=== PATIENT | male | born 1970 | race Caucasian/White ===

== ENCOUNTER → 2017-12-28 06:42 | Outpatient (CLI) | payer BC, OTHER, SELFPAY ==
--- NOTE | 2017-12-28 06:48 | CT_ITS ---
STUDY: CT CHEST WITHOUT CONTRAST REASON FOR EXAM: Male, 47 years old. Dyspnea, sarcoidosis and asthma. RADIATION DOSAGE (If Supplied By Facility): CTDIvol = ( 16.61 ) mGy, DLP = ( 611.79 ) mGycm TECHNIQUE: Transaxial imaging was performed without the administration of intravenous contrast material. Individualized dose optimization techniques were used for this CT. COMPARISON: 14 October 2013 FINDINGS: The lungs are normal. There is no demonstrated pleural abnormality. Normal heart and pericardium. Scattered subcentimeter lymph nodes within the mediastinum are present. Normal hilar regions. Normal unenhanced pulmonary arteries. Normal aorta arch and descending thoracic aorta. Normal osseous structures. There is no demonstrated abnormality of the visualized upper abdomen. CT/Chest without Contrast IMPRESSION: No evidence of focal consolidation or evidence of acute airspace disease. Scattered mediastinal subcentimeter lymph nodes are present. Electronically Signed: Ranjit Diaz DO at 7:37 EST , Service support ,
== END ==
PROVIDERS: Family Provider Family Medicine; PCP Family Medicine; Visit Provider Internal Medicine Pulmonary Disease
DX: R06.00 Dyspnea, unspecified (principal)
CPT/HCPCS: 71250

== ENCOUNTER → 2018-05-27 11:47 | Outpatient (CLI) | payer BC, OTHER, SELFPAY ==
--- NOTE | 2018-05-27 12:09 | RAD_ITS ---
STUDY: X-RAY - PELVIS AND RIGHT HIP REASON FOR EXAM: Male, 47 years old. Right groin pain. Right hip pain. TECHNIQUE: Radiological exam, hip, unilateral, with pelvis when performed; 2 or 3 views. COMPARISON: None. FINDINGS: There is a non-specific bowel gas pattern. Normal visualized soft tissue structures. Normal bilateral iliac wings, sacroiliac joints and visualized sacrum. Normal bilateral superior and inferior pubic rami. Normal pubic symphysis. Normal bilateral ischial tuberosities. Normal visualized right femoral head. There is very minimal spurring of the right acetabulum Normal right hip joint. RAD/Hip 2-3 Views with Pelvis IMPRESSION: Minimal spurring of the right acetabulum without other abnormality. Electronically Signed: Ramos Chairez DO at 8:29 EDT Tel [phone], Service support ,
[2018-05-27 15:50] LABS: ALB/GLOB Ratio 1.1 RATIO (0.9-2.4); AST(SGOT) 23 U/L (15-37); Alanine Aminotransfer ALT/SGPT 46 U/L (16-61); Albumin, Serum 4.2 g/dL (3.2-5.0); Alkaline Phosphatase 56 U/L (45-117); Anion Gap 7 (5-15); BUN 13 mg/dL (7-18); BUN/Creat Ratio 14.7 RATIO (10-20); CPK Total, Creatine Kinase 390 U/L (39-308); Chloride 102 mmol/L (98-107); Creatinine, Serum 0.88 mg/dL (0.70-1.30); EST Glomerular Filtration Rate 98 mL/min (>60); Est Glom Filt Rate - Afr Amer 118 mL/min (>60); Globulin 3.7 g/dL (2.2-4.2); Glucose 112 mg/dL (74-106); Magnesium 2.1 mg/dL (1.6-2.6); Potassium 4.4 mmol/L (3.5-5.1); Protein, Total 7.9 g/dL (6.4-8.2); Sodium Level 140 mmol/L (136-145); Thyroid Stim Hormone (TSH) 1.44 uIU/mL (0.358-3.74)
[2018-05-27 16:07] LABS: Hemoglobin A1c 6.7 % (4.2-6.3)
[2018-05-27 16:35] LABS: Erythrocyte Sedimentation Rate 5 mm/hr (0-15)
== END ==
PROVIDERS: Visit Provider Family Medicine
DX: R25.2 Cramp and spasm (principal); E11.9 Type 2 diabetes mellitus without complications; K76.0 Fatty (change of) liver, not elsewhere classified; I10 Essential (primary) hypertension; D86.9 Sarcoidosis, unspecified
CPT/HCPCS: 36415; 73502; 80053; 82550; 83036; 83735; 84443; 85652; 86140

== ENCOUNTER → 2018-07-17 15:48 | Outpatient (CLI) | payer BC, OTHER, SELFPAY | PROVIDERS: Family Provider Family Medicine; PCP Family Medicine; Visit Provider Nurse Practitioner Family | DX: M54.5 Low back pain (principal); M54.17 Radiculopathy, lumbosacral region | CPT/HCPCS: 72110 ==

== ENCOUNTER → 2018-11-18 07:40 | Outpatient (CLI) | payer BC, OTHER, SELFPAY ==
--- NOTE | 2018-11-18 08:01 | RAD_ITS ---
STUDY: X-RAY CHEST REASON FOR EXAM: Male, 48 years old. Asthma sarcoid TECHNIQUE: PA and lateral views of the chest. COMPARISON: December 28, 2017 CT chest FINDINGS: On lateral view there is a focal infrahilar density projected over the lung bases. There is borderline cardiomegaly. Normal mediastinum and agustin. Normal visualized pulmonary arteries. Normal visualized aortic arch and descending thoracic aorta. There are diffuse degenerative changes of the visualized thoracic spine. Normal visualized ribs, clavicles, and shoulders. There is no demonstrated abnormality of the visualized soft tissue structures of the upper abdomen. RAD/Chest PA and Lateral IMPRESSION: Question infrahilar density projected over the lateral view only which may represent new mass lymph node or summation of shadows. Recommend follow-up CT scan of the chest to exclude mass. Electronically Signed: Payton Baptiste MD at 2:53 EST Tel , Service support ,
[2018-11-18 09:29] LABS: Erythrocyte Sedimentation Rate 12 mm/hr (0-15)
[2018-11-18 10:08] LABS: AST(SGOT) 24 U/L (15-37); Alanine Aminotransfer ALT/SGPT 54 U/L (16-61); Albumin, Serum 3.9 g/dL (3.2-5.0); Alkaline Phosphatase 71 U/L (45-117); Bilirubin, Direct 0.12 mg/dL (0.00-0.30); Globulin 3.7 g/dL (2.2-4.2); Protein, Total 7.6 g/dL (6.4-8.2)
[2018-11-19 14:24] LABS: Angiotensin Convert Enzyme 85 U/L (14-82)
--- OUTSIDE RECORDS SUMMARY | 2019-02-19 12:39 | XMS RPT_ITS ---
:1970 Author Organization OHIP Care Team Providers Name Role Phone Miki Gleason Attending Unavailable Miki Gleason Referring Unavailable Daniel Jimenez Primary Care Unavailable Miki Gleason Attending Unavailable Miki Gleason Referring Unavailable Daniel Jimenez Primary Care Unavailable Miki Gleason Attending Unavailable Daniel Jimenez Primary Care Unavailable Daniel Jimenez Attending Unavailable PrebiEstephanie bass INTRUSION ANALYST-C Attending Unavailable PrebishEstephanie INTRUSION ANALYST-C Referring Unavailable Daniel Jimenez Primary Care Unavailable PROBLEMS PROBLEMS DATE TYPE CONDITION / CODE ATTENDING STATUS SOURCE 07/17/2018 Unknown M54.5 - Low back PrebishEstephanie pain / INTRUSION ANALYST-C Community M54.5(ICD-10) Hospital Repository 07/17/2018 Unknown M54.17 - Prebish, Estephanie Active Epi Radiculopathy, INTRUSION ANALYST-C [facility] / M54.17(ICD-10) Repository 05/27/2018 Unknown R25.2 - Cramp and Daniel Jimenez spasm / Community R25.2(ICD-10) Hospital Repository 05/27/2018 Unknown E11.9 - Type 2 Daniel Jimenez diabetes mellitus Community without Hospital complications / Repository E11.9(ICD-10) 05/27/2018 Unknown K76.0 - Fatty Daniel Jimenez (change of) liver, Community not elsewhere Hospital classified / Repository K76.0(ICD-10) 05/27/2018 Unknown I10 - Essential Daniel Jimenez (primary) Community hypertension / Hospital I10(ICD-10) Repository 05/27/2018 Unknown D86.9 - Daniel Jimenez Sarcoidosis, Community unspecified / Hospital D86.9(ICD-10) Repository 05/27/2018 Unknown M25.551 - Pain in Daniel Jimenez right hip / Community M25.551(ICD-10) Hospital Repository PROCEDURES PROCEDURES No Procedure Records FoundRESULTS RESULTS CALCIUM,TOTAL Collected: 12/18/2018 Status: F Source: [place] 8:30 AM [facility] REPOSITORY TYPE CODE TESTS RESULT OUT OF RANGE REFERENCE UNITS LAB L501.2200 8.5-10.1 mg/dL Normal CA 9.3 Performed By: #### L501.2200, L501.5200, L501.5294 #### [facility] [address] [place], [place], [address] MAGNESIUM Collected: 12/18/2018 Status: F Source: [place] 8:30 AM [facility] REPOSITORY TYPE CODE TESTS RESULT OUT OF RANGE REFERENCE UNITS LAB L501.5200 1.6-2.6 mg/dL Normal MG 1.9 Performed By: #### L501.2200, L501.5200, L501.5294 #### [facility] [address] [place], [address] ELECTROLYTE PANEL Collected: 12/18/2018 Status: F Source: [place] 8:30 AM [facility] REPOSITORY TYPE CODE TESTS RESULT OUT OF RANGE REFERENCE UNITS LAB L501.5300 136-145 mmol/L Normal NA 138 LAB L501.5600 3.5-5.1 mmol/L Normal K 4.7 LAB L501.5900 98-107 mmol/L Normal CL 102 LAB L501.6100 21.0-32.0 mmol/L Normal CO2 30.0 LAB L501.6200 5-15 Normal GAP 6 Performed By: #### L501.2200, L501.5200, L501.5294 #### [facility] [address] [place], [address] CHEST PA AND LATERAL Observed: 11/18/2018 Status: F Source: [place] 8:01 AM [facility] REPOSITORY [facility] Imaging Services [address] [place] [address] [place] [address] Chest PA and Lateral MR#: [id number] Acct: [id number] Name: JAKE CANTRELL Rep #: [id number] : 1970 M 48 From: Payton Baptiste MD PCP: Daniel Jimenez DO Status: REG CLI Study: Chest PA and Lateral Date of Exam: 11/18/18 Exam# [id number] Ordering Dr: Miki Gleason MD STUDY: X-RAY CHEST REASON FOR EXAM: Male, 48 years old. Asthma sarcoid TECHNIQUE: PA and lateral views of the chest. COMPARISON: December 28, 2017 CT chest FINDINGS: On lateral view there is a focal infrahilar density projected over the lung bases. There is borderline cardiomegaly. Normal mediastinum and agustin. Normal visualized pulmonary arteries. Normal visualized aortic arch and descending thoracic aorta. There are diffuse degenerative changes of the visualized thoracic spine. Normal visualized ribs, clavicles, and shoulders. There is no demonstrated abnormality of the visualized soft tissue structures of the upper abdomen. RAD/Chest PA and Lateral IMPRESSION: Question infrahilar density projected over the lateral view only which may represent new mass lymph node or summation of shadows. Recommend follow-up CT scan of the chest to exclude mass. Electronically Signed: Payton Baptiste MD at 2:53 EST Tel , Service support , CC: Daniel Jimenez DO; Miki Gleason MD Suction Worker: Signed ERYTHROCYTE SED RATE Collected: 11/18/2018 Status: F Source: [place] 7:49 AM [facility] REPOSITORY TYPE CODE TESTS RESULT OUT OF RANGE REFERENCE UNITS LAB L102.0000 0-15 mm/hr Normal SED RATE 12 Performed By: #### L101.9900 #### [facility] [address] [place], [place], [id number] LIVER PROFILE Collected: 11/18/2018 Status: F Source: [place] 7:49 AM [facility] REPOSITORY TYPE CODE TESTS RESULT OUT OF RANGE REFERENCE UNITS LAB L501.1500 6.4-8.2 g/dL Normal T PROT 7.6 LAB L501.1800 3.2-5.0 g/dL Normal ALB 3.9 LAB L501.1950 2.2-4.2 g/dL Normal GLOB 3.7 LAB L501.4100 15-37 U/L Normal AST 24 LAB L501.4305 45-117 U/L Normal ALK P 71 LAB L501.4405 16-61 U/L Normal ALT 54 LAB L501.4600 0.20-1.00 mg/dL Normal T BILI 0.40 LAB L501.4700 0.00-0.30 mg/dL Normal D BILI 0.12 Performed By: #### L500.3400, L501.6750 #### [facility] [address] [place], [place], [address] CRP, HIGH SENSITIVITY Collected: 11/18/2018 Status: F Source: [place] CARDIAC 7:49 AM [facility] REPOSITORY TYPE CODE TESTS RESULT OUT OF RANGE REFERENCE UNITS LAB L501.6750 mg/L High CRP HIGH 12.40 SENS Result Comment: Low Relative Risk of CVD <1.0 mg/L Average Relative Risk of CVD 1.0 - 3.0 mg/L High Relative Risk of CVD >3.0 mg/L Performed By: #### L500.3400, L501.6750 #### [facility] [address] [place], [address] ANGIOTENSIN CONVERT Collected: 11/18/2018 Status: F Source: [place] ENZYME 7:49 AM [facility] REPOSITORY TYPE CODE TESTS RESULT OUT OF RANGE REFERENCE UNITS LAB L3100.6900 14-82 U/L High JAMES 21079 85 Result Comment: Performed at: [facility] [id number] Clinical Services Director: Jonny Damon PhD, Phone: [phone] Performed By: #### L3100.6900 #### [facility] (refer to report for specific site) refer to report for address and phone number L/S SPINE MIN 4 Observed: 07/17/2018 Status: F Source: [place] VIEWS 3:52 PM [facility] REPOSITORY [facility] Imaging Services [address] [place] [address] L/S Spine Min 4 Views MR#: [id number] Acct: [id number] Name: JAKE CANTRELL Rep #: [id number] : 1970 M 47 From: Alberto Hairston PCP: Daniel Jimenez DO Status: REG CLI Study: L/S Spine Min 4 Views Date of Exam: 07/17/18 Exam# [id number] Ordering Dr: Estephanie Venegas INTRUSION ANALYSTLyndsey STUDY: X-RAY - LUMBAR SPINE REASON FOR EXAM: Male, 47 years old. Back pain TECHNIQUE: 5 view(s) of the lumbar spine were obtained. COMPARISON: None FINDINGS: Normal lumbar lordosis. There is no substantial scoliosis. There is a normal alignment of the vertebrae. Normal vertebral bodies and endplates. Normal disc space heights. The soft tissue structures are unremarkable. RAD/L/S Spine Min 4 Views IMPRESSION: Normal x-ray examination of the lumbar spine. Electronically Signed: Alberto Hairston MD at 6:42 EDT , Service support , CC: Estephanie Venegas; Daniel Jimenez DO Suction Worker: Signed HIP 2-3 VIEWS WITH Observed: 05/27/2018 Status: F Source: [place] PELVIS 12:09 PM [facility] REPOSITORY [facility] Imaging Services [address] [address] Hip 2-3 Views with Pelvis MR#: [id number] Acct: [id number] Name: JAKE CANTRELL Rep #: [id number] : 1970 M 47 From: Ramos Chairez DO PCP: Status: REG CLI Study: Hip 2-3 Views with Pelvis Date of Exam: 05/27/18 Exam# [id number] Ordering Dr: Daniel Jimenez DO STUDY: X-RAY - PELVIS AND RIGHT HIP REASON FOR EXAM: Male, 47 years old. Right groin pain. Right hip pain. TECHNIQUE: Radiological exam, hip, unilateral, with pelvis when performed; 2 or 3 views. COMPARISON: None. FINDINGS: There is a non-specific bowel gas pattern. Normal visualized soft tissue structures. Normal bilateral iliac wings, sacroiliac joints and visualized sacrum. Normal bilateral superior and inferior pubic rami. Normal pubic symphysis. Normal bilateral ischial tuberosities. Normal visualized right femoral head. There is very minimal spurring of the right acetabulum Normal right hip joint. RAD/Hip 2-3 Views with Pelvis IMPRESSION: Minimal spurring of the right acetabulum without other abnormality. Electronically Signed: Ramos AtlantaDO at 8:29 EDT Tel [phone], Service support , CC: Daniel VeraBarbaraquan CARMEN Suction Worker: Signed COMPREHENSIVE METABOLIC Collected: 05/27/2018 Status: F Source: [place] PROFIL 11:49 AM [facility] REPOSITORY TYPE CODE TESTS RESULT OUT OF RANGE REFERENCE UNITS LAB L501.0100 74-106 mg/dL High GLU 112 Result Comment: Fasting Glucose result from 100 to 125 mg/dL suggests IMPAIRED HOMEOSTASIS per A.D.A. criteria. Please note revised GLUCOSE reference range effective 2018. LAB L501.1000 7-18 mg/dL Normal BUN 13 LAB L501.1100 0.70-1.30 mg/dL Normal CREAT,SERUM 0.88 Result Comment: The validity of the calculated GFR AND GFRAA in patients over 70 years has not been determined. Clinical correlation is essential. LAB L501.1110 >60 mL/min Normal EST GFR 98 Result Comment: Non- GFR Calc LAB L501.1115 >60 mL/min Normal EST GFR - AA 118 Result Comment: GFR Calc LAB L501.1300 10-20 RATIO Normal BUN/CRE 14.7 LAB L501.1500 6.4-8.2 g/dL T Normal PROT 7.9 LAB L501.1800 3.2-5.0 g/dL Normal ALB 4.2 LAB L501.1950 2.2-4.2 g/dL Normal GLOB 3.7 LAB L501.2000 0.9-2.4 RATIO Normal A/G 1.1 LAB L501.2200 8.5-10.1 mg/dL CA Normal 9.0 LAB L501.4100 15-37 U/L Normal AST 23 LAB L501.4305 45-117 U/L Normal ALK P 56 LAB L501.4405 16-61 U/L Normal ALT 46 LAB L501.4600 0.20-1.00 mg/dL T Normal BILI 0.50 LAB L501.5300 136-145 mmol/L NA Normal 140 LAB L501.5600 3.5-5.1 mmol/L K Normal 4.4 LAB L501.5900 98-107 mmol/L CL Normal 102 LAB L501.6100 21.0-32.0 mmol/L Normal CO2 31.0 LAB L501.6200 5-15 Normal GAP 7 Performed By: #### L500.4050, L501.3620, L501.5200, L501.6710, L501.9520 #### [facility] [address] [place], [address] CPK TOTAL, CREATINE Collected: 05/27/2018 Status: F Source: [place] KINASE 11:49 AM [facility] REPOSITORY TYPE CODE TESTS RESULT OUT OF RANGE REFERENCE UNITS LAB L501.3620 39-308 U/L High CPK TOTAL 390 Performed By: #### L500.4050, L501.3620, L501.5200, L501.6710, L501.9520 #### [facility] [address] [place], [address] MAGNESIUM Collected: 05/27/2018 Status: F Source: [place] 11:49 AM [facility] REPOSITORY TYPE CODE TESTS RESULT OUT OF RANGE REFERENCE UNITS LAB L501.5200 1.6-2.6 mg/dL Normal MG 2.1 Performed By: #### L500.4050, L501.3620, L501.5200, L501.6710, L501.9520 #### [facility] [address] [place], [address] CRP Collected: 05/27/2018 Status: F Source: [place] 11:49 AM [facility] REPOSITORY TYPE CODE TESTS RESULT OUT OF RANGE REFERENCE UNITS LAB L501.6710 0.0-3.0 mg/L High 7.40 C-REACTIVE PROT Result Comment: C-Reactive Protein (CRP) provides useful information for the diagnosis, therapy and monitoring of inflammatory processes and associated diseases. For the evaluation of Relative Risk for Cardiovascular Disease, a High Sensitivity CRP (HSCRP) should be ordered. Performed By: #### L500.4050, L501.3620, L501.5200, L501.6710, L501.9520 #### [facility] [address] [place], [address] THYROID STIM HORMONE Collected: 05/27/2018 Status: F Source: [place] (TSH) 11:49 AM [facility] REPOSITORY TYPE CODE TESTS RESULT OUT OF RANGE REFERENCE UNITS LAB L501.9520 0.358-3.74 uIU/mL Normal TSH 1.44 Performed By: #### L500.4050, L501.3620, L501.5200, L501.6710, L501.9520 #### [facility] [address] [place], [address] HEMOGLOBIN A1C Collected: 05/27/2018 Status: F Source: [place] 11:49 AM [facility] REPOSITORY TYPE CODE TESTS RESULT OUT OF RANGE REFERENCE UNITS LAB L501.9985 4.2-6.3 % High HGB A1C 6.7 Performed By: #### L501.9985 #### [facility] [address] [place], [address] ERYTHROCYTE SED RATE Collected: 05/27/2018 Status: F Source: [place] 11:49 AM [facility] REPOSITORY TYPE CODE TESTS RESULT OUT OF RANGE REFERENCE UNITS LAB L102.0000 0-15 mm/hr Normal SED RATE 5 Performed By: #### L101.9900 #### [facility] [address] [place], [address] CHEST WITHOUT Observed: 12/28/2017 Status: F Source: [place] CONTRAST 6:48 AM [facility] REPOSITORY [facility] Imaging Services [address] [place] [address] Chest without Contrast MR#: [id number] Acct: [id number] Name: JAKE CANTRELL Rep #: [id number] : 1970 M 47 From: Ranjit Diaz DO PCP: Daniel Jimenez DO Status: REG CLI Study: Chest without Contrast Date of Exam: 12/28/17 Exam# [id number] Ordering Dr: Miki Gleason MD STUDY: CT CHEST WITHOUT CONTRAST REASON FOR EXAM: Male, 47 years old. Dyspnea, sarcoidosis and asthma. RADIATION DOSAGE (If Supplied By Facility): CTDIvol = ( 16.61 ) mGy, DLP = ( 611.79 ) mGycm TECHNIQUE: Transaxial imaging was performed without the administration of intravenous contrast material. Individualized dose optimization techniques were used for this CT. COMPARISON: 14 October 2013 FINDINGS: The lungs are normal. There is no demonstrated pleural abnormality. Normal heart and pericardium. Scattered subcentimeter lymph nodes within the mediastinum are present. Normal hilar regions. Normal unenhanced pulmonary arteries. Normal aorta arch and descending thoracic aorta. Normal osseous structures. There is no demonstrated abnormality of the visualized upper abdomen. CT/Chest without Contrast IMPRESSION: No evidence of focal consolidation or evidence of acute airspace disease. Scattered mediastinal subcentimeter lymph nodes are present. Electronically Signed: Ranjit Diaz DO at 7:37 EST , Service support , CC: Daniel Jimenez DO; Miki Gleason MD Suction Worker: Signed ALLERGIES ALLERGIES DATE TYPE / CODE NAME / CODE REACTION SEVERITY SOURCE 10/04/2017 Drug No Known Unknown [facility] Allergy/4160 Allergies/F00 Hospital 92585(SNOMED [id number](RXNOR Repository CT) M) ENCOUNTERS ENCOUNTERS ADMIT/DISCHARGE ACCOUNT ADMITTING ENCOUNTER LOCATION SOURCE NUMBER CLASS 12/18/2018 [id number] Ambulatory Epi [place] 8 [facility] ing:LABSPEC Repository 11/18/2018 [id number] Ambulatory Epi [place] 6 [facility] ing:LAB Repository 07/17/2018 [id number] Ambulatory Epi [place] 7 [facility] ing:MTRAD Repository 05/27/2018 [id number] [place] [facility] ing:BFHLAB Repository 12/28/2017 [id number] [place] 0 [facility] ing:CT Repository PAYERS PAYERS ENCOUNTER GUARANTOR PAYER SUBSCRIBER SOURCE 12/18/2018 JAKE D Primary JAKE D [place] [id number] Insurance:ANTHEMPolic BISESIDOB: [facility] y Number: [id number] [id number] Repository 313[address]Yot: ([phone]) Date:2259-91-73HE [phone] () [id number] [place] [address] 410[address]ZJ: 12/18/2018 Secondary BJ M [place] Insurance:MEDICAL BISESIDOB: [facility] [id number] Hospital Number: Repository [id number] Date:0601-31-61YJ [address] [place] [phone]: 12/18/2018 Tertiary NOT GIVENUNK Epi Insurance:SELF PAY [facility] Number: Effective Repository Date:2018-12-18 11/18/2018 JAKE D Primary JAKE D Epi [id number] Insurance:ANTHEMPolic BISESIDOB: [facility] y Number: [id number], [place] [id number] Repository [address]Hqy: ([phone]) Date:4141-78-05EV [phone] () [id number] [place] [address]92[address]WH: 11/18/2018 Secondary BJ M [place] Insurance:MEDICAL BISESIDOB: [facility] [id number] Hospital Number: Repository [id number] Date:1140-00-76SD [address] [place] [phone]: 11/18/2018 Tertiary NOT GIVENUNK Epi Insurance:SELF PAY [facility] Number: Effective Repository Date:2018-11-18 07/17/2018 JAKE D Primary JAKE D [place] [id number] Insurance:ANTHEMPolic BISESIDOB: [facility] y Number: [id number], [place] [id number] Repository [address]Oyp: [phone]) Date:5892-47-30NL [phone] () [place], [place] [address]EU: 07/17/2018 Secondary BJ M [place] Insurance:MEDICAL BISESIDOB: [facility] [id number] Hospital Number: Repository [id number] Date:3508-20-56UR [address] [place] [phone]: 07/17/2018 Tertiary NOT GIVENUNK [place] Insurance:SELF PAY [facility] Hospital Number: Effective Repository Date:2018-07-17 05/27/2018 Jake Primary Jake Epi [id number] Insurance:ANTHEMPolic BisesiDOB: [facility] y Number: [id number] [id number] Repository [address]Pob: [phone]) Date:5649-96-67AR [phone] () [id number] [place] [address]AA: 05/27/2018 Secondary BJ M [place] Insurance:MEDICAL BISESIDOB: [facility] [id number] Hospital Number: Repository [id number] Date:4209-00-47YB [address] [place] [phone]: 05/27/2018 Tertiary NOT GIVENUNK Epi Insurance:SELF PAY [facility] Number: Effective Repository Date:2018-05-27 12/28/2017 Jake Primary Jake Epi [id number] Insurance:ANTHEMPolic BisesiDOB: [facility] y Number: [id number] [id number] Repository [address]Smx: Date:7055-63-72FT [phone] [id number] SIMMS -4 () [id number]: 12/28/2017 Secondary BJ M Epi Insurance:MEDICAL BISESIDOB: [facility] [id number] Hospital Number: Repository [id number] Date:2482-70-59KV [address] [place] [phone]: 12/28/2017 Tertiary NOT GIVENUNK Epi Insurance:SELF PAY [facility] Number: Effective Repository Date:2017-12-24
== END ==
PROVIDERS: Family Provider Family Medicine; PCP Family Medicine; Referring Provider Internal Medicine Pulmonary Disease; Visit Provider Internal Medicine Pulmonary Disease
DX: J45.909 Unspecified asthma, uncomplicated (principal)
CPT/HCPCS: 36415; 71046; 80076; 82164; 85652; 86141

== ENCOUNTER → 2018-12-18 12:55 | Outpatient (CLI) | payer BC, OTHER, SELFPAY ==
[2018-12-18 13:22] LABS: Anion Gap 6 (5-15); Calcium,Total 9.3 mg/dL (8.5-10.1); Chloride 102 mmol/L (98-107); Magnesium 1.9 mg/dL (1.6-2.6); Potassium 4.7 mmol/L (3.5-5.1); Sodium Level 138 mmol/L (136-145)
--- OUTSIDE RECORDS SUMMARY | 2019-02-22 05:30 | XMS RPT_ITS ---
:1970 Author Organization OHIP Care Team Providers Name Role Phone Miki Gleason Attending Unavailable Miki Gleason Referring Unavailable Daniel Jimenez Primary Care Unavailable Miki Gleason Attending Unavailable Miki Gleason Referring Unavailable Daniel Jimenez Primary Care Unavailable Daniel Jimenez Attending Unavailable Prebish, Estephanie CLINICAL LAW PROFESSOR-C Attending Unavailable Prebish, Estephanie CLINICAL LAW PROFESSOR-C Referring Unavailable Daniel Jimenez Primary Care Unavailable PROBLEMS PROBLEMS DATE TYPE CONDITION / CODE ATTENDING STATUS SOURCE 07/17/2018 Unknown M54.5 - Low back Prebish, Estephanie Active Epi pain / CLINICAL LAW PROFESSOR-C [facility] M54.5(ICD-10) Hospital Repository 07/17/2018 Unknown M54.17 - Prebish, Estephanie Active Epi Radiculopathy, CLINICAL LAW PROFESSOR-C [facility] lumbosacral [facility] / M54.17(ICD-10) Repository 05/27/2018 Unknown R25.2 - Cramp and Daniel Jimenez spasm / Community R25.2(ICD-10) Hospital Repository 05/27/2018 Unknown E11.9 - Type 2 Daniel Jimenez Active Epi diabetes mellitus Community without Hospital complications / [...] RESULTS CALCIUM,TOTAL Collected: 12/18/2018 Status: F Source: EPI 8:30 AM [facility] REPOSITORY TYPE CODE TESTS RESULT OUT OF RANGE REFERENCE UNITS LAB L501.2200 8.5-10.1 mg/dL Normal CA 9.3 Performed By: #### L501.2200, L501.5200, L501.5294 #### [facility] [address] [place], [place], [id number] MAGNESIUM Collected: 12/18/2018 Status: F Source: EPI 8:30 AM [facility] REPOSITORY TYPE CODE TESTS RESULT OUT OF RANGE REFERENCE UNITS LAB L501.5200 1.6-2.6 mg/dL Normal MG 1.9 Performed By: #### L501.2200, L501.5200, L501.5294 #### [facility] [address] [place], [address] ELECTROLYTE PANEL Collected: 12/18/2018 Status: F Source: [place] 8:30 AM [facility] REPOSITORY TYPE CODE TESTS RESULT OUT OF RANGE REFERENCE UNITS LAB L501.5300 136-145 mmol/L Normal NA 138 LAB L501.5600 3.5-5.1 mmol/L Normal K 4.7 LAB L501.5900 98-107 mmol/L Normal CL 102 LAB L501.6100 21.0-32.0 mmol/L Normal CO2 30.0 LAB L501.6200 5-15 Normal GAP 6 Performed By: #### L501.2200, L501.5200, L501.5294 #### [facility] [address] [place], [address] CHEST PA AND LATERAL Observed: 11/18/2018 Status: F Source: [place] 8:01 AM [facility] REPOSITORY [facility] Imaging Services [address] [address] Chest PA and Lateral MR#: [id number] Acct: [id number] Name: JAKE CANTRELL Rep #: [id number] : 1970 M 48 From: Payton Baptiste MD PCP: Daniel Jimenez DO Status: REG CLI Study: Chest PA and Lateral Date of Exam: 11/18/18 Exam# [id number] Ordering Dr: Miki Gleason MD STUDY: X-RAY [...] CC: Daniel Jimenez DO; Miki Gleason MD Coremaker Pipe: Signed ERYTHROCYTE SED RATE Collected: 11/18/2018 Status: F Source: EPI 7:49 AM [facility] REPOSITORY TYPE CODE TESTS RESULT OUT OF RANGE REFERENCE UNITS LAB L102.0000 0-15 mm/hr Normal SED RATE 12 Performed By: #### L101.9900 #### [facility] [address] [place], [place], [id number] LIVER PROFILE Collected: 11/18/2018 Status: F Source: EPI 7:49 AM [facility] REPOSITORY TYPE CODE TESTS RESULT OUT OF [...] 0.12 Performed By: #### L500.3400, L501.6750 #### [facility] [address] [place], [place], [id number] CRP, HIGH SENSITIVITY Collected: 11/18/2018 Status: F Source: EPI CARDIAC 7:49 AM [facility] REPOSITORY TYPE CODE TESTS RESULT OUT OF RANGE REFERENCE UNITS LAB L501.6750 mg/L High CRP HIGH 12.40 SENS Result Comment: Low Relative Risk of CVD <1.0 mg/L Average Relative Risk of CVD 1.0 - 3.0 mg/L High Relative Risk of CVD >3.0 mg/L Performed By: #### L500.3400, L501.6750 #### [facility] [address] [place], [address] ANGIOTENSIN CONVERT Collected: 11/18/2018 Status: F Source: EPI ENZYME 7:49 AM [facility] REPOSITORY TYPE CODE TESTS RESULT OUT OF RANGE REFERENCE UNITS LAB L3100.6900 14-82 U/L High JAMES [address] 85 Result Comment: Performed at: - [facility] [id number] Roof Tile Layer: Jonny Damon PhD, Phone: [phone] Performed By: #### L3100.6900 #### [facility] (refer to report for specific site) refer to report for address and phone number L/S SPINE MIN 4 Observed: 07/17/2018 Status: F Source: EPI VIEWS 3:52 PM [facility] REPOSITORY [facility] Imaging Services [address] [address] L/S Spine Min 4 Views MR#: [id number] Acct: [id number] Name: JAKE CANTRELL Rep #: [id number] : 1970 M 47 From: Alberto Hairston PCP: Daniel Jimenez DO Status: REG CLI Study: L/S Spine Min 4 Views Date of Exam: 07/17/18 Exam# [id number] Ordering Dr: Estephanie Venegas STUDY: X-RAY - LUMBAR SPINE REASON FOR [...] , CC: Estephanie Venegas; Daniel Jimenez DO Coremaker Pipe: Signed HIP 2-3 VIEWS WITH Observed: 05/27/2018 Status: F Source: [place] PELVIS 12:09 PM [facility] REPOSITORY [facility] Imaging Services [address] [address] Hip 2-3 Views with Pelvis MR#: [id number] Acct: [id number] Name: JAKE CANTRELL Rep #: [id number] : 1970 M 47 From: Ramos Chairez DO PCP: Status: REG CLI Study: Hip 2-3 Views with Pelvis Date of Exam: 05/27/18 Exam# [id number] Ordering Dr: Daniel Jimenez DO STUDY: X-RAY [...] acetabulum without other abnormality. Electronically Signed: Ramos Chairez DO at 8:29 EDT Tel [phone], Service support , CC: Daniel Jimenez DO Coremaker Pipe: Signed COMPREHENSIVE METABOLIC Collected: 05/27/2018 Status: F Source: EPI REBOLLEDO 11:49 AM [facility] REPOSITORY TYPE CODE TESTS RESULT OUT OF [...] #### L500.4050, L501.3620, L501.5200, L501.6710, L501.9520 #### [facility] [address] [place], [address] CPK TOTAL, CREATINE Collected: 05/27/2018 Status: F Source: EPI KINASE 11:49 AM [facility] REPOSITORY TYPE CODE TESTS RESULT OUT OF RANGE REFERENCE UNITS LAB L501.3620 39-308 U/L High CPK TOTAL 390 Performed By: #### L500.4050, L501.3620, L501.5200, L501.6710, L501.9520 #### [facility] [address] [place], [address] MAGNESIUM Collected: 05/27/2018 Status: F Source: EPI 11:49 AM [facility] REPOSITORY TYPE CODE TESTS RESULT OUT OF RANGE REFERENCE UNITS LAB L501.5200 1.6-2.6 mg/dL Normal MG 2.1 Performed By: #### L500.4050, L501.3620, L501.5200, L501.6710, L501.9520 #### [facility] [address] [place], [address] CRP Collected: 05/27/2018 Status: F Source: EPI 11:49 AM [facility] REPOSITORY TYPE CODE TESTS RESULT OUT OF [...] #### L500.4050, L501.3620, L501.5200, L501.6710, L501.9520 #### [facility] [address] [place], [address] THYROID STIM HORMONE Collected: 05/27/2018 Status: F Source: EPI (TSH) 11:49 AM [facility] REPOSITORY TYPE CODE TESTS RESULT OUT OF RANGE REFERENCE UNITS LAB L501.9520 0.358-3.74 uIU/mL Normal TSH 1.44 Performed By: #### L500.4050, L501.3620, L501.5200, L501.6710, L501.9520 #### [facility] [address] [place], [address] HEMOGLOBIN A1C Collected: 05/27/2018 Status: F Source: EPI 11:49 AM [facility] REPOSITORY TYPE CODE TESTS RESULT OUT OF RANGE REFERENCE UNITS LAB L501.9985 4.2-6.3 % High HGB A1C 6.7 Performed By: #### L501.9985 #### [facility] [address] [place], [address] ERYTHROCYTE SED RATE Collected: 05/27/2018 Status: F Source: EPI 11:49 AM [facility] REPOSITORY TYPE CODE TESTS RESULT OUT OF RANGE REFERENCE UNITS LAB L102.0000 0-15 mm/hr Normal SED RATE 5 Performed By: #### L101.9900 #### [facility] [address] [place], [address] ALLERGIES ALLERGIES DATE TYPE / CODE NAME / CODE REACTION SEVERITY SOURCE 10/04/2017 Drug No Known Unknown [facility] Allergy/4160 Allergies/F00 [facility] [address]39(SNOMED 2420158(RXNOR Repository CT) M) ENCOUNTERS ENCOUNTERS ADMIT/DISCHARGE ACCOUNT ADMITTING ENCOUNTER LOCATION SOURCE NUMBER CLASS 12/18/2018 [id number] Ambulatory [facility] 8 [facility] ing:LABSPEC Repository 11/18/2018 [id number] Ambulatory [facility] 6 [facility] ing:LAB Repository 07/17/2018 [id number] Ambulatory [facility] 7 [facility] ing:MTRAD Repository 05/27/2018 [id number] Ambulatory [facility] 7 [facility] ing:BFHLAB Repository PAYERS PAYERS ENCOUNTER GUARANTOR PAYER SUBSCRIBER SOURCE 12/18/2018 JAKE Loya Primary JAKE Sarkaroster [id number] Insurance:ANTHEMPolic BISESIDOB: [facility] y [place]: [id number] [id number] Repository [address]Ebs: (330) Date:4569-67-94BO [phone] () [address] [place] [address]DA: 12/18/2018 Secondary BJ M [place] Insurance:MEDICAL BISESIDOB: [facility] [id number] Hospital Number: Repository [id number] Date:8334-84-61UH [address] [place] [address]UM: 12/18/2018 Tertiary NOT GIVENUNK [place] Insurance:SELF PAY [facility] Hospital Number: Effective Repository Date:2018-12-18 11/18/2018 JAKE D Primary JAKE D Epi [id number] Insurance:ANTHEMPolic BISESIDOB: [facility] y Number: [id number] [id number] Repository [address]Nod: (330) Date:9701-98-09EI [phone] () [id number] [place] [address]CZ: 11/18/2018 Secondary BJ M [place] Insurance:MEDICAL BISESIDOB: [facility] [id number] Hospital Number: Repository [id number] Date:1180-27-16UH [address] [address]BG: 11/18/2018 Tertiary NOT GIVENUNK Epi Insurance:SELF PAY [facility] Hospital Number: Effective Repository Date:2018-11-18 07/17/2018 JAKE D Primary JAKE D [place] [id number] Insurance:ANTHEMPolic BISESIDOB: [facility] [place] y Number: [id number] [id number] Repository [address]Btk: ([phone]) Date:7348-04-44FV [phone] () [id number] [place] [address]LA: 07/17/2018 Secondary BJ M [place] Insurance:MEDICAL BISESIDOB: [facility] [id number] Hospital Number: Repository [id number] Date:2044-42-45[address], [place] [address]PN: 07/17/2018 Tertiary NOT GIVENUNK Epi Insurance:SELF PAY [facility] Number: Effective Repository Date:2018-07-17 05/27/2018 Jake Primary Jake [place] [id number] Insurance:ANTHEMPolic BisesiDOB: [facility] Number: [id number] [id number] Repository [address]Hkb: 330) Date:7837-17-22UO [phone] () [address], [place] [address]AN: 05/27/2018 Secondary BJ M [place] Insurance:MEDICAL BISESIDOB: [facility] [id number] Hospital Number: Repository [id number] Date:3752-29-71PA [address], [place] [address]BE: 05/27/2018 Tertiary NOT GIVENUNK Epi Insurance:SELF PAY [facility] Hospital Number: Effective Repository Date:2018-05-27
== END ==
PROVIDERS: Family Provider Family Medicine; PCP Family Medicine; Referring Provider Internal Medicine Pulmonary Disease; Visit Provider Internal Medicine Pulmonary Disease
DX: J45.909 Unspecified asthma, uncomplicated (principal); D86.9 Sarcoidosis, unspecified
CPT/HCPCS: 80051; 82310; 83735

== ENCOUNTER → 2019-01-23 16:18 | Outpatient (CLI) | payer BC, OTHER, SELFPAY ==
[2019-01-23 17:01] LABS: Erythrocyte Sedimentation Rate 13 mm/hr (0-15)
[2019-01-26 15:38] LABS: Angiotensin Convert Enzyme 105 U/L (14-82)
== END ==
PROVIDERS: Family Provider Family Medicine; PCP Family Medicine; Referring Provider Internal Medicine Pulmonary Disease; Visit Provider Internal Medicine Pulmonary Disease
DX: J45.909 Unspecified asthma, uncomplicated (principal); D86.9 Sarcoidosis, unspecified; M25.50 Pain in unspecified joint
CPT/HCPCS: 36415; 82164; 85652; 87804

== ENCOUNTER → 2019-02-10 13:11 | Outpatient (CLI) | payer BC, OTHER, SELFPAY ==
[2019-02-10 13:22] LABS: Absolute Lymphocyte Count 1.07 X10^3/ul (0.83-4.51); Absolute Neutrophil Count 3.2 X10^3/uL (2.0-7.7); Basophil# 0.03 X10^3/uL; Basophil% 0.6 % (0-1); Eosinophil# 0.24 X10^3/uL; Eosinophils% 4.7 % (0-5); Hematocrit 44.7 % (40-54); Hemoglobin 13.9 g/dl (13.0-16.5); Lymphocyte # 1.07 X10^3/ul (4.0); Lymphocyte % 20.9 % (19-41); Mean Corp Hgb Conc 31.1 g/gl (32-36); Mean Corpuscular Hgb 26.1 pg (27.0-32.0); Mean Platelet Vol. 10.7 fl (6.2-12.0); Monocyte# 0.55 X10^3/uL; Monocyte% 10.7 % (0-10); Neutrophil # 3.21 X10^3/uL (2.7-7.7); Neutrophil % 62.7 % (47-70); Platelet Count 228 K/mm3 (150-450); RBC Distribution Width CV 13.4 % (11.6-14.6); RBC Distribution Width SD 41.5 fl (35.1-43.9); Red Blood Count 5.32 M/mm3 (4.6-6.2); White Blood Count 5.1 K/mm3 (4.4-11.0)
[2019-02-10 13:24] LABS: POSITIVE COUNT NO; POSITIVE DIFFERENTIAL NO; POSITIVE MORPHOLOGY NO
[2019-02-10 13:44] LABS: AST(SGOT) 32 U/L (15-37); Alanine Aminotransfer ALT/SGPT 71 U/L (16-61); Albumin, Serum 4.1 g/dL (3.2-5.0); Alkaline Phosphatase 70 U/L (45-117); Anion Gap 9 (5-15); BUN 13 mg/dL (7-18); BUN/Creat Ratio 13.9 RATIO (10-20); Calcium,Total 9.3 mg/dL (8.5-10.1); Chloride 99 mmol/L (98-107); Cholesterol 212 mg/dL (200); Creatinine, Serum 0.94 mg/dL (0.70-1.30); EST Glomerular Filtration Rate 91 mL/min (>60); Est Glom Filt Rate - Afr Amer 110 mL/min (>60); Glucose 189 mg/dL (74-106); High Density Lipoprotein 39 mg/dL; Potassium 4.5 mmol/L (3.5-5.1); Protein, Total 8.1 g/dL (6.4-8.2); Sodium Level 138 mmol/L (136-145); Thyroid Stim Hormone (TSH) 1.67 uIU/mL (0.358-3.74); Triglycerides 170 mg/dL; Very Low Density Lipoprotein 34 mg/dL (5-40)
[2019-02-10 13:49] LABS: Microalbumin,Random Urine < 5.0 mg/L (NO RANGE EST.)
== END ==
PROVIDERS: Family Provider Family Medicine; PCP Family Medicine; Referring Provider Family Medicine; Visit Provider Family Medicine
DX: I10 Essential (primary) hypertension (principal); E11.9 Type 2 diabetes mellitus without complications; R00.0 Tachycardia, unspecified
CPT/HCPCS: 80053; 80061; 82043; 82570; 83036; 84443; 85025

== ENCOUNTER → 2019-03-12 12:30 | Outpatient (CLI) | payer BC, OTHER, SELFPAY ==
[2019-03-12 13:11] LABS: AST(SGOT) 31 U/L (15-37); Alanine Aminotransfer ALT/SGPT 58 U/L (16-61); Albumin, Serum 4.4 g/dL (3.2-5.0); Alkaline Phosphatase 77 U/L (45-117); Bilirubin, Direct 0.13 mg/dL (0.00-0.30); Calcium,Total 9.2 mg/dL (8.5-10.1); Protein, Total 8.4 g/dL (6.4-8.2)
[2019-03-14 15:31] LABS: Angiotensin Convert Enzyme 91 U/L (14-82)
== END ==
PROVIDERS: Family Provider Family Medicine; PCP Family Medicine; Referring Provider Internal Medicine Pulmonary Disease; Visit Provider Internal Medicine Pulmonary Disease
DX: D86.9 Sarcoidosis, unspecified (principal)
CPT/HCPCS: 80076; 82164; 82310; 86140

== ENCOUNTER → 2019-03-16 11:12 | Outpatient (CLI) | payer BC, OTHER, SELFPAY ==
--- NOTE | 2019-03-16 11:16 | RAD_ITS ---
STUDY: X-RAY CHEST REASON FOR EXAM: Male, 48 years old. Sarcoidosis TECHNIQUE: Frontal and lateral views of the chest COMPARISON: 11/18/2018 FINDINGS: The lungs are clear. There are no pleural effusions. There is no pneumothorax. The heart is normal in size. The visualized osseous structures are within normal limits. RAD/Chest PA and Lateral IMPRESSION: Clear lungs. Electronically Signed: Channing Morton, at 19:18 EDT Tel , Service support ,
== END ==
PROVIDERS: Family Provider Family Medicine; PCP Family Medicine; Referring Provider Internal Medicine Pulmonary Disease; Visit Provider Internal Medicine Pulmonary Disease
DX: D86.9 Sarcoidosis, unspecified (principal)
CPT/HCPCS: 71046

== ENCOUNTER → 2019-05-07 | Outpatient (CLI) | payer BC, OTHER, SELFPAY ==
[2019-05-07 14:34] LABS: ALB/GLOB Ratio 1.1 RATIO (0.9-2.4); AST(SGOT) 20 U/L (15-37); Alanine Aminotransfer ALT/SGPT 29 U/L (16-61); Albumin, Serum 4.1 g/dL (3.2-5.0); Alkaline Phosphatase 70 U/L (45-117); Anion Gap 7 (5-15); BUN 15 mg/dL (7-18); BUN/Creat Ratio 16.5 RATIO (10-20); Calcium,Total 9.3 mg/dL (8.5-10.1); Chloride 103 mmol/L (98-107); Cholesterol 181 mg/dL (200); Creatinine, Serum 0.91 mg/dL (0.70-1.30); EST Glomerular Filtration Rate 94 mL/min (>60); Est Glom Filt Rate - Afr Amer 114 mL/min (>60); Globulin 3.7 g/dL (2.2-4.2); Glucose 114 mg/dL (74-106); High Density Lipoprotein 42 mg/dL; Potassium 3.9 mmol/L (3.5-5.1); Protein, Total 7.8 g/dL (6.4-8.2); Sodium Level 140 mmol/L (136-145); Triglycerides 72 mg/dL; Very Low Density Lipoprotein 14 mg/dL (5-40)
[2019-05-07 14:39] LABS: Hemoglobin A1c 6.2 % (4.2-6.3)
== END | disposition home or self-care (01) ==
LOC: LABSPEC 13:59
PROVIDERS: Family Provider Family Medicine; PCP Family Medicine; Visit Provider Family Medicine
DX: E11.9 Type 2 diabetes mellitus without complications (principal); I10 Essential (primary) hypertension; E78.5 Hyperlipidemia, unspecified
CPT/HCPCS: 80053; 80061; 83036

== ENCOUNTER → 2019-11-11 10:16 | Outpatient (CLI) | payer BC, OTHER, SELFPAY ==
[2019-11-11 11:15] LABS: Erythrocyte Sedimentation Rate 2 mm/hr (0-20)
[2019-11-11 11:18] LABS: Absolute Lymphocyte Count 1.55 X10^3/uL (0.83-4.51); Absolute Neutrophil Count 3.3 X10^3/uL (2.0-7.7); Basophil# 0.04 X10^3/uL; Basophil% 0.7 % (0-1); Eosinophil# 0.35 X10^3/uL; Hematocrit 43.3 % (40-54); Lymphocyte # 1.55 X10^3/ul (4.0); Lymphocyte % 26.8 % (19-41); Mean Corp Hgb Conc 32.3 g/dL (32-36); Mean Corpuscular Hgb 27.8 pg (27.0-32.0); Mean Corpuscular Volume 86.1 fL (80-94); Mean Platelet Vol. 9.7 fl (6.2-12.0); Monocyte# 0.57 X10^3/uL; Monocyte% 9.8 % (0-10); NRBC Flagged by Analyzer 0 % (0-5); Neutrophil # 3.26 X10^3/uL (2.7-7.7); Neutrophil % 56.4 % (47-70); Platelet Count 210 K/mm3 (150-450); RBC Distribution Width CV 12.5 % (11.6-14.6); RBC Distribution Width SD 39.3 fl (35.1-43.9); Red Blood Count 5.03 M/mm3 (4.6-6.2); White Blood Count 5.8 K/mm3 (4.4-11.0)
[2019-11-11 11:40] LABS: Hemoglobin A1c 6.6 % (4.2-6.3)
[2019-11-11 11:42] LABS: ALB/GLOB Ratio 1.3 RATIO (0.9-2.4); AST(SGOT) 14 U/L (15-37); Alanine Aminotransfer ALT/SGPT 29 U/L (16-61); Albumin, Serum 4.3 g/dL (3.2-5.0); Alkaline Phosphatase 46 U/L (45-117); Anion Gap 5 (5-15); BUN 18 mg/dL (7-18); BUN/Creat Ratio 19.6 RATIO (10-20); Bilirubin, Direct 0.12 mg/dL (0.00-0.30); CRP < 2.90 mg/L (0.0-3.0); Calcium,Total 9.1 mg/dL (8.5-10.1); Chloride 104 mmol/L (98-107); Cholesterol 198 mg/dL (200); Creatinine, Serum 0.92 mg/dL (0.70-1.30); EST Glomerular Filtration Rate 93 mL/min (>60); Est Glom Filt Rate - Afr Amer 112 mL/min (>60); GGTP 27 U/L (15-85); Globulin 3.2 g/dL (2.2-4.2); Glucose 132 mg/dL (74-106); High Density Lipoprotein 60 mg/dL; Potassium 4.4 mmol/L (3.5-5.1); Protein, Total 7.5 g/dL (6.4-8.2); Sodium Level 139 mmol/L (136-145); Thyroid Stim Hormone (TSH) 1.83 uIU/mL (0.358-3.74); Triglycerides 75 mg/dL; Very Low Density Lipoprotein 15 mg/dL (5-40)
[2019-11-12 15:39] LABS: Angiotensin Convert Enzyme 40 U/L (14-82)
== END ==
PROVIDERS: Family Provider Family Medicine; PCP Family Medicine; Referring Provider Internal Medicine Pulmonary Disease; Visit Provider Internal Medicine Pulmonary Disease
DX: E11.9 Type 2 diabetes mellitus without complications (principal); I10 Essential (primary) hypertension; K76.0 Fatty (change of) liver, not elsewhere classified; R68.89 Other general symptoms and signs
CPT/HCPCS: 36415; 80053; 80061; 82164; 82248; 82977; 83036; 84443; 85025; 85652; 86140

== ENCOUNTER → 2019-11-18 08:39 | Outpatient (CLI) | payer BC, OTHER, SELFPAY ==
--- NOTE | 2019-11-18 08:44 | US_ITS ---
STUDY: ABDOMINAL ULTRASOUND - RIGHT UPPER QUADRANT REASON FOR VISIT: Male, 49 years old sarcoidosis TECHNIQUE: Ultrasound evaluation of the right upper quadrant was performed with real-time and static motley-scale imaging. TECHNICAL QUALITY: Limited. Examination limited by bowel gas. COMPARISON: None. FINDINGS: Liver: The liver measures 16.6 cm. There is normal echogenicity of the liver. The bile ducts are within normal limits. There is hepatic color flow. The direction of portal flow is hepatopetal. There is no demonstrated mass lesion. Gallbladder: Normal distended gallbladder. The gallbladder wall measures 3 mm. There is a negative sonographic Morse''s sign. There is no pericholecystic fluid. There are no gallstones. Common Bile Duct (C.B.D.): The common bile duct measures 4 mm. Pancreas: The pancreas was obscured by bowel gas. Right Kidney: Normal size of the right kidney. The right kidney measures 10.5 x 5.8 x 6.3 cm. Normal renal cortex. The right cortex measures 1.6 cm. There is no demonstrated renal mass or cyst. There is no right hydronephrosis. US/Abdomen Limited IMPRESSION: Nonvisualization of pancreas due to obscuration by bowel gas. The remainder of the study is unremarkable. Electronically Signed: Michael Whiteside MD at 21:53 EST , Service support ,
== END ==
PROVIDERS: Family Provider Family Medicine; PCP Family Medicine; Referring Provider Internal Medicine Pulmonary Disease; Visit Provider Internal Medicine Pulmonary Disease
DX: D86.9 Sarcoidosis, unspecified (principal)
CPT/HCPCS: 76705

== ENCOUNTER → 2019-12-31 12:40 | Outpatient (CLI) | payer BC, OTHER, SELFPAY ==
[2019-12-31 13:18] LABS: AST(SGOT) 17 U/L (15-37); Alanine Aminotransfer ALT/SGPT 39 U/L (16-61); Albumin, Serum 4.4 g/dL (3.2-5.0); Alkaline Phosphatase 42 U/L (45-117); Bilirubin, Direct 0.11 mg/dL (0.00-0.30); Globulin 3.2 g/dL (2.2-4.2); Protein, Total 7.6 g/dL (6.4-8.2)
[2019-12-31 13:30] LABS: Erythrocyte Sedimentation Rate 8 mm/hr (0-20)
[2020-01-01 19:24] LABS: Angiotensin Convert Enzyme 55 U/L (14-82)
== END ==
PROVIDERS: PCP Family Medicine; Referring Provider Internal Medicine Pulmonary Disease; Visit Provider Internal Medicine Pulmonary Disease
DX: D86.9 Sarcoidosis, unspecified (principal); J45.909 Unspecified asthma, uncomplicated
CPT/HCPCS: 80076; 82164; 85652

== ENCOUNTER → 2020-06-17 15:08 | Outpatient (CLI) | payer BC, OTHER, SELFPAY ==
--- NOTE | 2020-06-17 15:13 | MRI_ITS ---
STUDY: MRI LUMBAR SPINE WITHOUT CONTRAST REASON FOR EXAM: Male, 49 years old. Low back pain, radiation to left leg, no injury TECHNIQUE: Standardized fat and water weighted pulse sequences were obtained in the sagittal and axial planes. COMPARISON: September 25, 2017 FINDINGS: lumbar spine is intact and aligned. Marrow, paraspinous soft tissues and SI joints are unremarkable. There are degenerative changes at L5-S1 disc, endplates and subchondral marrow. Conus medullaris terminates at the appropriate level with unremarkable cauda equina. Spinal canal is patent. L4-L5 has central disc herniation with patent canal. There is mild bilateral lateral recess stenosis with mild bilateral foraminal stenosis. L5-S1 has a left subarticular disc protrusion with proximity of herniated disc material to the left traversing S1 nerve root in the lateral recess without direct compression. Right recess is patent. There is mild bilateral foraminal stenosis. MRI/Spine Lumbar (Routine) IMPRESSION: 1. Patent canal. 2. L4-L5 and left L5-S1 disc herniations with possible noncompressive effects on the adjoining nerve roots. 3. No high-grade foraminal stenosis. Electronically Signed: Felix Evans, at 16:56 EDT Tel , Service support ,
== END ==
PROVIDERS: PCP Family Medicine; Referring Provider Family Medicine; Visit Provider Family Medicine
DX: M54.16 Radiculopathy, lumbar region (principal)
CPT/HCPCS: 72148

== ENCOUNTER 2020-07-01 08:30 | Outpatient (RCR) | payer BC, OTHER, SELFPAY ==
--- NOTE | 2020-06-09 11:57 | HP.PTEVAL_ITS ---
Patient's Visit Information CELIA CANTRELL is a 49 year old M referred to Physical Therapy by Dr. Daniel Jimenez DO with a diagnosis of LEFT LUMBAR RADICULOPATHY. Date of Evaluation: 06/09/20 Physical Therapist: Rosa Isela Blackwell, PT, Cert MDT - Visit Plan Frequency: 2-3x /Week Duration: 4-6 Weeks Plan: LUMBAR US, IF-ESTIM WITH MH OR CP, POSTURE CORRECTION/STRENGTHENING, INSTRUCTION IN APPROPRIATE BODY MECHANICS AND ACTIVITY MODIFICATIONS. DLS STARTING WITH A NEUTRAL SPINE PROGRESSING ROM TOLERATED. KATINA LE ROM, STRETCHING AND STRENGTHENING. HEP INSTRUCTION. *MINIMAL LIFTING > 10 LBS, BENDING, PUSHING, PULLING, TWISTING AND OVER HEAD EXTENSION FOR 4-6 WEEKS. 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 Disability: NO. Present symptoms: CURRENTLY NO LOW BACK PAIN. HAVING INTERMITTENT EXTREME LEFT BUTTOCK PAIN. NO RIGHT LE SX'S. NO NUMBNESS OR TINGLING. Present since: ABOUT 4 WEEKS AGO LOW BACK ACHE STARTED AND WENT TO THE [facility]. LOW BACK ACHE WENT AWAY THEN ABOUT 2 WEEKS AGO LEFT BUTTOCK PAIN STARTED. Pain Scale: WORST 9-10/10 BUT BRIEF (CAN GET OUT OF IT). LEAST 0/10. Currently: 0/10. Commenced as a result of: NO APPARENT REASON. Symptoms at onset: LOW BACK ACHE. Worse: RISING FROM SITTING, SITTING, TRANSITION STAND TO SIT, TRYING TO PUT LEFT SHOE AND SOCK ON. GETTING IN/OUT OF THE CAR IS HORRIBLE. Better: STANDING. LYING ON THE FLOOR ON BACK. HASN'T TRIED LYING PRONE. SLEEPS ON SIDE. Disturbed sleep: NO. Previous history/Previous treatment: THROW BACK OUT AT AGE 15. EPISODIC LBP SINCE BUT RARE. ABOUT THE LAST 6 YEARS MORE BACK ISSUES. HAS EVEN THROWN BACK OUT PICKING UP A PIECE OF PAPER. NO PT. NO BACK SURGERY. NO MADHAVI'S. HAS MAINLY ONLY SEEN CHIROPRACTOR OFF AND ON NEEDED FOR BACK FOR ABOUT 6 YEARS. HAS ALWAYS HELPED IN THE PAST. TENS USE TO HELP BUT NOT THIS BUTTOCK PAIN. DOES NOT HAVE HOME TENS JUST GETS IT AT THE [facility]. Treatment this episode: CHIROPRACTOR, MALOXACAM, STEROID. JUST STARTED MEDS YESTERDAY. GOING TO HOLD GOING TO [facility] FOR A FEW WEEKS WHILE TRYING PT NOW AND CHIROPRACTOR IN AGREEMENT. Coughing/sneezing/straining: POSITIVE. Gait: DIFFICULTY INITIATING GAIT AFTER SITTING BUT THEN NORMAL. Difficulty initiating urinatin: NOTHING NEW. Accidents: NO. Unexplained weight loss: NO. Imaging: NONE. PMH: HTN, HERNIA, SARCOIDOSIS, ASTHMA. Recent major surgery: KATINA SHOULDER AND KATINA ELBOW SX'S. - Objective Sitting/Standing Posture: PATIENT PREFERRED NOT TO SIT DURING MOST OF SESSION. STANDING POSTURE IS FAIR. INCREASED KYPHOSIS. Lordosis: REDUCED. Lateral shift: NO. Relevant shift: N/A. Active Correction of posture: NE. Other Observations: INDEP GAIT AND GOOD STANDING TOLERANCE. Motor deficit: RIGHT LE: 5/5 EXCEPT HIP 4/5. LLE: HIP 4-/5, KNEE 4-/5, ANKLE 5/5. MMT'ING APPEARS PAIN LIMITED. Sensory deficit: KATINA LE LIGHT TOUCH SENSATION INTACT AND SYMMETRICAL. ROM deficit: TIGHT KATINA HS'S. PATIENT UNABLE TO TOLERATE OTHER TESTING. Reflexes: UNABLE TO ELICIT KATINA LE'S. Dural Signs: POSITIVE KATINA LE'S. Lumbar mvmt loss: flex - MOD. ext - MOD. R SG - MIN. L SG - MIN. FLEX AND EXT TESTING PRODUCES BRIEF LEFT BUTTOCK PAIN. KATINA SG TESTING HAS NO EFFECT. Core strength: FAIR. Palpation: NO. OTHER: PATIENT ABLE TO HEEL WALK AND TOE WALK. TREATMENT: NEUROMUSCULAR REEDUCATION - RETRAINING OF MVMT AND POSTURE FOR SITTING, LYING AND STANDING ACTIVITIES. - Goals Goal 1:: DECREASE C/O LLE SX'S Goal Time Frame: 4-6 Weeks Goal 2:: IMPROVE SITTING, RISING FROM SITTING, TRANSFER, ADL, WORK AND RECREATIONAL FUNCTION Goal Time Frame: 4-6 Weeks Goal 3:: INSTRUCT IN PROPHYLAXIS Goal Time Frame: 4-6 Weeks - Anticipated Interventions Patient/Client Instruction: Educate patient on: Condition, Plan of Care, Risk Factors, Benefits of Fitness Program For the Purpose of:: To improve self management Therapeutic Exercise to Include: Strength training, Body mechanics, Postural training, Flexibilty training, Neuromotor development, Dynamic Lumbar Stabilization For the Purpose of:: To decrease pain, To increase ROM, To improve muscle performance and motor function, To increase tolerance to activity/condition/position, To improve ability of physical actions for home/community/work/leisure TENS: Yes IF ES: Yes Cryotherapy (ice pack, ice massage): Yes Thermo therapy (hot pack): Yes Ultrasound (thermal/non thermal): Yes For the Purpose of:: To decrease pain, To decrease swelling/inflammation, To improve nutrient delivery to tissue Thank you for the opportunity to evaluate your patient. For Medicare and Medicare HMO plans, please review the plan of care and approve it. It will need to be FAXED BACK to us at [phone] for Medicare purposes. For Medicare only, by signing this I certify the plan of care. Please let me know if there are questions or concerns regarding this plan of care. Physician Signature: Date:
--- NOTE | 2020-07-01 10:14 | HP.PTREVAL ---
Dr. Daniel Jimenez, DO, It has been my pleasure to treat CELIA CANTRELL over the last 10 visits for LEFT LUMBAR RADICULOPATHY. Please see the progress note below for an update on the physical therapy plan of care! Subjective: PATIENT REPORTS IT WAS VERY PAINFUL WHEN DR BOWEN EXAMINED HIM YESTERDAY AND PUSHED ON HIS BACK. MADHAVI PENDING. FEELING A LITTLE WORSE TODAY. PATIENT REPROTS THE ELECTRICAL STIM REALLY RELAXES HIM AND HE IS THANKFUL FOR THAT. HAS BEEN TRYING TO DO THE HOME EX'S BUT SOMETIMES THEY INCREASE HIS PAIN. Objective/Function: PATIENT IS NOT RESPONDING TO PT. INSTRUCTED PATIENT TO CONTINUE WITH HEP ONLY TOLERATED AND CONTINUE EX/ACTIVITIES IN COMFORTABLE ROM ONLY. Plan Plan: HOLD PT PENDING INJECTION. PATIENT IS AGREEABLE. Goals Goal 1:: DECREASE C/O LLE SX'S Goal Time Frame: 4-6 Weeks Goal Progress: Not Progressing Goal 2:: IMPROVE SITTING, RISING FROM SITTING, TRANSFER, ADL, WORK AND RECREATIONAL FUNCTION Goal Time Frame: 4-6 Weeks Goal Progress: Not Progressing Goal 3:: INSTRUCT IN PROPHYLAXIS Goal Time Frame: 4-6 Weeks Goal Progress: Not Progressing Anticipated Interventions Patient/Client Instruction: Educate patient on: Condition, Plan of Care, Risk Factors, Benefits of Fitness Program For the Purpose of:: To improve self management Therapeutic Exercise to Include: Strength training, Body mechanics, Postural training, Flexibilty training, Neuromotor development, Dynamic Lumbar Stabilization For the Purpose of:: To decrease pain, To increase ROM, To improve muscle performance and motor function, To increase tolerance to activity/condition/position, To improve ability of physical actions for home/community/work/leisure TENS: Yes IF ES: Yes Cryotherapy (ice pack, ice massage): Yes Thermo therapy (hot pack): Yes Ultrasound (thermal/non thermal): Yes For the Purpose of:: To decrease pain, To decrease swelling/inflammation, To improve nutrient delivery to tissue Please do not hesitate to contact me at [phone] by phone or if you have questions or concerns regarding this new plan of care! Sincerely, Rosa Isela Blackwell, PT, Cert MDT
--- NOTE | 2020-10-03 09:54 | HP.PT.NRP ---
CELIA CANTRELL was seen in my office for initial evaluation on 06/09/20. The following Plan of Care was established for this patient: Initial Frequency: 2-3x /Week Initial Duration: 4-6 Weeks Patient/Client Instruction: Educate patient on: Condition, Plan of Care, Risk Factors, Benefits of Fitness Program For the Purpose of:: To improve self management Therapeutic Exercise to Include: Strength training, Body mechanics, Postural training, Flexibilty training, Neuromotor development, Dynamic Lumbar Stabilization For the Purpose of:: To decrease pain, To increase ROM, To improve muscle performance and motor function, To increase tolerance to activity/condition/position, To improve ability of physical actions for home/community/work/leisure TENS: Yes IF ES: Yes Cryotherapy (ice pack, ice massage): Yes Thermo therapy (hot pack): Yes Ultrasound (thermal/non thermal): Yes For the Purpose of:: To decrease pain, To decrease swelling/inflammation, To improve nutrient delivery to tissue This patient was last seen in our office 07/01/20. Pertinent comments regarding their Physical therapy will appear below: This patient has not returned to Physical Therapy and is appropriate to return to MD for further follow-up as needed. At this point I will be discontinuing this patient from physical therapy. I would be happy to see this patient again in the future if found appropriate by the physician. Thank you! Rosa Isela Blackwell PT, Cert MDT
== END 2020-07-01 19:00 | disposition home or self-care (01) ==
LOC: PT 08:30
PROVIDERS: PCP Family Medicine; Referring Provider Family Medicine; Visit Provider Family Medicine
DX: M54.16 Radiculopathy, lumbar region (principal)
CPT/HCPCS: 97014; 97035; 97110; 97112; 97162; 97530; G0283

== ENCOUNTER 2020-07-22 23:49 | Observation (INO) | payer BC, OTHER, SELFPAY ==
[2020-07-22 23:50] VITALS: BP 162/110; PULSE 103; RESP 14; TEMP 36.7; O2SAT 97; BMI 33.7
--- NOTE | 2020-07-23 00:28 | CT_ITS ---
STUDY: CT LUMBAR SPINE WITHOUT CONTRAST REASON FOR EXAM: Male, 49 years old. LOW BACK PAIN 2 DAYS S/P CAUDAL BLOCK. R/O HEMATOMA RADIATION DOSAGE (If Supplied By Facility): CTDIvol = ( 16.44 ) mGy, DLP = ( 559.95 ) mGycm TECHNIQUE: The patient was scanned in a multi detector CT scanner. High resolution transaxial imaging was performed. Images were obtained from T11-12 to proximal coccyx. Sagittal and coronal images were reconstructed. Individualized dose optimization techniques were used for this CT. COMPARISON: MRI 05/18/2020. FINDINGS: Normal lumbar lordosis. There is no substantial scoliosis. Normal vertebrae of the lumbar spine. L1-2: Normal endplates. Normal disc height and morphology. Normal bilateral facet joints. Normal central canal and bilateral lateral recesses. Normal bilateral intervertebral neural foramina. L2-3: Normal endplates. Normal disc height and morphology. Normal bilateral facet joints. Normal central canal and bilateral lateral recesses. Normal bilateral intervertebral neural foramina. L3-4: Spondylosis. Broad posterior disc protrusion. Mild thickening of ligamenta flava.. Normal bilateral facet joints. Normal central canal. Mild narrowing bilaterally lateral recesses. Moderate narrowing bilateral intervertebral neural foramina. L4-5: Spondylosis. Broad posterior disc protrusion. Mild degenerative changes right facet joint with thickening of bilateral ligamenta flava. Normal central canal. Moderate narrowing bilateral lateral recesses. Mild narrowing bilateral intervertebral neural foramina. L5-S1: Spondylosis. Vacuum phenomenon in the disc space. Broad posterior disc protrusion with overlying focal left posterior paracentral disc protrusion. Degenerative changes bilateral facet joints with thickening of ligamenta flava. Normal central canal. Normal right and moderate narrowing left lateral recesses. Moderate narrowing right and mild narrowing left intervertebral neural foramina. Normal visualized paraspinous soft tissue structures. CT/Spine Lumbar without Contrast IMPRESSION: Multilevel degenerative changes, as described above. No demonstrated fracture or subluxation. No demonstrated epidural hematoma. Electronically Signed: Pj Rojas MD at 2:04 EDT , Service support ,
[2020-07-23] MEDS: Ondansetron 4 MG/2 ML Vial IV (00:48)
[2020-07-23] MEDS: HYDROmorphone 1 MG/ML Syringe IV (00:49)
[2020-07-23 00:53] LABS: Absolute Lymphocyte Count 2.29 X10^3/uL (0.83-4.51); Absolute Neutrophil Count 4.7 X10^3/uL (2.0-7.7); Basophil# 0.05 X10^3/uL; Basophil% 0.6 % (0-1); Eosinophil# 0.26 X10^3/uL; Eosinophils% 3.2 % (0-5); Hematocrit 43.3 % (40-54); Hemoglobin 13.9 g/dL (13.0-16.5); Lymphocyte # 2.29 X10^3/ul (4.0); Lymphocyte % 27.8 % (19-41); Mean Corp Hgb Conc 32.1 g/dL (32-36); Mean Corpuscular Hgb 27.4 pg (27.0-32.0); Mean Corpuscular Volume 85.2 fL (80-94); Mean Platelet Vol. 9.9 fl (6.2-12.0); Monocyte# 0.88 X10^3/uL; Monocyte% 10.7 % (0-10); NRBC Flagged by Analyzer 0 % (0-5); Neutrophil # 4.74 X10^3/uL (2.7-7.7); Neutrophil % 57.3 % (47-70); Platelet Count 274 K/mm3 (150-450); RBC Distribution Width CV 12.3 % (11.6-14.6); RBC Distribution Width SD 37.3 fl (35.1-43.9); Red Blood Count 5.08 M/mm3 (4.6-6.2); White Blood Count 8.3 K/mm3 (4.4-11.0)
[2020-07-23 01:07] LABS: Anion Gap 4 (5-15); BUN 23 mg/dL (7-18); BUN/Creat Ratio 22.3 RATIO (10-20); Calcium,Total 8.7 mg/dL (8.5-10.1); Chloride 104 mmol/L (98-107); Creatinine, Serum 1.03 mg/dL (0.70-1.30); EST Glomerular Filtration Rate 81 mL/min (>60); Est Glom Filt Rate - Afr Amer 98 mL/min (>60); Estimated Creatinine Clearance 74.64 ml/min; Glucose 242 mg/dL (74-106); Potassium 4.3 mmol/L (3.5-5.1); Sodium Level 137 mmol/L (136-145)
[2020-07-23 01:08] LABS: Partial Thromboplast Time 31.6 Seconds (24.1-36.2)
[2020-07-23 01:31] VITALS: BP 156/108; PULSE 93; RESP 15; O2SAT 96
--- NOTE | 2020-07-23 02:49 | PCM.HP.STD ---
Problem List (1) Intractable low back pain Status: Acute History of Present Illness Date of Admission: 07/22/20 Chief Complaint: back pain The patient is a 49 year old M with a significant history sarcoidosis; and hypertension who presents to the emergency department with 3 days of excruciating lower left back pain that radiates to his left leg. His pain is excruciating and it has progressively been getting worse.. He describes his pain as dull. His pain occasionally get sharp. Also he has numbness in his left leg. His pain increases with sitting up; standing and walking. With position he has pain improves. He reported that his left leg gave up on the day of presentation. He has noticed muscle twitches in his left thigh. Of note 4 days before presentation patient had a steroid shot with Dr. Pillai. With his pain coming back he called the doctor's office and he was instructed to come today emergency department for an MRI because he may be having with cuadal hematoma. Patient reported that his symptoms started about a month to a month and a half ago. He saw a chiropractor. Also he had an MRI in June which showed disc herniation at lower lumbar vertebrae. Past Medical History Medical History: Medical History (Last Updated 07/23/20 @ 03:[address] Tanner Garcia MD) Hypertension I10 Allergies No Known Allergies Allergy (Verified 07/22/20 23:53) Home Medications: Ambulatory Orders Medication Instructions Recorded Meloxicam 15 mg PO DAILY 07/23/20 Metoprolol Succinate 50 mg PO DAILY 07/23/20 Surgical History: herniorrhaphy, tonsillectomy, - - Surgery for epicondylitis; surgery for bilateral collarbone; surgery for nerve in the elbow Smoking Status: Never smoker - *Family History Maternal History Items: - - His mother from pneumonia Paternal History Items: Hypertension Review of Systems Constitutional: Denies: Chills, Fever, Weight Change HEENT: Denies: Head Aches, Sinus Congestion, Sinus Drainage Cardiovascular: Denies: Chest Pain, Palpitations Respiratory: Denies: Cough, Shortness of breath at rest, Sputum production Gastrointestinal: Denies: Abdominal Pain, Nausea, Vomiting Genitourinary: Denies: Dysuria Musculoskeletal: Reports: Leg Pain. Denies: Joint Pain, Joint Tenderness Skin: Denies: Rash, Wounds Neurological: Reports: Focal weakness - Left leg, Numbness. Denies: Tingling Psychiatric: Denies: Anxiety, Depression, Homicidal Ideations, Suicidal Ideations Hematologic/ Lymphatic: Denies: Easy Bruising, Easy Bleeding VTE Information - Inpt Only VTE Present on Admission: No VTE Mechan Device Prophylaxis: None VTE Pharm Prophylaxis ordered?: Yes Patient Problems: Active and Suspected Problems (Last Updated 07/23/20 @ 03:[address] Tanner Garcia MD) Intractable low back pain (Acute) - Physical Exam Vitals/I&O's: Vital Signs Temp Pulse Resp BP Pulse Ox 98.1 F 93 15 156/108 H 96 07/22/20 23:50 07/23/20 01:31 07/23/20 01:31 07/23/20 01:31 07/23/20 01:31 Oxygen Delivery Method Room Air Weight: 91.8 kg Body Mass Index (BMI) 33.7 General: Alert, Oriented x3, Cooperative HEENT: Atraumatic, PERRLA, EOMI, Normocephalic Neck: Supple, No JVD, Negative Carotid Bruits Lungs: Clear to auscultation, Normal air movement, No rhonchi, No wheeze, No rales Cardiovascular: Regular rate, Normal S1, Normal S2, No murmurs Abdomen: Bowel Sounds Present, Soft, Non Tender Extremities: No edema, Capillary Refill Less than 3 Seconds Skin: No rashes, No breakdown Musculoskeletal: No Tenderness to Palpation of Joints or Extremities, - - Twitching of left thigh. Straight leg test of the left leg was positive for mild pain (patient had received morphine at emergency department). Mildly tender left lower parasternal area. Neurological: Cranial nerves II-XII grossly intact Psych/Mental Status: Normal Affect, Appropriate Laboratory Results 07/23/20 00:44: WBC 8.3, RBC 5.08, Hgb 13.9, Hct 43.3, MCV 85.2, MCH 27.4, MCHC 32.1, RDW Std Deviation 37.3, RDW Coeff of Jas 12.3, Plt Count 274, MPV 9.9, Immature Gran % (Auto) 0.400, Neut % (Auto) 57.3, Lymph % (Auto) 27.8, [place] % (Auto) 10.7 H, Eos % (Auto) 3.2, Baso % (Auto) 0.6, Absolute Neuts (auto) 4.7, Absolute Lymphs (auto) 2.29, Nucleated RBC % 0 07/23/20 00:44: Sodium 137, Potassium 4.3, Chloride 104, Carbon Dioxide 29.0, Anion Gap 4 L, BUN 23 H, Creatinine 1.03, Estim Creat Clear Calc 74.64, Est GFR (MDRD) Af Amer 98, Est GFR (MDRD) Non-Af 81, BUN/Creatinine Ratio 22.3 H, Glucose 242 H, Calcium 8.7 07/23/20 00:44: PT 13.0, INR 1.0, APTT 31.6 Assessment/Plan All Active Problems (Last Updated 07/23/20 @ 03:[address] Tanner Garcia MD) Intractable low back pain (Acute) The patient is a 49 year old M with a significant history sarcoidosis; and hypertension who presents to the emergency department with 3 days of excruciating lower left back pain that radiates to his left leg. Intractable leg pain Received Dilaudid emergency department. On home meloxicam. PRN ibuprofen and oxycodone ordered. Placed on scheduled prednisone. IV Zofran and antiemetics in place. Lumbar spine CT did not show any epidural hematoma. We will get an MRI. Hyperglycemia Patient received a steroid shot on 07/19/2020. We will get A1c. Accu-Chek QA CHS correction scale insulin. Hypertension On presentation blood pressure was now within goal Metoprolol continued PRN labetalol ordered. DVT prophylaxis with subcutaneous Lovenox. OBSV E&M: 79365 Initial observation care L3
--- NOTE | 2020-07-23 03:00 | ED.DCSUM_ITS ---
- ER Visit Summary Date of Service: 07/23/20 Chief Complaint: Back pain History of Present Illness: The patient is a [address] Jimenez and Dr. Pillai. He had a caudal injection of steroids 3 days ago. He reports that his pain was much improved for 2 days. However, his pain returned today and is much worse than it was prior to the injection. He has a sharp pain on the left of his lower back that is 10 out of 10 in severity at worst and 6 out of 10 currently. Is worsened by movement. Is relieved by standing and Tylenol. Reports that he has numbness to his left leg that is diffuse. He also has radiation of the pain to his left thigh. He has had twitching of the muscles on the medial left thigh all day. He denies any numbness in his groin. No problems with his bowels or his bladder. Patient denies any fever, chills, nausea, vomiting, or other constitutional symptoms. Physical Examination: Vitals: Stable. Afebrile. General: A&O x 3. NAD. Cardiovascular exam: Regular rate and rhythm, no murmur, rub or gallop. Respiratory exam: Clear to auscultation bilaterally. No wheezes or stridor. Abdominal exam: Soft, nontender, nondistended, normal bowel sounds. No peritoneal signs. Back: Moderate tenderness palpation to the left of the lumbar vertebrae. There is no erythema or warmth to suggest an abscess.. No point tenderness. Negative straight leg bilaterally. 5/5 DF, PF, EHL bilaterally. Normal sensation to light touch in his left foot. Decrease in station light touch that is circumferential throughout his thigh and his leg. 2+ dorsalis pedis pulse bilaterally. Extremity: No clubbing, cyanosis, or edema. Test Results: CBC shows monocytes of 11. Chem-7 shows a BUN 23 and glucose 242. Coags are normal. Clinical Impression(s) from Imaging Studies Lumbar Spine CT 07/23/20 00:28 IMPRESSION: Multilevel degenerative changes, as described above. No demonstrated fracture or subluxation. No demonstrated epidural hematoma. Electronically Signed: Pj Rojas MD at 2:04 EDT , Service support , Emergency Department Course and Treatment: Patient was given Dilaudid and Zofran IV. He reports that his pain is improved as long as he is sitting up. If he lays down his pain is severe again. I discussed the findings on the CT of the lumbar spine with the radiologist. He reports that it would show any hematoma or epidural abscess that was pressing on nerve roots. However, he states that it would not show a small hematoma. Treatment Plan: I discussed this with the patient and offered to transfer him to a tertiary care center where they could do an MRI and there is neurosurgery. He does not want to do this. He would like to stay here and have the MRI. If this shows that he has a surgical problem he understands that he will need to be transferred. Patient was discussed with Dr. Garcia. He will be admitted to the hospital for further evaluation and treatment. Disposition: Admitted in improved condition. Impression: 1. Low back pain. 2. 3-day status post caudal injection. 3. Paresthesias left leg. This note was generated with [employer] dictation software. It may contain incorrect words, spelling, and punctuation that were not noted in review of the chart prior to signing ED Disposition - Plan for ED Patient: Referrals: Daniel Jimenez DO [Primary Care Provider] -
[2020-07-23 03:14] VITALS: BP 169/117; PULSE 91; RESP 15; TEMP 36.8; O2SAT 96
[2020-07-23 03:44] VITALS: BMI 33.5
--- NOTE | 2020-07-23 04:00 | MRI_ITS ---
STUDY: MRI LUMBAR SPINE WITHOUT CONTRAST REASON FOR EXAM: Male, 49 years old. back pain,, left leg numbness/pain, steroid injection 07/19/20 TECHNIQUE: Standardized fat and water weighted pulse sequences were obtained in the sagittal and axial planes. COMPARISON: 06/17/2020 FINDINGS: Normal lumbar lordosis. There is no substantial scoliosis. Normal conus medullaris that terminates at the L1 L1-2: There is minimal disc space narrowing and endplate spondylosis. There is no significant disc herniation, central canal or foraminal stenosis. Mild facet arthropathy L2-3: There is minimal disc space narrowing and endplate spondylosis. There is no significant disc herniation, central canal or foraminal stenosis. Moderate facet arthropathy L3-4: There is mild disc space narrowing and endplates spondylosis. There is mild disc osteophyte complex and mild encephalopathy without significant central canal stenosis. There is mild right and mild left foraminal stenosis. L4-5: There is mild disc space narrowing and endplates spondylosis. There is mild disc bulge with small left paracentral protrusion with mild left lateral recess narrowing. There is no significant central canal stenosis. There is mild right and mild left foraminal status. Findings are stable since the prior examination L5-S1: There is moderate disc space narrowing and endplates spondylosis. There is a moderate disc bulge with left paracentral protrusion with severe left lateral recess narrowing and posterior displacement of the traversing S1 nerve root . There is no significant central canal stenosis. There is mild left and mild right foraminal stenosis. There is moderate facet arthropathy. Findings are stable since prior examination. Normal visualized sacral ala. MRI/Spine Lumbar (Routine) IMPRESSION: L5/S1: Stable disc protrusion with severe left lateral recess narrowing and potential impingement on the left S1 nerve root. Electronically Signed: John Hodges MD at 10:49 EDT Tel , Service support ,
[2020-07-23] MEDS: Acetaminophen 325 MG Tablet 650 MG PO (04:16)
[2020-07-23] MEDS: predniSONE 20 MG Tablet PO (04:17)
[2020-07-23 04:20] VITALS: BP 153/101; PULSE 87; RESP 18; TEMP 36.6; O2SAT 97
[2020-07-23] MEDS: oxyCODONE 5 MG Tablet PO ×2 (05:55→10:59)
[2020-07-23] MEDS: Insulin Lispro 100 UNIT/ML INSULN.PEN SC ×2 (06:47→11:04)
[2020-07-23 06:51] LABS: Bedside Glucose 214 mg/dL (70-110)
[2020-07-23 08:13] VITALS: BP 151/104; PULSE 87; RESP 16; TEMP 36.5; O2SAT 97
[2020-07-23 09:08] VITALS: PULSE 87
[2020-07-23] MEDS: Metoprolol(XL)Succ 50 MG Tablet PO (09:08)
[2020-07-23 09:46] LABS: Hemoglobin A1c 8.1 % (3.8-5.6)
--- NOTE | 2020-07-23 09:57 | NURSING ---
pt to mri
[2020-07-23] MEDS: Ibuprofen 400 MG Tablet PO (11:00)
[2020-07-23 11:11] LABS: Bedside Glucose 214 mg/dL (70-110)
[2020-07-23 11:18] VITALS: BP 162/116; PULSE 104; RESP 16; TEMP 36.7; O2SAT 95
--- NOTE | 2020-07-23 13:06 | DCINST_ITS ---
- Discharge Diagnoses Current Active Problems: Current Active and Chronic Problems (Last Updated 07/23/20 @ 03:[address] Tanner Garcia MD) Intractable low back pain (Acute) You will use the following diet at home:: No restrictions Your food should be the consistency of: Regular Discharge Activity: - - do lift anything heavier than 20 pounds. Perform extention exercises at least once daily. When sitting, keep a small pillow or rolled up towel behing your low back. Allergies/Adverse Reactions: Allergies No Known Allergies Allergy (Verified 07/22/20 23:53) Medications to take at Discharge Acetaminophen [Tylenol Tablet] 1,000 mg PO Q8H PRN #1 tablet 07/23/20 Ibuprofen 800 mg PO TID #1 tablet 07/23/20 Metoprolol Succinate 50 mg PO DAILY 07/23/20 Omeprazole 20 mg PO DAILY #14 capsule. 07/23/20 Oxycodone [Oxyir] 5 mg PO Q4H PRN 3 Days #18 tablet 07/23/20 Prednisone 10 mg PO DAILY #30 tab 07/23/20 The following prescriptions were given: Ibuprofen 800 mg PO TID #1 tablet Omeprazole 20 mg PO DAILY #14 capsule. Transmission Status: Pending to [facility]/pharmacy #[id number] Oxycodone [Oxyir] 5 mg PO Q4H PRN 3 Days #18 tablet PRN Reason: Pain Score 6-10/10 Transmission Status: Received by [facility]/pharmacy #[id number] Prednisone 10 mg PO DAILY #30 tab Transmission Status: Pending to [facility]pharmacy [id number] Acetaminophen [Tylenol Tablet] 1,000 mg PO Q8H PRN #1 tablet PRN Reason: Pain Score 1-10/Temp > 100.7 F Orders to be completed after discharge: Physical Therapy Evaluation Location: None Selected Primary Care Physician: Daniel Jimenez DO [Primary Care Provider] - Within 1 Week Test Results: Test results from this visit will be discussed in further detail at your follow- up appointment, if applicable. Please Follow Up With: [facility] - call for appointment. When: 2-4 weeks Proposed Discharge Date: 07/23/20
--- NOTE | 2020-07-23 13:09 | PCM.DC.SUM ---
Discharge Date and Diagnosis - Problem List Patient Problems: Active and Suspected Problems (Last Updated 07/23/20 @ 03:[address] Tanner Garcia MD) Intractable low back pain (Acute) Date of Admission: 07/22/20 Date of Discharge: 07/23/20 - Primary Discharge Diagnosis Acute Problems: Active Problems (Last Updated 07/23/20 @ 03:[address] Tanner Garcia MD) Intractable low back pain (Acute) Hospital Course and Treatment Imaging Results: Clinical Impression(s) from Imaging Studies Lumbar Spine CT 07/23/20 00:28 IMPRESSION: Multilevel degenerative changes, as described above. No demonstrated fracture or subluxation. No demonstrated epidural hematoma. Electronically Signed: Pj Rojas MD at 2:04 EDT , Service support , Lumbar Spine MRI 07/23/20 04:00 IMPRESSION: L5/S1: Stable disc protrusion with severe left lateral recess narrowing and potential impingement on the left S1 nerve root. Electronically Signed: John Hodges MD at 10:49 EDT Tel , Service support , Operations: None Procedures: None Summary of Care Provided: The patient is a 49 year old M with back pain and pain in. She is resolving her left lower extremity. Several days prior, patient had an epidural injection for his a known herniated disc but then afterwards, patient was feeling much worse with the after mentioned symptoms. Concern was for an epidural hematoma given the epidural injection the patient had received. Patient underwent an MRI today that did not show an epidural hematoma but showed stable disc protrusion of L5 and S1 with severe lateral recess narrowing and potential impingement of the left S1 nerve root. I discussed findings with patient and his stated that the initial recommendation is going to be conservative measures including pain control with analgesia plus steroids. Patient also to perform exercises at home follow-up physical therapy. Patient inquired about spine surgery. Explained the patient that that is a last resort. I did offer to lift centrally transfer the patient to a facility where they have spinal neurosurgery but they declined. Patient does not have any clinical evidence of cauda equina at this time. So he would prefer to go home which I feel is reasonable and but did explain to patient if symptoms do get worse or he has issues in regards to urinary bowel incontinence to let him know right away or come back into the emergency room as it could be an indication of a surgical emergency. Patient states that he is interested in following up with Dr. Rivera at [facility]. Stated that he can do so in the coming weeks. [] Patient Problems: Active and Suspected Problems (Last Updated 07/23/20 @ 03:[address] Tanner Garcia MD) Intractable low back pain (Acute) - Physical Exam Vitals/I&O's: Vital Signs Temp Pulse Resp BP Pulse Ox 36.7 C 104 H 16 162/116 H 95 07/23/20 11:18 07/23/20 11:18 07/23/20 11:18 07/23/20 11:18 07/23/20 11:18 Oxygen Delivery Method Room Air Weight: 91.2 kg Body Mass Index (BMI) 33.5 Intake and Output for Last 24 Hours 07/21/20 07/22/20 07/23/20 23:59 23:59 23:59 Intake Total 400 / 400 Balance 400 / 400 General: Alert, No apparent distress HEENT: Atraumatic, Normocephalic Musculoskeletal: No Tenderness to Palpation of Joints or Extremities, No Muscle Wasting Neurological: Motor Exam 5/5 strength throughout Laboratory Results 07/23/20 00:44: WBC 8.3, RBC 5.08, Hgb 13.9, Hct 43.3, MCV 85.2, MCH 27.4, MCHC 32.1, RDW Std Deviation 37.3, RDW Coeff of Jas 12.3, Plt Count 274, MPV 9.9, Immature Gran % (Auto) 0.400, Neut % (Auto) 57.3, Lymph % (Auto) 27.8, [place] % (Auto) 10.7 H, Eos % (Auto) 3.2, Baso % (Auto) 0.6, Absolute Neuts (auto) 4.7, Absolute Lymphs (auto) 2.29, Nucleated RBC % 0 07/23/20 00:44: Sodium 137, Potassium 4.3, Chloride 104, Carbon Dioxide 29.0, Anion Gap 4 L, BUN 23 H, Creatinine 1.03, Estim Creat Clear Calc 74.64, Est GFR (MDRD) Af Amer 98, Est GFR (MDRD) Non-Af 81, BUN/Creatinine Ratio 22.3 H, Glucose 242 H, Calcium 8.7 07/23/20 00:44: PT 13.0, INR 1.0, APTT 31.6 07/23/20 00:44: Hemoglobin A1c 8.1 H 07/23/20 06:43: POC Glucose 214 H 07/23/20 11:03: POC Glucose 214 H Current Medications Acetaminophen (Tylenol) 650 mg PO Q6H PRN PRN PRN Reason: Pain Score 1-10/Temp > 100.7 F Last Admin: 07/23/20 04:16 Dose: 650 mg Documented by: Dextrose (D50w Syringe) 0 gm IV X1 PRN; Protocol PRN Reason: Hypoglycemia Glucagon () 1 mg IM .X1 PRN PRN Reason: Hypoglycemia Ibuprofen (Motrin) 400 mg PO Q4H PRN PRN PRN Reason: Pain Score 4-5/Temp > 100.7 F Last Admin: 07/23/20 11:00 Dose: 400 mg Documented by: Insulin Human Lispro (Humalog Kwikpen (Bkc)) 0 unit SC [facility]; Protocol Last Admin: 07/23/20 11:04 Dose: 2 unit Documented by: Labetalol HCl (Trandate) 10 mg IV Q6H PRN PRN PRN Reason: SBP > 160 Metoprolol Succinate (Toprol Xl (Beta Mavis)) 50 mg PO DAILY [facility] Last Admin: 07/23/20 09:08 Dose: 50 mg Documented by: Nutritional Formula (Lactose Free) (Ensure Enlive) 120 ml PO 4X/DAY [facility] Last Admin: 07/23/20 09:08 Dose: 120 ml Documented by: Ondansetron HCl (Zofran) 4 mg IV Q8H PRN PRN PRN Reason: NAUSEA/VOMITING Oxycodone HCl (Oxyir) 5 mg PO Q4H PRN PRN PRN Reason: Pain Score 6-10/10 Last Admin: 07/23/20 10:59 Dose: 5 mg Documented by: [facility] () [facility] Last Admin: 07/23/20 04:17 Dose: 20 mg Documented by: Senna/Docusate Sodium (Senokot-S, Lacey-Colace) 2 tablet PO BID PRN PRN PRN Reason: Constipation Sodium Chloride () 10 - 40 ml IV UD PRN PRN Reason: SALINE FLUSH Discharge Diet: No Restrictions Discharge Activity: - - do lift anything heavier than 20 pounds. Perform extention exercises at least once daily. When sitting, keep a small pillow or rolled up towel behing your low back. Home Medications: Medications to take at Discharge Acetaminophen [Tylenol Tablet] 1,000 mg PO Q8H PRN #1 tablet 07/23/20 Ibuprofen 800 mg PO TID #1 tablet 07/23/20 Metoprolol Succinate 50 mg PO DAILY 07/23/20 Omeprazole 20 mg PO DAILY #14 capsule. 07/23/20 Oxycodone [Oxyir] 5 mg PO Q4H PRN 3 Days #18 tablet 07/23/20 Prednisone 10 mg PO DAILY #30 tab 07/23/20 Following Prescriptions Were Given to Patient: Ibuprofen 800 mg PO TID #1 tablet Omeprazole 20 mg PO DAILY #14 capsule. Transmission Status: Pending to [facility]/pharmacy #[id number] Oxycodone [Oxyir] 5 mg PO Q4H PRN 3 Days #18 tablet PRN Reason: Pain Score 6-10/10 Transmission Status: Received by [id number] Prednisone 10 mg PO DAILY #30 tab Transmission Status: Pending to [id number] Acetaminophen [Tylenol Tablet] 1,000 mg PO Q8H PRN #1 tablet PRN Reason: Pain Score 1-10/Temp > 100.7 F Other Amb Orders: Physical Therapy Evaluation Location: None Selected Primary Care Physician: Daniel Jimenez DO [Primary Care Provider] - Within 1 Week Please Follow Up With: [facility] - call for appointment. When: 2-4 weeks Disposition: Home Minutes spent on discharge:: 35 Patient Condition:: Good Medical Necessity - Tobacco Use Smoking Status: Never smoker Meaningful Use Info Meaningful Use Diagnoses (Choose all that apply): None applicable OBSV E&M: 99094 Observation care discharge
== END 2020-07-23 14:40 | disposition home or self-care (01) ==
LOC: ED 07-23 00:49 → MS3 07-23 03:35
PROVIDERS: Admitting Provider Hospitalist; Emergency Provider Emergency Medicine; PCP Family Medicine
DX: M51.26 Other intervertebral disc displacement, lumbar region (principal); I10 Essential (primary) hypertension; Z79.899 Other long term (current) drug therapy; R20.0 Anesthesia of skin; R20.2 Paresthesia of skin
CPT/HCPCS: 72131; 72148; 80048; 82962; 83036; 85025; 85610; 85730; 96374; 96375; 97161; 99218; 99284; G0378; J2405

== ENCOUNTER → 2020-10-20 15:30 | Outpatient (CLI) | payer BC, OTHER, SELFPAY ==
[2020-07-23 03:44] VITALS: BMI 33.5
[2020-10-20 16:49] LABS: Probe Check PASS; Specimen Processing Control PASS
== END ==
PROVIDERS: Visit Provider Family Medicine
DX: Z20.828 Contact with and (suspected) exposure to other viral communicable diseases (principal)
CPT/HCPCS: 87635; U0002

== ENCOUNTER → 2021-04-12 07:53 | Outpatient (CLI) | payer OTHER, SELFPAY ==
[2020-07-23 03:44] VITALS: BMI 33.5
--- NOTE | 2021-04-12 08:07 | MRI_ITS ---
STUDY: MRI LUMBAR SPINE WITHOUT CONTRAST REASON FOR EXAM: Male, 50 years old. R LUMBAR RADICULOPATHY TECHNIQUE: Standardized fat and water weighted pulse sequences were obtained in the sagittal and axial planes. COMPARISON: None FINDINGS: T12-L1: Normal endplates. Normal disc height, hydration and morphology. Normal bilateral facet joints. Normal central canal and bilateral lateral recesses. Normal bilateral intervertebral neural foramina. Normal lumbar lordosis. There is no substantial scoliosis. Normal conus medullaris that terminates at the L1. L1-2: Normal endplates. Normal disc height, hydration and morphology. Normal bilateral facet joints. Normal central canal and bilateral lateral recesses. Normal bilateral intervertebral neural foramina. L2-3: Mild bilateral facet hypertrophy and ligament flavum hypertrophy. No change in the mild broad disc protrusion produces mild spinal stenosis and mild bilateral neural foraminal stenosis. L3-4: Mild bilateral facet hypertrophy and ligament flavum hypertrophy. No change in the mild broad disc protrusion asymmetric to left produces mild spinal stenosis with mild bilateral lateral recess stenosis, mild right neural foraminal stenosis and moderate left neural foraminal stenosis. L4-5: Status post left laminectomy. Persistent or recurrent of the moderate size left paracentral disc protrusion produces mild spinal stenosis, mild right lateral recess stenosis, moderate left lateral recess stenosis with abutment of the left L5 nerve root and mild bilateral neural foraminal stenosis per L5-S1: Status post left laminectomy. Interval resection of the left paracentral disc protrusion with a mild broad disc protrusion which produces mild spinal stenosis and mild bilateral neural foraminal stenosis. Associated Modic type II endplate changes. Normal visualized sacral ala. Normal visualized paraspinous soft tissue structures. MRI/Spine Lumbar (Routine) IMPRESSION: Postsurgical changes and degenerative disc disease as described above Electronically Signed: Mauro Mccullough MD at 9:47 EDT Tel , Service support ,
== END ==
PROVIDERS: PCP Family Medicine; Referring Provider Family Medicine; Visit Provider Family Medicine
DX: M54.16 Radiculopathy, lumbar region (principal)
CPT/HCPCS: 72148

== ENCOUNTER → 2021-06-29 12:14 | Outpatient (CLI) | payer OTHER, SELFPAY ==
[2020-07-23 03:44] VITALS: BMI 33.5
[2021-06-29 12:25] LABS: Absolute Lymphocyte Count 0.83 X10^3/uL (0.83-4.51); Absolute Neutrophil Count 7.2 X10^3/uL (2.0-7.7); Basophil# 0.02 X10^3/uL; Basophil% 0.2 % (0-1); Eosinophil# 0.01 X10^3/uL; Eosinophils% 0.1 % (0-5); Hemoglobin 13.5 g/dL (13.0-16.5); Lymphocyte # 0.83 X10^3/ul (0.83-4.51); Mean Corp Hgb Conc 32.1 g/dL (32-36); Mean Corpuscular Hgb 27.2 pg (27.0-32.0); Mean Corpuscular Volume 84.7 fL (80-94); Mean Platelet Vol. 10.2 fl (6.2-12.0); Monocyte# 0.22 X10^3/uL; Monocyte% 2.6 % (0-10); NRBC Flagged by Analyzer 0 % (0-5); Neutrophil # 7.16 X10^3/uL (2.7-7.7); Neutrophil % 86.3 % (47-70); Platelet Count 244 K/mm3 (150-450); RBC Distribution Width CV 12.9 % (11.6-14.6); RBC Distribution Width SD 39.5 fl (35.1-43.9); Red Blood Count 4.96 M/mm3 (4.6-6.2); White Blood Count 8.3 K/mm3 (4.4-11.0)
[2021-06-29 12:28] LABS: Erythrocyte Sedimentation Rate 21 mm/hr (0-20)
[2021-06-29 12:42] LABS: Uric Acid 3.3 mg/dL (3.5-7.2)
== END ==
PROVIDERS: PCP Family Medicine; Visit Provider Family Medicine
DX: M25.531 Pain in right wrist (principal)
CPT/HCPCS: 84550; 85025; 85652; 86140

== ENCOUNTER → 2021-11-30 17:46 | Outpatient (CLI) | payer OTHER, SELFPAY | PROVIDERS: PCP Family Medicine; Visit Provider Family Medicine | DX: U07.1 COVID-19 (principal) | CPT/HCPCS: 87635; U0003; U0005 ==

== ENCOUNTER 2022-01-07 09:19 | Emergency (ER) | payer BC, OTHER, SELFPAY ==
[2022-01-07 09:21] VITALS: BP 152/119; PULSE 117; RESP 17; TEMP 35.6; O2SAT 100; BMI 33.0
--- NOTE | 2022-01-07 10:10 | EDS_ITS ---
HPI History of Present Illness Chief Complaint: Fall Detail of Chief Complaint: Fall down steps with injury to left chest Informant: patient Narrative Narrative: Patient presents to the emergency department after sustaining a fall around 2 AM. Patient states that he thought he was going into the bathroom and opened the basement steps and fell down about 8 carpeted steps to the landing. Patient complains of pain with deep breath on the left ribs and feels like he cannot get a full breath and at times. Patient also complains of some soreness in his neck. He denies headache or loss of consciousness. He denies abdominal pain. [facility] Medical History (Updated 01/07/22 @ 11:[address] Tamara Kaye, DO) Hypertension Home Medications acetaminophen 1,000 mg PO Q8H PRN #1 tab 07/23/20 [Rx Last Taken Unknown] nabumetone 500 mg PO DAILY 12/06/21 [History Last Taken Unknown] prednisone 20 mg PO DAILY 12/06/21 [History Last Taken Unknown] hydrocodone-acetaminophen 1 tab PO Q4H PRN PRN 2 Days #15 tablet 01/07/22 [Rx Last Taken Unknown] Allergy/AdvReac Type Severity Reaction Status Date / Time No Known Allergies Allergy Verified 01/07/22 09:20 Social History Smoking Status: Never smoker [facility] ED Constitutional Constitutional ED: Reports systems reviewed and no addt'l complaints, except as documented; Denies body ache(s), change in weight or chills Eyes Eyes: Denies acute decrease in peripheral vision, change in vision, double vision or loss of vision ENT ENT ED: Reports none; Denies ear pain, lip swelling, loss taste/smell, neck pain, otalgia or sore throat Cardiovascular Cardiovascular: Reports none and chest pain; Denies abdominal pain, chest pain with activity, leg edema, lightheadedness, palpitations, rapid heart rate or syncope Respiratory/Chest Respiratory/Chest: Reports none and dyspnea; Denies change in mental status, dry cough, hemoptysis, shortness of breath at rest or shortness of breath with exertion Gastrointestinal Gastrointestinal: Reports none; Denies abdominal pain, change in stool character, diarrhea, hematemesis, hematochezia, melena, rectal bleeding or vomiting Genitourinary Genitourinary ED: Reports none; Denies abdominal discomfort, anuria, dysuria, genital pain or polyuria Musculoskeletal Musculoskeletal: Reports none and neck pain; Denies arthralgias, back pain, difficulty walking, extremity pain, muscle weakness or myalgias Integumentary Reports none; Denies abscess or rash Neurologic Neurologic: Reports none; Denies abnormal gait, confusion, focal weakness, frequent falls, headache(s), loss of vision, numbness, paresthesias, radicular pain, vertigo or weakness Psychiatric Psychiatric: Reports systems reviewed and no addt'l complaints, except as documented and none; Denies behavioral changes, confusion, difficulty concentrating, hallucinations, suicidal ideation, tactile hallucinations or visual hallucinations Endocrine Endocrinology: Denies none, cold intolerance, excessive sweating, fatigue or heat intolerance Hematologic/Lymphatic Hematologic/Lymphatic: Reports none; Denies anemia, easy bleeding or easy bruising Allergic/Immunologic Allergic/Immunologic ED: Denies as per HPI, none, lip swelling, mouth swelling, throat swelling, tongue swelling or hives EXAM Physical Exam Const Vital Signs: 01/07/22 09:21 01/07/22 11:25 Temperature 96.0 F L Temperature Source Temporal Pulse Rate 117 H Respiratory Rate 17 Respiratory Effort Normal Non-Labored Respiratory Depth Normal Respiratory Pattern Normal Blood Pressure 152/119 H Blood Pressure Mean 130 Pulse Ox 100 Oxygen Delivery Method Room Air Positive well nourished and well developed General Appearance ED: well developed and NAD HEENT Reports TM's clear and moist mucous membranes normocephalic and atraumatic; Negative for trauma or tenderness Tympanic Membrane ED: Yes TM's clear Eyes PERRL and EOMs intact bilaterally General Eye ED: Negative for pale conjunctiva or scleral icterus Neck no lymphadenopathy, supple and no JVD Neck Narrative: Mild diffuse tenderness over the C-spine. No bony step-offs noted. Normal strength in the upper extremities. General: tenderness Chest Wall inspection of chest normal Chest Narrative: Patient has tenderness palpation over the left anterior chest wall that reproduces pain. There is no crepitus or subcu edema noted. There is no ecchymosis or bruising noted. Chest: Negative for tenderness Resp normal respiratory effort and clear to auscultation bilaterally Effort and Inspection: pain with movement; Negative for respiratory distress Auscultation: Negative for rhonchi, wheezes or diminished lung sounds Cardio regular rate, regular rhythm, S1 normal heart sound, S2 normal heart sound and no murmurs Peripheral Pulses: pulses 2+ throughout GI normal to inspection, nondistended, normoactive bowel sounds, soft to palpation, non-tender, non-distended and no masses Back/Spine no CVA tenderness and no thoracic nor lumbar tenderness Extremity normal to inspection General Extremety ED: Negative for edema General Extremity: Negative for edema Neuro oriented x3, CN's II-XII intact bilaterally, no sensory deficits noted and gait normal Sensorium / Orientation: awake, alert, oriented to person, oriented to place and oriented to time Motor Exam: strength 5/5 throughout and strength abnormal Psych mental status grossly normal Skin no rashes or lesions noted and no wounds MDM MDM MDM Narrative Medical decision making narrative: Patient had x-rays of the C-spine as well as the left ribs and chest x-ray. No fractures noted in the C-spine or the ribs. There is no pneumothorax. At this point patient was given a prescription for [place] and given 1 dose in the emergency department. Patient will be given note for off work for tomorrow. Patient advised to return if worsening pain, increasing shortness of breath, or conditions worsen anyway. Radiography Diagnostic Testing: Clinical Impression(s) from Imaging Studies Cervical Spine X-Ray 01/07/22 10:35 IMPRESSION: Normal x-ray examination of the visualized cervical spine. Electronically Signed: Mauro Mccullough MD at 11:24 EST Reading Location ID and State: [employer] Tel , Service support , Ribs w/Chest X-Ray 01/07/22 10:35 IMPRESSION: RIBS: Normal x-ray examination of the ribs. CHEST: Normal x-ray examination of the chest. Electronically Signed: Mauro Mccullough MD at 10:56 EST , Discharge Plan Triage Chief Complaint: Fall ED Provider: Tamara Kaye Dx/Rx/DC Orders Clinical Impression: Chest wall contusion, Cervical strain, Fall Instructions: ED Neck Sprain or Strain, ED Contusion, Rib Prescriptions: New hydrocodone-acetaminophen [hydrocodone-acetaminophen] 1 TABLET tablet 1 tab PO Q4H PRN PRN (Reason: Pain) 2 Days Qty: 15 RF: 0 No Action acetaminophen 325 MG tablet 1,000 mg PO Q8H PRN (Reason: Pain Score 1-10/Temp > 100.7 F) Qty: 1 RF: 0 nabumetone 500 mg Tablet 500 mg PO DAILY RF: 0 prednisone 10 MG tablet 20 mg PO DAILY RF: 0 Primary Care Provider: Daniel Jimenez Referrals: Daniel Jimenez DO [Primary Care Provider] - 3-5 Days Disposition Disposition: Home, Self Care
--- NOTE | 2022-01-07 10:35 | RAD_ITS ---
STUDY: X-RAY - CERVICAL SPINE REASON FOR EXAM: Male, 51 years old. Fall last PM down 7 - 8 stairs; Neg LOC or headache; Pt C/O neck soreness and left sided rib pain upon deep breathing; TECHNIQUE: 3 view(s) of the cervical spine were obtained. COMPARISON: None FINDINGS: Normal anterior atlantoaxial articulation. Normal odontoid process. Normal cervical lordosis. Normal vertebral bodies and endplates. Normal disc space heights. Normal visualized intervertebral neuroforamina. The soft tissue structures are unremarkable. RAD/Cerv Spine 2 or 3 Views IMPRESSION: Normal x-ray examination of the visualized cervical spine. Electronically Signed: Mauro Mccullough MD at 11:24 EST ,
--- NOTE | 2022-01-07 10:35 | RAD_ITS ---
STUDY: X-RAY - UNILATERAL RIBS ( LEFT ) WITH CHEST REASON FOR EXAM: Male, 51 years old. fall TECHNIQUE - RIBS: 4 view(s) of the ribs. TECHNIQUE - CHEST: Single PA view of the chest. COMPARISON: None. FINDINGS - RIBS: Normal visualized ribs without a demonstrated fracture. FINDINGS - CHEST: The lungs are clear and expanded. There is no demonstrated pleural abnormality. Normal size heart. Normal mediastinum and agustin. Normal visualized pulmonary arteries. Normal visualized aortic arch and descending thoracic aorta. Normal visualized thoracic spine. Normal visualized ribs, clavicles, and shoulders. There is no demonstrated abnormality of the visualized soft tissue structures of the upper abdomen. RAD/Ribs Uni Min 3V w/PA Chest IMPRESSION: RIBS: Normal x-ray examination of the ribs. CHEST: Normal x-ray examination of the chest. Electronically Signed: Mauro Mccullough MD at 10:56 EST ,
[2022-01-07] MEDS: HYDROcodone Bitartrate/Apap 5/325 Tablet PO (11:40)
== END 2022-01-07 11:43 | disposition home or self-care (01) ==
PROVIDERS: Emergency Provider Emergency Medicine; PCP Family Medicine; Visit Provider Emergency Medicine
DX: S16.1XXA Strain of muscle, fascia and tendon at neck level, initial encounter (principal); I10 Essential (primary) hypertension; S20.20XA Contusion of thorax, unspecified, initial encounter; W10.9XXA Fall (on) (from) unspecified stairs and steps, initial encounter
CPT/HCPCS: 71101; 72040; 99283

== ENCOUNTER → 2023-12-20 | Outpatient (CLI) | payer BC, OTHER, SELFPAY ==
--- OUTSIDE RECORDS SUMMARY | 2023-12-20 14:01 | XMS RPT_ITS | CCD ---
Author Name Unknown Address [address] [place] [address] Organization [facility] Care Team Providers Care Register Of Wills Name Role Phone Samy Rivera DO Unavailable Medications Completed/Discontinued Medications Medication Drug Class(es) Dates Sig (Normalized) Sig (Original) docusate sodium 50 mg oral capsule (1 source) Start: 08-02-2020 COLACE CLEAR CAPS as needed for constipation DOCUSATE SODIUM CAPS [id number] Samy Rivera DO 24 hr metoprolol succinate 50 mg extended release oral tablet (1 source) beta-Adrenergic Mavis Start: 07-28-2020 METOPROLOL SUCCINATE ER 50 MG [id number] 1 tablet once daily METOPROLOL SUCCINATE [id number] Terena Smith RN omeprazole 20 mg delayed release oral tablet (1 source) Proton Pump Inhibitor Start: 07-28-2020 OMEPRAZOLE 20 MG TBEC 1 tablet daily when taking Prednisone OMEPRAZOLE [id number] Terena Smith RN oxyCODONE hydrochloride 10 mg oral tablet (1 source) Opioid Agonist Start: 07-28-2020 OXYCODONE HCL 10 MG TABS 1 tablet every 4-5 hours as needed OXYCODONE HCL [id number] Terena Msith RN polyethylene glycol 3350 83473 mg powder for oral solution (1 source) Osmotic Laxative Start: 08-02-2020 MIRALAX 17 GM PACK as directed for constipation POLYETHYLENE GLYCOL 3350 [id number] Samy Rivera DO predniSONE 10 mg oral tablet (1 source) Start: 07-28-2020 PREDNISONE 10 MG TABS 3 tablets daily for 3 days then 2 tablets daily for 3 days, etc., as directed (tapering dose) PREDNISONE [id number] Lindsayena Smith RN Problems Active Problems Problem Classification Problem Date Documented Date Episodic/Chronic Spondylosis; intervertebral disc disorders; other back problems (1 source) Other intervertebral disc displacement, lumbar region; Translations: [Other intervertebral disc displacement, lumbar region] Onset: 08-02-2020 08-02-2020 Chronic Past or Other Problems Problem Classification Problem Date Documented Da te Episodic/Chronic Unclassified (1 source) Problem Results Test Name Value Interpretation Reference Range Facil ity Vital Signs Date Time Vital Sign Value Performing Clinician Facility NEGATED: Highlighted [id number] 08:53-0400 BMI (Body Mass Index) 32.23 kg/m2 [facility] Work Phone: NEGATED: Highlighted [id number] 08:53-0400 Body weight 87.54 kg [facility] Work Phone: NEGATED: Highlighted [id number] 08:53-0400 Body weight 88 kg [facility] Work Phone: NEGATED: Highlighted [id number] 08:53-0400 Heart rate 1+ [facility] Work Phone: NEGATED: Highlighted [id number] 08:53-0400 Height 165.1 cm [facility] Work Phone: NEGATED: Highlighted [id number] 08:53-0400 Height 165 cm [facility] Work Phone: Encounters Encounter Date Encounter Type Care Provider Facility Start: 08-02-2020 End: 08-08-2020 Patient encounter procedure Samy Rivera DO Work Phone: [facility] Work Phone: Procedures Date Procedure Procedure Detail Performing Clinician Start: 08-02-2020 End: 08-02-2020 BASIC LUMBAR SUPPORT (BREG) Samy Rivera DO Work Phone: Start: 08-02-2020 End: 08-08-2020 Blood pressure screening not performed - reason not given Samy Rivera DO Work Phone: Start: 08-02-2020 End: 08-08-2020 BMI documented as above normal parameters - follow-up documented Samy Rivera DO Work Phone: Start: 08-02-2020 End: 08-08-2020 Documentation of current medications Samy Rivera DO Work Phone: Start: 08-02-2020 End: 08-08-2020 Pain assessment documented as positive - no follow-up/reason not given Samy Rivera DO Work Phone: Start: 08-02-2020 End: 08-08-2020 Tobacco non-user Samy Rivera DO Work Phone: NEGATED: Highlighted rowStart: 08-02-2020 End: 08-02-2020 Documentation of current medications Nena Granados Plan of Treatment Date Care Activity Detail Author Start: 08-25-2020 End: 08-25-2020 Appointment Appointment [facility] Work Phone: Start: 08-10-2020 End: 08-10-2020 Appointment Appointment [facility] Work Phone: Start: 08-02-2020 End: 08-02-2020 Radex spine lumbosacral minimum 4 views XR LUMBAR 4VWS FLEX/EX [facility] Work Phone: Social History Date Type Detail Facility Start: 08-08-2020 End: 08-08-2020 Assertion Unknown if ever smoked [facility] Work Phone: NEGATED: Highlighted rowStart: 08-02-2020 End: 08-02-2020 Employment detail Employment detail [facility] Work Phone: Chief Complaint Chief Complaint Description Start Date lower back pain Preliminary chief co mplaint data, not yet signed by the author as of Instructions Instruction Description Start Date CompletedPatient advised to follow-up with Primary Care Physician for BMI management. Advance Directives There may be information available, but it has not been provided by the sender. Assessments There may be information available, but it has not been provided by the sender. Review of System There may be information available, but it has not been provided by the sender. Family History There may be information available, but it has not been provided by the sender. History of Present Illness There may be information available, but it has not been provided by the sender. Additional Source Comments Reason for Visit (unrecogniz ed section and content) FOR RECORDS PERTAINING TO PATIENTS WHO ARE OR HAVE BEEN ENROLLED IN A CHEMICAL DEPENDENCY/SUBSTANCEABUSE PROGRAM, SOME INFORMATION MAY BE OMITTED. This clinical summary was aggregated from multiple sources. Caution should be exercised in using it in the provision of clinical care. This summary normalizes information from multiple sources, and as a consequence, information in this document may materially change the coding, format and clinical context of patient data. In addition, data may be omitted in some cases. CLINICAL DECISIONS SHOULD BE BASED ON THE PRIMARY CLINICAL RECORDS. [employer] provides no warranty or guarantee of the accuracy or completeness of information in this document.
== END | disposition home or self-care (01) ==
LOC: BFHLAB 13:44 → LABSPEC 13:44
PROVIDERS: PCP Family Medicine; Visit Provider Family Medicine
DX: R05.9 Cough, unspecified (principal)
CPT/HCPCS: 87631

== ENCOUNTER → 2024-01-01 | Outpatient (CLI) | payer BC, OTHER, SELFPAY ==
--- OUTSIDE RECORDS SUMMARY | 2024-01-01 08:05 | XMS RPT_ITS | CCD ---
Author Name Unknown Address [facility] [place] [address] Organization [facility] Care Team Providers Care Wall Attendant Name Role Phone Samy Rivera DO Unavailable Medications Completed/Discontinued Medications Medication Drug Class(es) Dates Sig (Normalized) Sig (Original) docusate sodium 50 mg oral capsule (1 source) Start: 08-02-2020 COLACE CLEAR CAPS as needed for constipation DOCUSATE SODIUM CAPS [id number] Samy Rivera DO 24 hr metoprolol succinate 50 mg extended release oral tablet (1 source) beta-Adrenergic Mavis Start: 07-28-2020 METOPROLOL SUCCINATE ER 50 MG [id number] 1 tablet once daily METOPROLOL SUCCINATE [id number] Terena Smith RN omeprazole 20 mg delayed release oral tablet (1 source) Proton Pump Inhibitor Start: 07-28-2020 OMEPRAZOLE 20 MG TBEC 1 tablet daily when taking Prednisone OMEPRAZOLE [id number] Terena Smith RN oxyCODONE hydrochloride 10 mg oral tablet (1 source) Opioid Agonist Start: 07-28-2020 OXYCODONE HCL 10 MG TABS 1 tablet every 4-5 hours as needed OXYCODONE HCL [id number] Terena Smith RN polyethylene glycol 3350 30707 mg powder for oral solution (1 source) Osmotic Laxative Start: 08-02-2020 MIRALAX 17 GM PACK as directed for constipation POLYETHYLENE GLYCOL 3350 [id number] Samy Rivera DO predniSONE 10 mg oral tablet (1 source) Start: 07-28-2020 PREDNISONE 10 MG TABS 3 tablets daily for 3 days then 2 tablets daily for 3 days, etc., as directed (tapering dose) PREDNISONE [id number] Lindsayena Smith RN Problems Active Problems Problem [...] Sign Value Performing Clinician Facility NEGATED: Highlighted [id number] 08:53-0400 BMI (Body Mass Index) 32.23 kg/m2 [facility] [address] Work Phone: NEGATED: Highlighted [id number] 08:53-0400 Body weight 87.[address] [facility] Work Phone: NEGATED: Highlighted [id number] 08:53-[address] [facility] Work Phone: NEGATED: Highlighted [id number] 08:53-0400 Heart rate 1+ [facility] Work Phone: NEGATED: Highlighted [id number] 08:53-[address] [facility] Work Phone: NEGATED: Highlighted [id number] 08:53-[address] [facility] Work Phone: Encounters Encounter Date Encounter Type Care Provider Facility Start: 08-02-2020 End: 08-08-2020 Patient encounter procedure Samy Rivera DO Work Phone: [facility] Work Phone: Procedures Date [...] Author Start: 08-25-2020 End: 08-25-2020 Appointment Appointment [facility] Work Phone: Start: 08-10-2020 End: 08-10-2020 Appointment Appointment [facility] Work Phone: Start: 08-02-2020 End: 08-02-2020 Radex spine lumbosacral minimum 4 views XR LUMBAR 4VWS FLEX/EX [facility] Work Phone: Social History Date Type Detail Facility Start: 08-08-2020 End: 08-08-2020 Assertion Unknown if ever smoked [facility] Work Phone: NEGATED: Highlighted rowStart: 08-02-2020 End: 08-02-2020 Employment detail Employment detail [facility] Work Phone: Chief Complaint Chief [...] BE BASED ON THE PRIMARY CLINICAL RECORDS. [employer] provides no warranty or guarantee of the accuracy or completeness of information in this document.
[2024-01-01 08:57] LABS: Absolute Neutrophil Count 3.7 X10^3/uL (2.0-7.7); Basophil# 0.04 X10^3/uL; Basophil% 0.6 % (0-1); Eosinophil# 0.21 X10^3/uL; Eosinophils% 3.1 % (0-5); Hematocrit 46.1 % (40-54); Hemoglobin 14.4 g/dL (13.0-16.5); Mean Corp Hgb Conc 31.2 g/dL (32-36); Mean Corpuscular Hgb 26.6 pg (27.0-32.0); Mean Corpuscular Volume 85.2 fL (80-94); Mean Platelet Vol. 10.5 fl (6.2-12.0); Monocyte# 0.51 X10^3/uL; Monocyte% 7.4 % (0-10); NRBC Flagged by Analyzer 0 % (0-5); Neutrophil # 3.65 X10^3/uL (2.7-7.7); Neutrophil % 53.2 % (47-70); Platelet Count 231 K/mm3 (150-450); RBC Distribution Width CV 12.1 % (11.6-14.6); RBC Distribution Width SD 37.2 fl (35.1-43.9); Red Blood Count 5.41 M/mm3 (4.6-6.2); White Blood Count 6.9 K/mm3 (4.4-11.0)
[2024-01-01 09:30] LABS: ALB/GLOB Ratio 1.1 RATIO (0.9-2.4); AST(SGOT) 36 U/L (15-37); Alanine Aminotransfer ALT/SGPT 106 U/L (16-61); Albumin, Serum 3.8 g/dL (3.2-5.0); Alkaline Phosphatase 61 U/L (45-117); Anion Gap 7 (5-15); BUN 21 mg/dL (7-18); BUN/Creat Ratio 23.9 RATIO (10-20); Calcium,Total 9.3 mg/dL (8.5-10.1); Chloride 100 mmol/L (98-107); Cholesterol 278 mg/dL (200); Creatinine, Serum 0.88 mg/dL (0.70-1.30); EST Glomerular Filtration Rate 96 mL/min (>60); Est Glom Filt Rate - Afr Amer 116 mL/min (>60); Globulin 3.6 g/dL (2.2-4.2); Glucose 403 mg/dL (74-106); High Density Lipoprotein 35 mg/dL; PSA,Total - Annual Screen 1.14 ng/mL (0.00-4.00); Potassium 4.3 mmol/L (3.5-5.1); Protein, Total 7.4 g/dL (6.4-8.2); Sodium Level 134 mmol/L (136-145); Triglycerides 338 mg/dL; Very Low Density Lipoprotein 68 mg/dL (5-40)
[2024-01-01 09:44] LABS: Hemoglobin A1c 12.9 % (3.8-5.6)
[2024-01-01 10:22] LABS: Microalbumin,Random Urine 39.1 mg/L (NO RANGE EST.); Microalbumin:Creatinine Ratio 51.6 mg/g CRE (<30 mg/g CRE)
== END | disposition home or self-care (01) ==
LOC: LAB 07:45
PROVIDERS: PCP Family Medicine; Visit Provider Family Medicine
DX: Z00.00 Encounter for general adult medical examination without abnormal findings (principal); E11.9 Type 2 diabetes mellitus without complications; Z12.5 Encounter for screening for malignant neoplasm of prostate
CPT/HCPCS: 36415; 80053; 80061; 82043; 82570; 83036; 84153; 85025; G0103

== ENCOUNTER → 2024-03-19 | Outpatient (CLI) | payer BC, OTHER, SELFPAY ==
[2024-03-19 10:32] LABS: AST(SGOT) 19 U/L (15-37); Alanine Aminotransfer ALT/SGPT 40 U/L (16-61); Albumin, Serum 4.1 g/dL (3.2-5.0); Alkaline Phosphatase 43 U/L (45-117); Bilirubin, Direct 0.17 mg/dL (0.00-0.30); Cholesterol 146 mg/dL (200); Globulin 3.3 g/dL (2.2-4.2); High Density Lipoprotein 41 mg/dL; Protein, Total 7.4 g/dL (6.4-8.2); Triglycerides 101 mg/dL; Very Low Density Lipoprotein 20 mg/dL (5-40)
[2024-03-19 10:54] LABS: Microalbumin,Random Urine 21.1 mg/L (NO RANGE EST.); Microalbumin:Creatinine Ratio 12.4 mg/g CRE (<30 mg/g CRE)
[2024-03-19 18:05] LABS: Hemoglobin A1c 8.6 % (3.8-5.6)
== END | disposition home or self-care (01) ==
PROVIDERS: PCP Family Medicine; Referring Provider Family Medicine; Visit Provider Family Medicine
DX: E11.9 Type 2 diabetes mellitus without complications (principal); E78.5 Hyperlipidemia, unspecified
CPT/HCPCS: 36415; 80061; 80076; 82043; 82570; 83036

== ENCOUNTER → 2024-06-18 | Outpatient (CLI) | payer BC, OTHER, SELFPAY ==
[2024-06-18 11:10] LABS: Microalbumin,Random Urine 30.5 mg/L (NO RANGE EST.); Microalbumin:Creatinine Ratio 19.4 mg/g CRE (<30 mg/g CRE)
[2024-06-18 11:11] LABS: Cholesterol 161 mg/dL (200); High Density Lipoprotein 50 mg/dL; Triglycerides 118 mg/dL; Very Low Density Lipoprotein 24 mg/dL (5-40)
[2024-06-18 17:08] LABS: Hemoglobin A1c 8.2 % (3.8-5.6)
== END | disposition home or self-care (01) ==
PROVIDERS: PCP Family Medicine; Referring Provider Family Medicine; Visit Provider Family Medicine
DX: E11.9 Type 2 diabetes mellitus without complications (principal); E78.5 Hyperlipidemia, unspecified
CPT/HCPCS: 36415; 80061; 82043; 82570; 83036

== ENCOUNTER 2024-07-31 07:03 | Day surgery (SDC) | payer BC, OTHER, SELFPAY ==
[2024-07-31] VITALS (7 sets, daily range): BP systolic 112–152; BP diastolic 75–106; PULSE 85–95; RESP 14–20; TEMP 36.3–36.7; O2SAT 96–100; BMI 31.8
[2024-07-31] MEDS: Lactated Ringers 1,000 ML 15 ML IV (07:32)
[2024-07-31] MEDS: amLODIPine 10 MG Tablet PO (07:50)
--- NOTE | 2024-07-31 07:54 | PCM.PRE.AN2 ---
ASA Classification* ASA Classification ASA Classification: 2 Assessment & Plan Anesthesia* Anesthesia Assessment Anesthesia Assessment: Discussed sedation and/or anesthesia options, risks, benefits, and alternatives with patient/parents/legal guardian/POA. Questions invited. The patient/parents/legal guardian/POA seems to understand and agrees to proceed with anesthesia plan. Reviewed the physical assessment, medical history, allergy history and patient home medications list prior to surgery/procedure/anesthetic and documented any changes. Performed airway and anesthesia risk assessments. Anesthesia Type Anesthesia Type: MAC History Source History Obtained from:: Patient and Chart Anesthesia Focused Assessment* Temperature: 97.7 F Pulse Rate: 91 Blood Pressure: 152/106 Respiratory Rate: 16 Pulse Ox: 98 Oxygen Delivery Method: Room Air Airway Assessment Mouth opens: >3 cm Mallampati Score: II Teeth Condition: Caps/Crowns (Left upper molar has a crown. It is tight.) Neck Range of motion (ROM): Full ROM Pertinent Findings EKG Pertinent Findings:: October 07, 2017. Normal sinus rhythm. Focused Labs Anesthesia Preop lab: CBC WBC 6.9 K/mm3 (4.4-11.0) 01/01/24 07:48 RBC 5.41 M/mm3 (4.6-6.2) 01/01/24 07:48 Hgb 14.4 g/dL (13.0-16.5) 01/01/24 07:48 Hct 46.1 % (40-54) 01/01/24 07:48 Plt Count 231 K/mm3 (150-450) 01/01/24 07:48 CHEMISTRY Potassium 4.3 mmol/L (3.5-5.1) 01/01/24 07:48 Sodium 134 mmol/L (136-145) L 01/01/24 07:48 Magnesium 1.9 mg/dL (1.6-2.6) 12/18/18 08:30 BUN 21 mg/dL (7-18) H 01/01/24 07:48 Creatinine 0.88 mg/dL (0.70-1.30) 01/01/24 07:48 Glucose 403 mg/dL (74-106) H 01/01/24 07:48 POC Glucose 196 mg/dL (74-106) H 07/31/24 07:31 TSH 1.83 uIU/mL (0.358-3.74) 11/11/19 10:23 COAG PT 13.0 SECONDS (11.7-14.9) 07/23/20 00:44 Pre-Assessment Diagnosis/Proposed Procedure Planned Operative Procedure(s): CSCOPE OA Anesthesia History Anesthesia History - director of epidemiology: Anesthesia History - director of epidemiology Hx Hospitalization No 07/28/24 14:04 Any Problems With Anesthesia No 07/28/24 14:04 Cholinesterase deficiency No 07/28/24 14:04 You/Your Family Experience No 07/28/24 14:04 fever (hyperthermia) with Relationship Recent Exposure to Contagious No 07/31/24 07:27 Disease Does patient have nerve No 07/28/24 14:04 stimulator Patient instructed to have device shut off --Does patient have Pacemaker No 07/31/24 07:27 or ICD? When Was Last Pacemaker Check QUESTION #4 FULL TEXT: You/Your Family Experience fever (hyperthermia) with Anesthesia Last Oral Intake Last Oral intake: Last Oral Intake NPO since Meds taken in AM with sips of water? Meds patient instructed to take am of surgery Any additional information?: Yes NPO since: 04:20 (Patient finished prep at 420.) Meds taken in AM with sips of water?: Yes PONV PONV - director of epidemiology: PONV - director of epidemiology Female No 07/28/24 14:04 HX of Motion Sickness No 07/28/24 14:04 HX of N/V After Surgery No 07/28/24 14:04 Non-Smoker Yes 07/28/24 14:04 Duration of Surgery greater No 07/28/24 14:04 than 60 minutes Number of Risk Factors 1 07/28/24 14:04 PONV Score Low Risk 07/28/24 14:04 Height & Weight Height & Weight: Anesthesia: Height & Weight Height 5 ft 5 in 07/31/24 07:27 Weight: 86.9 kg 07/31/24 07:27 Body Mass Index (BMI) 31.8 07/31/24 07:27 Respiratory Assessment Respiratory Assessment - director of epidemiology: Respiratory Tract Infection Hx - director of epidemiology Hx Respiratory Tract Infection No 07/28/24 14:04 STOP Sleep Apnea STOP Sleep Apnea - director of epidemiology: STOP Sleep Apnea - director of epidemiology Hx Hypertension Yes: CONTROLLED WITH MED 07/28/24 14:04 Hx Sleep Apnea No 07/28/24 14:04 CPAP BIPAP Do you snore loudly (louder No 07/28/24 14:04 than talking or can be heard Do you often feel tired/ No 07/28/24 14:04 fatigued/ sleepy during daytime? Has anyone observed you stop No 07/28/24 14:04 breathing during sleep? STOP Results Negative 07/28/24 14:04 QUESTION #5 FULL TEXT : Do you snore loudly (louder than talking or can be heard through closed doors)? 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 Specify any problems Hx of Preganancy in last 3 N/A 07/28/24 14:04 Months Nurse Filling Out Transfusion DSCHRIBER 07/28/24 14:04 & Questions: Date: 07/28/24 07/28/24 14:04 Time: 14:05 07/28/24 14:04 Patient unable to answer at this time (ie. confused, unrespo /Reproduction History /Reproductive History - director of epidemiology: /Reproductive Hx- director of epidemiology Hx Now No 07/28/24 14:04 Gestational Age (in weeks): EDC: Hx Hx Para Hx Section SAB No 07/28/24 14:04 Active Medications Active Medications: Current Medications Generic Name Dose Route Start Last Admin Trade Name Freq PRN Reason Stop Dose Admin Lactated Ringer's 1,000 mls @ 15 mls/hr 07/31/24 07:15 07/31/24 07:32 IV 15 mls/hr .Q48H AMANDEEP Administration PFSH Medical History (Updated 07/28/24 @ 14:10 by Gertrudis Muhammad) Wears glasses Alcohol use Arthritis Back pain Dietary restriction Non-smoker Sarcoidosis Asthma History of stress test Pain Hyperlipidemia Diabetes COVID-19 Hypertension Home Medications ?Medication ?Instructions ?Recorded ?Last Taken ?Type acetaminophen 325 mg tablet 1,000 mg (3.0769 x 325 mg) PO Q8H 07/23/20 Unknown Rx PRN Pain Score 1-10/Temp > 100.7 F #1 TAB albuterol sulfate 90 mcg/actuation 2 puff inhalation Q4H PRN 06/23/24 Unknown History aerosol inhaler shortness of breath or wheezing amlodipine 10 mg tablet 10 mg PO DAILY 06/23/24 07/31/24 History aspirin 81 mg tablet,delayed 81 mg PO DAILY 06/23/24 07/27/24 History release (Adult Low Dose Aspirin) metformin 500 mg tablet 500 mg PO BID 06/23/24 Unknown History rosuvastatin 10 mg tablet 10 mg PO DAILY 06/23/24 Unknown History diclofenac sodium 75 mg 75 mg PO DAILY 07/28/24 Unknown History tablet,delayed release Allergy/AdvReac Type Severity Reaction Status Date / Time No Known Allergies Allergy Verified 07/31/24 07:26 Surgical History (Updated 07/28/24 @ 14:10 by Gertrudis Muhammad) Hx of spinal surgery History of liver biopsy Hx of tonsillectomy Hx of right inguinal hernia repair Hx of vasectomy Social History (Updated 06/23/24 @ 09:23 by Alissa Zhou) household members: spouse current occupational status: employed current occupation: [employer] Smoking Status: Never smoker alcohol intake: current alcohol intake frequency: holidays/special occasions only substance use type: does not use Review of Systems (Anesthesia) ROS Narrative System reviewed and no additional complaints, except as documented.
[2024-07-31 07:59] LABS: Bedside Glucose 196 mg/dL (74-106)
--- NOTE | 2024-07-31 08:18 | H&P.OPEN ---
HPI - General HPI Narrative CELIA CANTRELL, is a 53 M who Presents for screening colonoscopy. He has never had a colonoscopy in the past. He denies abdominal pain or blood in the stool. He has no family history of colon cancer. [facility] Medical History (Updated 07/28/24 @ 14:10 by Gertrudis Muhammad) Wears glasses Alcohol use Arthritis Back pain Dietary restriction Non-smoker Sarcoidosis Asthma History of stress test Pain Hyperlipidemia Diabetes COVID-19 Hypertension Home Medications ?Medication ?Instructions ?Recorded ?Last Taken ?Type acetaminophen 325 mg tablet 1,000 mg (3.0769 x 325 mg) PO Q8H 07/23/20 Unknown Rx PRN Pain Score 1-10/Temp > 100.7 F #1 TAB albuterol sulfate 90 mcg/actuation 2 puff inhalation Q4H PRN 06/23/24 Unknown History aerosol inhaler shortness of breath or wheezing amlodipine 10 mg tablet 10 mg PO DAILY 06/23/24 07/31/24 History aspirin 81 mg tablet,delayed 81 mg PO DAILY 06/23/24 07/27/24 History release (Adult Low Dose Aspirin) metformin 500 mg tablet 500 mg PO BID 06/23/24 Unknown History rosuvastatin 10 mg tablet 10 mg PO DAILY 06/23/24 Unknown History diclofenac sodium 75 mg 75 mg PO DAILY 07/28/24 Unknown History tablet,delayed release Allergy/AdvReac Type Severity Reaction Status Date / Time No Known Allergies Allergy Verified 07/31/24 07:26 Surgical History (Updated 07/28/24 @ 14:10 by Gertrudis Muhammad) Hx of spinal surgery History of liver biopsy Hx of tonsillectomy Hx of right inguinal hernia repair Hx of vasectomy Social History (Updated 06/23/24 @ 09:23 by Alissa Zhou) household members: spouse current occupational status: employed current occupation: [employer] Smoking Status: Never smoker alcohol intake: current alcohol intake frequency: holidays/special occasions only substance use type: does not use Past Medical/Surgical History Planned Operation Planned Operative Procedure(s): CSCOPE OA S.O.S: No Previous Hospitalizations/Surgeries HX Hospitalizations: No HX of Surgeries: back surgery hernia repair elbow surgery shoulder surgery Any Problems With Anesthesia: No You/Your Family Experience Fever (Hyperthermia) With Anes: No Cholinesterase deficiency: No Cardiovascular Hx Chest Pain within Last 2 months: No Hx of Irregular Heartbeat and/or Afib: No Hx Heart Attack: No Hx Congestive Heart Failure: No Hx Rheumatic Fever: No Hx Hypertension: Yes (CONTROLLED WITH MED) Hx Internal Defibrillator: No Hx Pacemaker: No Hx Cardiac Catheterization: No Hx Cardiac Surgery/Stents/Etc.: No Hx Stress Test: Yes ([facility] > 10 YRS AGO. OK PER PT) Hx Pain in Legs when Walking/Leg Cramps: Yes Respiratory Chronic Cough: No HX of Shortness of Breath: No Hoarseness: No Hx Chronic Obstructive Pulmonary Disease (COPD): No Hx Asthma: No Hx Emphysema: No Hx Sleep Apnea: No Hx Respiratory Tract Infection/Cold (presently): No Do You Snore Loudly (louder than talking or can be heard): No Do You Often Feel Tired/ Fatigued/ Sleepy Dring Daytime?: No Has Anyone Observed You Stop Breathing During Sleep?: No Result (for STOP score): Negative Hx Smoking: No Smoking Status: Never smoker Gastrointestinal Hx Gastrointestinal Disorders: No Hx Gastrointestinal Bleed: No Hx Ulcer: No Hx Hiatal Hernia: No Difficulty Chewing/Swallowing: No Special diet followed at home: No Hx Unplanned Weight Loss of 20#: No HX Unplanned Weight Gain of 20#: No Neurological Hx Seizures: No HX Syncope/Blackout Spells/Unconsciousness: No Hx Transient Ischemic Attacks (TIA): No Hx Multiple Sclerosis: No Hx Parkinson's Disease: No Hx Head/Neck Injury: No Hx Headaches: No Hx Back Injury/Pain: No Recent Onset of Speech Difficulty: No Restless Legs: No Does patient have nerve stimulator: No Blood Disorder Hx Leukemia: No Bleeding Tendencies: No Hx Deep Vein Thrombosis: No Hx High Cholesterol: No Blood Transmitted Disease: No Hx Hepatitis: No Hx Cirrhosis: No Hx Anemia: No Hx Blood Disorders: No Reproduction : No Genitourinary Hx Renal Disease: No Hx Dialysis: No Musculoskeletal Hx Arthritis: No Hx Rheumatoid Arthritis: No Hx Gout: No Recent Onset of an Orthopedic Problem: No Endocrine Hx Diabetes: No Thyroid Disease: No Hx Steroid Therapy: No Psycho/Social Hx Substance Use: No Hx Alcohol Use: No Hx Anxiety: No Hx Depression: No Mental Illness: No Hx Dementia: No Miscellaneous Hx Cancer: No Recent Exposure to Contagious Disease: No Hx of C-Diff: No Any Loose Teeth: No Allergies No Known Allergies Allergy (Verified 07/31/24 07:26) Maternal: - (His mother from pneumonia) Paternal: Hypertension Discharge Is Pt Admitted From a Correction, or a Mcfp: No After D/C, Where Do you Plan to Go: Return Home Vital Signs Vital Signs Vital Signs: 07/31/24 07:27 07/31/24 07:27 07/31/24 08:07 Temperature 97.7 F L 97.7 F L Temperature Source Temporal Pulse Rate 91 91 Respiratory Rate 16 16 Respiratory Pattern Normal Blood Pressure 152/106 H 152/106 H Blood Pressure Mean 121 Blood Pressure Source Monitor Blood Pressure Position Semi-Fowlers Blood Pressure Location Right Arm Pulse Ox 98 98 Oxygen Delivery Method Room Air Room Air Weight Weight: 191 lb 9.307 oz Body Mass Index (BMI) 31.8 Physical Exam Const alert and oriented x3 HEENT normocephalic Eyes PERRL Resp normal respiratory effort and normal air movement Cardio regular rate and regular rhythm GI soft to palpation, non-tender and non-distended Extremity normal to inspection Assessment & Plan Assessment/Plan (1) Encounter for screening for malignant neoplasm of colon: PLAN: I explained endoscopy in detail to the patient. I explained the risks including but not limited to stroke or heart attack with anesthesia, perforation of the GI tract, bleeding, infection. I explained that any of these could necessitate further emergency surgery. The patient understands and all questions were answered sufficiently. The patient wishes to proceed with procedure. Andrei Valencia MD Pager: [facility] [address] [place] [address], [address] [place] [address] Office: Surgery Risks - Colonoscopy Risks Include but are not Limited To: Risks include but are not limited to: Bleeding, perforation requiring further surgery, inability to complete colonoscopy requiring barium enema.
--- NOTE | 2024-07-31 08:39 | OP.COLON_ITS ---
Patient Name: Jake Jaquez Procedure Date: 07/31/2024 8:23 AM Date of : 1970 Age: 53 Procedure: Colonoscopy Indications: Screening for colorectal malignant neoplasm Providers: Andrei Valencia MD Medicines: Propofol per Anesthesia Patient Profile: This is a 53 year old male. Refer to note in patient chart for documentation of history and physical. Last Colonoscopy: none. The patient's first colonoscopy is today. Complications: No immediate complications. Procedure: Pre-Anesthesia Assessment: - Prior to the procedure, a History and Physical was performed, and patient medications and allergies were reviewed. The patient's tolerance of previous anesthesia was also reviewed. The risks and benefits of the procedure and the sedation options and risks were discussed with the patient. All questions were answered, and informed consent was obtained. Prior Anticoagulants: The patient has taken no anticoagulant or antiplatelet agents. After reviewing the risks and benefits, the patient was deemed in satisfactory condition to undergo the procedure. After I obtained informed consent, the scope was passed under direct vision. Throughout the procedure, the patient's blood pressure, pulse, and oxygen saturations were monitored continuously. The Colonoscope was introduced through the anus and advanced to the cecum, identified by appendiceal orifice and ileocecal valve. The colonoscopy was performed without difficulty. The patient tolerated the procedure well. The quality of the bowel preparation was good. The ileocecal valve, appendiceal orifice, and rectum were photographed. Scope In: 8:30:21 AM Scope Withdrawal Time 0 hours 4 minutes 44 seconds Scope Out: 8:37:38 AM Total Procedure Duration Time 0 hours 7 minutes 17 seconds Findings: The entire examined colon appeared normal on direct and retroflexion views. Impression: - The entire examined colon is normal on direct and retroflexion views. - No specimens collected. Recommendation: - Discharge patient to home. - Resume previous diet. - Continue present medications. - Repeat colonoscopy in 10 years for screening purposes. Procedure Code(s): --- Professional --- 62886, Colonoscopy, flexible; diagnostic, including collection of specimen(s) by brushing or washing, when performed (separate procedure) Diagnosis Code(s): --- Professional --- Z12.11, Encounter for screening for malignant neoplasm of colon CPT copyright 2021 [employer]. All rights reserved. The codes documented in this report are preliminary and upon wellness guide review may be revised to meet current compliance requirements. Andrei Valencia MD 07/31/2024 8:39:10 AM This report has been signed electronically. Number of Addenda: 0 Note Initiated On: 07/31/2024 8:23 AM
--- NOTE | 2024-07-31 08:40 | OP.CCLET_ITS ---
07/31/2024 Daniel Jimenez [address] [place] [address] Re : Colonoscopy procedure for Jake Jaquez Dear Dr. Jimenez This procedure was performed on Wednesday, July 31, 2024. My impressions and recommendations are as follows: Impressions : - The entire examined colon is normal on direct and retroflexion views. - No specimens collected. Recommendations : - Discharge patient to home. - Resume previous diet. - Continue present medications. - Repeat colonoscopy in 10 years for screening purposes. My findings are described in the full procedure note, which is enclosed. If I can be of further assistance, please feel free to contact me at Doctor phone number(s): , Work: . Sincerely, Andrei Valencia MD 07/31/2024 8:39:10 AM This report has been signed electronically.
--- NOTE | 2024-07-31 08:44 | PCM.POST.ANE ---
Anesthesia: Postop Eval I Current Vital Signs Temperature: 98.1 F Pulse Rate: 92 Blood Pressure: 152/98 Respiratory Rate: 20 Pulse Ox: 96 Assessment Airway patent: Yes Spontaneous unlabored respirations: Yes nausea: No Vomiting: No Anesthesia Complication: No Fluid Hydration Crystalloid volume administer (ml): 500 Total IV fluid infused: 500 Progress Note Anesthesia document: Postop Eval 1 completed: Yes
--- NOTE | 2024-07-31 12:45 | POSTOPAN2_ITS ---
Anesthesia Postop Eval I Sum Postop Eval Completion status Anesthesia document: Postop Eval 1 completed: Yes Anesthesia Postop Eval I Summary Anesthesia Postop Eval I Summary: Anesthesia Postop Eval I: Assessment Summary Airway patent Yes 07/31/24 08:44 OVENS [email or web address] Spontaneous unlabored Yes 07/31/24 08:44 OVENS SUPERVISOR.CSIR respirations Mental status nausea No 07/31/24 08:44 OVENS SUPERVISOR.CSIR Vomiting No 07/31/24 08:44 OVENS SUPERVISOR.CSIR Anesthesia Postop Eval I: Fluid Summary Crystalloid volume administer 500 07/31/24 08:44 OVENS SUPERVISOR.CSIR (ml) Colloids volume administered ( ml) Blood Product volume administered (ml) Total IV fluid infused 500 07/31/24 08:44 OVENS SUPERVISOR.CSIR Anesthesia Postop Eval I: Summary Notes Anesthesia Complication No 07/31/24 08:44 OVENS SUPERVISOR.CSIR Anesthesia Complication Comment: Post-operative progress note Anesthesia: Postop Eval II Evaluation Mental status: Awake and Calm Pain Level: 0 nausea: No Vomiting: No Complications Anesthesia Complication: No
--- NOTE | 2024-07-31 12:45 | PCM.POSTANE2 ---
Anesthesia Postop Eval I Sum Postop Eval Completion status Anesthesia document: Postop Eval 1 completed: Yes Anesthesia Postop Eval I Summary Anesthesia Postop Eval I Summary: Anesthesia Postop Eval I: Assessment Summary Airway patent Yes 07/31/24 08:44 SCUBA DIVING INSTRUCTOR.CSIR Spontaneous unlabored Yes 07/31/24 08:44 SCUBA DIVING INSTRUCTOR.CSIR respirations Mental status nausea No 07/31/24 08:44 SCUBA DIVING INSTRUCTOR.CSIR Vomiting No 07/31/24 08:44 SCUBA DIVING INSTRUCTOR.CSIR Anesthesia Postop Eval I: Fluid Summary Crystalloid volume administer 500 07/31/24 08:44 SCUBA DIVING INSTRUCTOR.CSIR (ml) Colloids volume administered ( ml) Blood Product volume administered (ml) Total IV fluid infused 500 07/31/24 08:44 SCUBA DIVING INSTRUCTOR.CSIR Anesthesia Postop Eval I: Summary Notes Anesthesia Complication No 07/31/24 08:44 SCUBA DIVING INSTRUCTOR.CSIR Anesthesia Complication Comment: Post-operative progress note Anesthesia: Postop Eval II Evaluation Mental status: Awake and Calm Pain Level: 0 nausea: No Vomiting: No Complications Anesthesia Complication: No
== END 2024-07-31 09:25 | disposition home or self-care (01) ==
LOC: EN 07:04 → AC 07:05
PROVIDERS: PCP Family Medicine; Referring Provider Surgery; Visit Provider Surgery
PROC: 0DJD8ZZ Inspection of Lower Intestinal Tract, Via Natural or Artificial Opening Endoscopic (ICD-10-PCS; CPT 45378; principal; 2024-07-31 08:25)
DX: Z12.11 Encounter for screening for malignant neoplasm of colon (principal); E11.9 Type 2 diabetes mellitus without complications; E78.5 Hyperlipidemia, unspecified; I10 Essential (primary) hypertension; Z79.84 Long term (current) use of oral hypoglycemic drugs; Z79.899 Other long term (current) drug therapy; Z79.82 Long term (current) use of aspirin; Z98.52 Vasectomy status
CPT/HCPCS: 45378; 82962; J7120; J2405

== ENCOUNTER → 2024-09-14 | Outpatient (CLI) | payer BC, OTHER, SELFPAY ==
[2024-09-14 13:12] LABS: Hemoglobin A1c 9.5 % (3.8-5.6)
== END | disposition home or self-care (01) ==
PROVIDERS: PCP Family Medicine; Referring Provider Family Medicine; Visit Provider Family Medicine
DX: E11.9 Type 2 diabetes mellitus without complications (principal)
CPT/HCPCS: 36415; 83036

== ENCOUNTER → 2024-12-18 | Outpatient (CLI) | payer BC, OTHER, SELFPAY | END | disposition home or self-care (01) | PROVIDERS: PCP Family Medicine; Visit Provider Family Medicine | DX: R73.9 Hyperglycemia, unspecified (principal) | CPT/HCPCS: 36415 ==

== ENCOUNTER → 2025-03-01 | Outpatient (CLI) | payer BC, OTHER, SELFPAY ==
--- NOTE | 2025-03-01 08:13 | MRI_ITS ---
PROCEDURE: SPINE LUMBAR (ROUTINE) (MRISPL), 03/01/2025 REASON FOR EXAM: LUMBAR DDD TECHNIQUE: Multisequence multiplanar MR of the lumbar spine was performed without IV contrast. COMPARISON: 04/12/2021 ; note that images only are available for review, the report is not available at the time of the dictation. FINDINGS: Redemonstrated L4-L5 LEFT hemilaminectomy. Vertebral body heights are preserved. Slightly increased multilevel degenerative type marrow signal changes from L3-S1.. No significant malalignment. Conus medullaris terminates normally at the L1 level. Unremarkable appearance of the cauda equina allowing for crowding related to the below. L1-2: Incompletely imaged L1 vertebral body on axial sequences. No significant spinal canal or foraminal stenosis. Suspect minimal facet arthropathy. L2-3: Diffuse disc bulging, asymmetric to the LEFT with superimposed LEFT lateral disc protrusion. No significant spinal canal or foraminal stenosis. Suspect minimal facet arthropathy. L3-4: Diffuse disc bulging with loss of disc height and disc desiccation. Broad-based superimposed LEFT central/paracentral, subarticular, foraminal, and lateral disc protrusion contacting the extraforaminal nerve roots bilaterally. This results in/contributes to effacement of the LEFT lateral recess, narrowing of the RIGHT lateral recess, [id number] LEFT foraminal stenosis, and moderate RIGHT foraminal stenosis. Moderate to severe spinal canal stenosis, with near-complete effacement of CSF. Facet arthropathy. L4-5: Diffuse disc bulging with disc desiccation and loss of disc height. RIGHT paracentral annular fissure. Superimposed LEFT paracentral and subarticular disc protrusion measures roughly 12 x 6 mm and resultant effacement of the LEFT lateral recess. Small RIGHT foraminal disc protrusion also present. Moderate bilateral foraminal stenoses. Moderate focal spinal canal stenosis. Facet arthropathy. L5-S1: Diffuse disc bulging with considerable loss of disc height and disc desiccation. Superimposed LEFT subarticular and foraminal disc protrusion narrowing the LEFT neural foramen and contacting the exiting nerve root. Facet arthropathy. Moderate foraminal stenoses, [id number]. No significant focal spinal canal stenosis. Other: Lower cervical disc bulging on the foreign correspondent not well evaluated. Small mucous retention cyst, inferior RIGHT maxillary sinus. Nonspecific 12 mm T2 and T1 dark RIGHT iliac bone lesion superiorly and medially, not included within the field of view previously. MRI/Spine Lumbar (Routine) IMPRESSION: 1. Multilevel spondylosis with variable foraminal, lateral recess, and spinal c anal stenoses as detailed, largely related to disc bulging/protrusions and greatest on the LEFT at L3-L4. 2. Nonspecific 12 mm RIGHT iliac bone lesion, incompletely evaluated. Correlat e with medical history and compare against any available outside imaging to establish stability. If unavailable, consider CT or MRI with and without contrast. 3. Operative changes and additional description as above. Reading Location: [id number]
== END | disposition home or self-care (01) ==
LOC: MRI 07:58
PROVIDERS: PCP Family Medicine; Referring Provider Clinical Nurse Specialist Adult Health; Visit Provider Clinical Nurse Specialist Adult Health
DX: M51.369 Other intervertebral disc degeneration, lumbar region without mention of lumbar back pain or lower extremity pain (principal)
CPT/HCPCS: 72148

== ENCOUNTER → 2025-06-18 | Outpatient (CLI) | payer BC, OTHER, SELFPAY ==
--- OUTSIDE RECORDS SUMMARY | 2025-06-18 07:27 | XMS RPT_ITS | CCD ---
Author Organization [facility] Care Team Providers Care Porcelain Enamel Sprayer Name Role Phone Samy Rivera DO Unavailable Dr. Daniel Jimenez DO Primary Care Provider [phone] Dr. Daniel Jimenez DO Attending Provider [phone] NP. Ana Hernandez Attending Provider [phone] NP. Ana Hernandez Referring Provider Daniel Jimenez Primary Care Unavailable Ana Hernandez Attending Unavailable Ana Hernandez Referring Unavailable Andrei Valencia Attending Unavailable Andrei Valencia Referring Unavailable Daniel Jimenez Primary Care Unavailable Daniel Jimenez Primary Care Unavailable Alissa Zhou Attending Unavailable Andrei Valencia Consulting Unavailable Andrei Valencia Attending Unavailable Andrei Valencia Referring Unavailable Daniel Jimenez Primary Care Unavailable Daniel Jimenez Attending Unavailable Daniel Jimenez Referring Unavailable Daniel Jimenez Primary Care Unavailable Daniel Jimenez Attending Unavailable Daniel Jimenez Referring Unavailable Daniel Jimenez Primary Care Unavailable Daniel Jimenez Attending Unavailable Daniel Jimenez Referring Unavailable Daniel Jimenez Primary Care Unavailable Daniel Jimenez Attending Unavailable Daniel Jimenez Primary Care Unavailable Medications Current Medications Medication Drug Class(es) Dates Sig (Normalized) Sig (Original) acetaminophen 325 mg oral tablet (3 sources) Start: 07-23-2020 Acetaminophen 325 MG tablet Active 1000 mg PO Q8H as needed for Pain Score 1-10/Temp > 100.7 F July 23, 2020 12:00am alternate with ibuprofen Start: 07-23-2020 take 1000 mg by mout h every eight hours Acetaminophen Active 1000 MG PO Q8H July 23, 2020 12:00am alternate with ibuprofen [id number] actuat albuterol 0.09 mg/actuat metered dose inhaler (1 source) beta2-Adrenergic Agonist Start: 06-23-2024 Albuterol Sulfate 90 mcg/actuation HFA aerosol inhaler Active 2 NMA INHALATION Q4H as needed for shortness of breath or wheezing June 23, 2024 12:00am amLODIPine 10 mg oral tablet (1 source) Dihydropyridine Calcium Channel Mavis Start: 06-23-2024 take 1 tablet by mouth once daily Amlodipine 10 mg tablet Active 10 mg PO DAILY June 23, 2024 12:00am aspirin 81 mg delayed release oral tablet (1 source) Platelet Aggregation Inhibitor, Nonsteroidal Anti-inflammatory Drug Start: 06-23-2024 Aspirin (Adult Low Dose Aspirin) 81 mg tablet,delayed release (DR/EC) Active 81 mg PO DAILY June 23, 2024 12:00am diclofenac sodium 75 mg delayed release oral tablet (1 source) Nonsteroidal Anti-inflammatory Drug Start: 07-28-2024 take 1 tablet by mouth once daily Diclofenac Sodium 75 mg tablet,delayed release (DR/EC) Active 75 mg PO DAILY July 28, 2024 12:00am metFORMIN hydrochloride 500 mg oral tablet (1 source) Biguanide Start: 06-23-2024 take 1 tablet by mouth twice daily Metformin 500 mg tablet Active 500 mg PO TWICE A DAY June 23, 2024 12:00am rosuvastatin calcium 10 mg oral tablet (1 source) HMG-CoA Reductase Inhibitor Start: 06-23-2024 take 1 tablet by mouth once daily Rosuvastatin 10 mg tablet Active 10 mg PO DAILY June 23, 2024 12:00am Completed/Discontinued Medications Medication Drug Class(es) Dates Sig (Normalized) Sig (Original) acetaminophen 325 mg / HYDROcodone bitartrate 5 mg oral tablet (3 sources) Opioid Agonist Start: 01-07-2022 End: 07-28-2024 Hydrocodone-Acetami nophen 1 TABLET tablet Discontinued 1 {tbl} PO EVERY 4 HOURS NEEDED as needed for Pain 15 January 07, 2022 July 28, 2024 2:02pm Start: 01-07-2022 take 1 tablet by parris th every four hours as needed Hydrocodone-Acetaminophen Active 1 TABLE T PO EVERY 4 HOURS NEEDED 15 January 07, 2022 docusate sodium 50 mg oral capsule (1 source) Start: 08-02-2020 COLACE CLEAR CAPS as needed for constipation DOCUSATE SODIUM CAPS [id number] Samy Rivera DO meloxicam 15 mg oral tablet (3 sources) Nonsteroidal Anti-inflammatory Drug Start: 07-23-2020 End: 07-23-2020 take 1 tablet by mouth once daily Meloxicam 15 MG tablet Discontinued 15 mg PO DAILY July 23, 2020 12:00am July 23, 2020 12:57pm 24 hr metoprolol succinate 50 mg extended release oral tablet (1 source) beta-Adrenergic Mavis Start: 07-28-2020 METOPROLOL SUCCINATE ER 50 MG [id number] 1 tablet once daily METOPROLOL SUCCINATE [id number] Ez Smith RN nabumetone 500 mg oral tablet (3 sources) Nonsteroidal Anti-inflammatory Drug Start: 12-06-2021 End: 06-23-2024 take 1 tablet by mouth once daily Nabumetone 500 mg Tablet Discontinued 500 mg PO DAILY December 06, 2021 1:00am June 23, 2024 9:26am omeprazole 20 mg delayed release oral tablet (1 source) Proton Pump Inhibitor Start: 07-28-2020 OMEPRAZOLE 20 MG TBEC 1 tablet daily when taking Prednisone OMEPRAZOLE [id number] Ez Smith RN oxyCODONE hydrochloride 10 mg oral tablet (4 sources) Opioid Agonist Start: 07-28-2020 OXYCODONE HCL 10 MG TABS 1 tablet every 4-5 hours as needed OXYCODONE HCL [id number] Ez Smith RN Start: 07-23-2020 End: 07-26-2020 take 1 tablet by mouth every four hours as needed for pain Oxycodone 5 MG tablet Discontinued 5 mg PO Q4H as needed for Pain Score 6-10/10 18 3 July 23, 2020 July 25, 2020 12:00am July 26, 2020 12:02am polyethylene glycol 3350 83873 mg powder for oral solution (1 source) Osmotic Laxative Start: 08-02-2020 MIRALAX 17 GM PACK as directed for constipation POLYETHYLENE GLYCOL 3350 [id number] Samy Rivera DO predniSONE 10 mg oral tablet (7 sources) Start: 12-06-2021 take 4 tablets by mouth once daily, then take 3 tablets by mouth once daily, then take 2 tablets by mouth once daily, then take 1 tablet by mouth once daily Prednisone Active 20 MG PO DAILY December 06, 2021 10:19am 4 tabs daily for 3 days, then 3 tabs daily for 3 days, then 2 tabs daily for 3 days, then 1 tab daily for 3 days Start: 07-28-2020 PREDNISONE 10 MG TABS 3 tablets daily for 3 days then 2 tablets daily for 3 days, etc., as directed (tapering dose) PREDNISONE [id number] Ez Smith RN Start: 07-23-2020 End: 06-23-2024 take 4 tablets by mouth once daily, then take 3 tablets by mouth once daily, then take 2 tablets by mouth once daily, then take 1 tablet by mouth once daily Prednisone 10 MG tablet Discontinued 20 mg PO DAILY December 06, 2021 10:19am June 23, 2024 9:23am 4 tabs daily for 3 days, then 3 tabs daily for 3 days, then 2 tabs daily for 3 days, then 1 tab daily for 3 days Problems Active Problems Problem Classification Problem Date Documented Date Episodic/Chronic Abdominal hernia (3 sources) Right inguinal hernia ; Translations: [Unilateral inguinal hernia, without obstruction or gangrene, not specified as recurrent] 07-23-2020 Episodic Asthma (3 sources) Asthma; Translations: [Unspecified asthma, uncomplicated] 12-06-2021 Chronic Diabetes mellitus without complication (1 source) Type 2 diabetes mellitus without complications; Translations: [Type 2 diabetes mellitus without complications] Onset: 10-06-2024 Chronic Diabetes mellitus without complication (1 source) Hyperglycemia, unspecified; Translations: [Hyperglycemia, unspecified] Onset: 01-11-2025 Episodic E Codes: Fall (3 sources) Fall; Translations: [Unspecified fall, initial encounter] 01-15-2022 Episodic Hepatitis (3 sources) Hepatic granuloma; 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, not elsewhere classified] 07-23-2020 Chronic Spondylosis; intervertebral disc disorders; other back problems (1 source) Other intervertebral disc displacement, lumbar region; Translations: [Other intervertebral disc displacement, lumbar region] Onset: 08-02-2020 08-02-2020 Chronic Spondylosis; intervertebral disc disorders; other back problems (3 sources) Intractable low back pain; Translations: [Intractable low back pain] 07-23-2020 Episodic Sprains and strains (3 sources) Strain of neck muscle; Translations: [Strain of muscle, fascia and tendon at neck level, initial encounter] 01-15-2022 Episodic Superficial injury; contusion (3 sources) Contusion of chest; Translations: [Contusion of unspecified front wall of thorax, initial encounter] 01-15-2022 Episodic Unclassified (1 source) Other intervertebral disc degeneration, lumbar region without mention of lumbar back pain or lower extremity pain; Translations: [Other intervertebral disc degeneration, lumbar region without mention of lumbar back pain or lower extremity pain] Onset: 03-03-2025 Viral infection (3 sources) Disease caused by 2019-nCoV; Translations: [COVID-19] 12-06-2021 Episodic Past or Other Problems Problem Classification Problem Date Documented Da te Episodic/Chronic Other screening for suspected conditions (not mental disorders or infectious disease) (3 sources) Patient encounter status; Translations: [Encounter for screening for malignant neoplasm of colon] Onset: 08-07-2024 06-23-2024 Episodic Unclassified (1 source) Problem Results Test Name Value Interpretation Reference Range Facility Magnetic resonance imaging r eportOrdered By: Daniel Leal on 03-03-2025 Study report [facility] Imaging Services [address], [place] [id number] Spine Lumbar (Routine) MR#: [id number] Acct: [id number] Name: JAKE JAQUEZ Rep #: [id number] : 1970 M 54 From: Aura Leal MD PCP: Dr. Daniel Jimenez, DO Status: REG CLI Study:Spine Lumbar (Routine) Date of Exam: 03/01/25 Exam# [id number] Ordering Dr: Ana Hernandez PROCEDURE: SPINE LUMBAR (ROUTINE) (MRISPL), 03/01/2025 REASON FOR EXAM: LUMBAR DDD TECHNIQUE: Multisequence multiplanar MR of the lumbar spine was performed without IV contrast. COMPARISON: 04/12/2021 ; note that images only are available for review, the report is not available at the time of the dictation. FINDINGS: Redemonstrated L4-L5 LEFT hemilaminectomy. Vertebral body heights are preserved. Slightly increased multilevel degenerativetype marrow signal changes from L3-S1.. No significant malalignment. Conus medullaris terminates normally at the L1 level. Unremarkable appearance ofthe cauda equina allowing for crowding related to the below. L1-2: Incompletely imaged L1 vertebral body on axial sequences. No significant spinal canal or foraminal stenosis. Suspect minimal facet arthropathy. L2-3: Diffuse disc bulging, asymmetric to the LEFT with superimposed LEFT lateral disc protrusion. No significant spinal canal or foraminal stenosis. Suspect minimal facet arthropathy. L3-4: Diffuse disc bulging with loss of disc height and disc desiccation. Broad-based superimposed LEFT central/paracentral, subarticular, foraminal, and lateral disc protrusion contacting the extraforaminal nerve roots bilaterally. This results in/contributes to effacement of the LEFT lateral recess, narrowing of the RIGHT lateral recess, [id number] LEFT foraminal stenosis, and moderate RIGHT foraminal stenosis. Moderate to severe spinal canal stenosis, with near-complete effacement of CSF. Facet arthropathy. L4-5: Diffuse disc bulging with disc desiccation and loss of disc height. RIGHTparacentral annular fissure. Superimposed LEFT paracentral and subarticular disc protrusion measures roughly 12 x 6 mm and resultant effacement of the LEFT lateral recess. Small RIGHT foraminal disc protrusion also present. Moderate bilateral foraminal stenoses. Moderate focal spinal canal stenosis. Facet arthropathy. L5-S1: Diffuse disc bulging with considerable loss of disc height and disc desiccation. Superimposed LEFT subarticular and foraminal disc protrusion narrowing the LEFT neural foramen and contacting the exiting nerve root. Facet arthropathy. Moderate foraminal stenoses, [id number]-yptbuin-zrmc-RIGHT. No significant focal spinal canal stenosis. Other: Lower cervical disc bulging on the buyer not well evaluated. Small mucous retention cyst, inferior RIGHT maxillary sinus. Nonspecific 12 mm T2 and T1 dark RIGHT iliac bone lesion superiorly and medially, not included within the field of view previously. MRI/Spine Lumbar (Routine) IMPRESSION: 1. Multilevel spondylosis with variable foraminal, lateral recess, and spinal canal stenoses as detailed, largely related to disc bulging/protrusions and greatest on the LEFT at L3-L4. 2. Nonspecific 12 mm RIGHT iliac bone lesion, incompletely evaluated. Correlatewith medical history and compare against any available outside imaging to establish stability. If unavailable, consider CT or MRI with and without contrast. 3. Operative changes and additional description as above. Reading Location: [id number] CC: Ana Hernandez; Dr. Daniel Jimenez DO ~ Building Surveyor: Signed [facility] Spine Lumbar (Routine)on Spine Lumbar (Routine) [facility] Imaging Services [address] [place], [place] [id number] Spine Lumbar (Routine) MR#: [id number] Acct: [id number] Name: JAKE JAQUEZ Rep #: [id number] : 1970 M 54 From: Daniel Leal MD PCP: Dr. Daniel Jimenez DO Status: REG CLI Study: Spine Lumbar (Routine) Date of Exam: 03/01/25 Exam# [id number] Ordering Dr: Ana Hernandez PROCEDURE: SPINE LUMBAR (ROUTINE) (MRISPL), 03/01/2025 REASON FOR EXAM: LUMBAR DDD TECHNIQUE: Multisequence multiplanar MR of the lumbar spine was performed without IV contrast. COMPARISON: 04/12/2021 ; note that images only are available for review, the report is not available at the time of the dictation. FINDINGS: Redemonstrated L4-L5 LEFT hemilaminectomy. Vertebral body heights are preserved. Slightly increased multilevel degenerative type marrow signal changes from L3-S1.. No significant malalignment. Conus medullaris terminates normally at the L1 level. Unremarkable appearance of the cauda equina allowing for crowding related to the below. L1-2: Incompletely imaged L1 vertebral body on axial sequences. No significant spinal canal or foraminal stenosis. Suspect minimal facet arthropathy. L2-3: Diffuse disc bulging, asymmetric to the LEFT with superimposed LEFT lateral disc protrusion. No significant spinal canal or foraminal stenosis. Suspect minimal facet arthropathy. L3-4: Diffuse disc bulging with loss of disc height and disc desiccation. Broad-based superimposed LEFT central/paracentral, subarticular, foraminal, and lateral disc protrusion contacting the extraforaminal nerve roots bilaterally. This results in/contributes to effacement of the LEFT lateral recess, narrowing of the RIGHT lateral recess, [id number]-an-[id number] LEFT foraminal stenosis, and moderate RIGHT foraminal stenosis. Moderate to severe spinal canal stenosis, with near-complete effacement of CSF. Facet arthropathy. L4-5: Diffuse disc bulging with disc desiccation and loss of disc height. RIGHT paracentral annular fissure. Superimposed LEFT paracentral and subarticular disc protrusion measures roughly 12 x 6 mm and resultant effacement of the LEFT lateral recess. Small RIGHT foraminal disc protrusion also present. Moderate bilateral foraminal stenoses. Moderate focal spinal canal stenosis. Facet arthropathy. L5-S1: Diffuse disc bulging with considerable loss of disc height and disc desiccation. Superimposed LEFT subarticular and foraminal disc protrusion narrowing the LEFT neural foramen and contacting the exiting nerve root. Facet arthropathy. Moderate foraminal stenoses, [id number]-[id number]-tcwb-RIGHT. No significant focal spinal canal stenosis. Other: Lower cervical disc bulging on the buyer not well evaluated. Small mucous retention cyst, inferior RIGHT maxillary sinus. Nonspecific 12 mm T2 and T1 dark RIGHT iliac bone lesion superiorly and medially, not included within the field of view previously. MRI/Spine Lumbar (Routine) IMPRESSION: 1. Multilevel spondylosis with variable foraminal, lateral recess, and spinal canal stenoses as detailed, largely related to disc bulging/protrusions and greatest on the LEFT at L3-L4. 2. Nonspecific 12 mm RIGHT iliac bone lesion, incompletely evaluated. Correlate with medical history and compare against any available outside imaging to establish stability. If unavailable, consider CT or MRI with and without contrast. 3. Operative changes and additional description as above. Reading Location: [id number] CC: Ana Hernandez; Dr. Daniel Jimenez DO Building Surveyor: Signed Normal [facility] [id number] 01-01-2025 [facility]. COMMENT Normal . [facility] Comment on above: Order Comment: SER/F Z [id number] Diabetes Autoimmune Profile Result Comment: Test Ordered: [id number] Diabetes Autoimmune Profile Insulin Antibodies <5.0 uU/mL ES Reference Range: . This test is also known as insulin autoantibody or IAA. This test was developed and its performance characteristics determined by [facility]. It has not been cleared or approved by the Food and Drug Administration. Reference Range: <5.0 Negative > or = 5.0 Positive Anti ELIZABETH 65 Antibodies <5.0 U/mL ES Reference Range: . Reference Range: <5.0 Negative > or = 5.0 Positive IA-2 Autoantibodies <7.5 U/mL ES Reference Range: . Reference Range: <7.5 Negative > or = 7.5 Positive ZNT8 Antibodies <15 U/mL ES Reference Range: . Reference Range: All Ages: <15 Negative > or =15 Positive Type 1 Diabetes Interpretation Comment ES Reference Range: . Published positivity rates for diabetes autoantibodies in new-onset Type 1 Diabetes patients listed below are based on the combined analysis of ELIZABETH-65, ICA 512, Insulin Antibodies, and ZNT8 Antibodies. The combined analysis has a 98% autoimmunity detection rate, with 1.8% of Type 1 diabetic individuals remaining as autoantibody-negative. Positivity rate in new-onset Type 1 Diabetes patients: ELIZABETH-65 Antibodies = 68% positive IA-2/ICA 512 Antibodies = 72% positive Insulin Antibodies = 55% positive ZNT8 Antibodies = 63% positive An increase in the number of positive antibodies is associated with a higher likelihood of Type 1 Diabetes. Less than 3% of Type 2 Diabetics have positive antibodies.(1) Liyah et al. PNAS. 2007;104(43):26835-14486. Performed at: [facility] [address] [place] [id number] Corner Former: Luciano Branch MD, Phone: [phone] Performed at: [address] [id number] Corner Former: Jonny Damon PhD, Phone: [phone] Performed By: #### L 3410.9999 #### [facility] [address] [place] [address]. [place], [address] No Panel InformationOrdered By: Daniel Jimenez on 12-18-2024 Miscellaneous Test COMMENT . [facility] Comment on above: Test Ordered: [id number] Diabetes Autoimmune ProfileInsulin Antibodies <5.0 uU/mL ES Reference Range: .This test is also known as insulin autoantibody or IAA.This test was developed and its performance characteristicsdetermined by [facility]. It has not been cleared or approvedby the Food and Drug Administration.Reference Range:<5.0 Negative> or = 5.0 PositiveAnti ELIZABETH 65 Antibodies <5.0 U/mL ES Reference Range: .Reference Range:<5.0 Negative> or = 5.0 PositiveIA-2 Autoantibodies <7.5 U/mL ES Reference Range: .Reference Range:<7.5 Negative> or = 7.5 PositiveZNT8 Antibodies <15 U/mL ES Reference Range: .Reference Range:All Ages:<15 Negative> or =15 PositiveType 1 Diabetes Interpretation Comment ES Reference Range: .Published positivity rates for diabetes autoantibodies innew-onset Type 1 Diabetes patients listed below are basedon the combined analysis of ELIZABETH-65, ICA 512, InsulinAntibodies, and ZNT8 Antibodies. The combined analysis hasa 98% autoimmunity detection rate, with 1.8% of Type 1diabetic individuals remaining as autoantibody-negative.Positivity rate in new-onset Type 1 Diabetes patients:ELIZABETH-65 Antibodies = 68% positiveIA-2/ICA 512 Antibodies = 72% positiveInsulin Antibodies = 55% positiveZNT8 Antibodies = 63% positiveAn increase in the number of positive antibodies isassociated with a higher likelihood of Type 1 Diabetes.Less than 3% of Type 2 Diabetics have positiveantibodies.(1)Liyah et al. PNAS. 2007;104(43):73379-77445.Performed at: [facility] - [facility] [address] [place], [place] [id number] Director: Luciano Branch MD, Phone: [phone] at: - [facility] [address] [id number] Director: Jonny Damon PhD, Phone: [phone] Hemoglobin A1con 09-14-2024 HbA1c (Bld) [Mass fraction] 9.5 % High 3.8-5.6 [facility] Comment on above: Result Comment: Norm al < 5.7 % Prediabetic 5.7 - 6.4 % Diabetic >or= 6.5 % Please note range changes. Performed By: #### L 501.9985 #### [facility] [address] [place], [address] Bedside Glucoseon 07-31-2024 FINGERSTICK GLU 196 mg/dL High 74-106 [facility] Comment on above: Result Comment: JOHN BRITTON OF PATIENT CARE PER NURSING PROTOCOL Performed By: #### L 501.080 ####[facility] [address] [place], [address] Colonoscopy Reporton 024 Colonoscopy Report [facility] Medical Records Department [address] [address] Colonoscopy Report MR#: [id number] Acct: [id number] Name: JAKE JAQUEZ Rep #: [id number] : 1970 53 From: Andrei Valencia MD PCP: Dr. Daniel Jimenez, DO Status:REG [facility] Patient Name: Jake Jaquez Procedure Date: 07/31/2024 8:23 AM Date of : 1970 Age: 53 Procedure: Colonoscopy Indications: Screening for colorectal malignant neoplasm Providers: Andrei Valencia MD Medicines: Propofol per Anesthesia Patient Profile: This is a 53 year old male. Refer to note in patient chart for documentation of history and physical. Last Colonoscopy: none. The patient's first colonoscopy is today. Complications: No immediate complications. Procedure: Pre-Anesthesia Assessment: - Prior to the procedure, a History and Physical was performed, and patient medications and allergies were reviewed. The patient's tolerance of previous anesthesia was also reviewed. The risks and benefits of the procedure and the sedation options and risks were discussed with the patient. All questions were answered, and informed consent was obtained. Prior Anticoagulants: The patient has taken no anticoagulant or antiplatelet agents. After reviewing the risks and benefits, the patient was deemed in satisfactory condition to undergo the procedure. After I obtained informed consent, the scope was passed under direct vision. Throughout the procedure, the patient's blood pressure, pulse, and oxygen saturations were monitored continuously. The Colonoscope was introduced through the anus and advanced to the cecum, identified by appendiceal orifice and ileocecal valve. The colonoscopy was performed without difficulty. The patient tolerated the procedure well. The quality of the bowel preparation was good. The ileocecal valve, appendiceal orifice, and rectum were photographed. Scope In: 8:30:21 AM Scope Withdrawal Time 0 hours 4 minutes 44 seconds Scope Out: 8:37:38 AM Total Procedure Duration Time 0 hours 7 minutes 17 seconds Findings: The entire examined colon appeared normal on direct and retroflexion views. Impression: - The entire examined colon is normal on direct and retroflexion views. - No specimens collected. Recommendation: - Discharge patient to home. - Resume previous diet. - Continue present medications. - Repeat colonoscopy in 10 years for screening purposes. Procedure Code(s): --- Professional --- 29359, Colonoscopy, flexible; diagnostic, including collection of specimen(s) by brushing or washing, when performed (separate procedure) Diagnosis Code(s): --- Professional --- Z12.11, Encounter for screening for malignant neoplasm of colon CPT copyright 2021 [employer]. All rights reserved. The codes documented in this report are preliminary and upon pet nutrition specialist review may be revised to meet current compliance requirements. Andrei Valencia MD 07/31/2024 8:39:10 AM This report has been signed electronically. Number of Addenda: 0 Note Initiated On: 07/31/2024 8:23 AM 07/31/2439 Date Andrei Valencia MD Cosigner Signature: Date (if indicated) CC: Dr. Andrei Valencia MD; Dr. Daniel Jimenez DO Date Dictated: 07/31/24822 Date Transcribed: Building Surveyor: MARGARET Signed [facility] MR/POSTOP.Yohannes 07-31-2024 MR/POSTOP.[facility] Medical Records Department [address] [place] [address] Anesthesia Postop Eval I 07/31/2444 MR#: [id number] Acct: [id number] Name: ÓSCARJAKE MAXWELL Rep #: [id number] : 1970 53 From: Clarissa Ronquillo PCP: Dr. Daniel Jimenez, DO Status:[facility] Y Race: C Location: [place] [address] Anesthesia: Postop Eval I Current Vital Signs Temperature: 98.1 F Pulse Rate: 92 Blood Pressure: 152/98 Respiratory Rate: 20 Pulse Ox: 96 Assessment Airway patent: Yes Spontaneous unlabored respirations: Yes nausea: No Vomiting: No Anesthesia Complication: No Fluid Hydration Crystalloid volume administer (ml): 500 Total IV fluid infused: 500 Progress Note Anesthesia document: Postop Eval 1 completed: Yes 07/31/24 08 Date Clarissa Ronquillo Cosigner Signature: Date CC: Signed Normal [facility] [id number] 07-31-2024 [facility] Medical Records Department [address] [place] [address] Anesthesia Postop Eval II 07/31/24 1245 MR#: [id number] Acct: [id number] Name: JAKE JAQUEZ Rep #: [id number] : 1970 53 From: Sage De La Cruz MD PCP: Dr. Daniel Jimenez, DO Status:[facility] [place] Race: C Location: [place] Anesthesia Postop Eval I Sum Postop Eval Completion status Anesthesia document: Postop Eval 1 completed: Yes Anesthesia Postop Eval I Summary Anesthesia Postop Eval I Summary: Anesthesia Postop Eval I: Assessment Summary Airway patent Yes 07/31/24 08:44 [email or web address] Spontaneous unlabored Yes 07/31/24 08:44 [email or web address] respirations Mental status nausea No 07/31/24 08:44 [email or web address] Vomiting No 07/31/24 08:44 [email or web address] Anesthesia Postop Eval I: Fluid Summary Crystalloid volume administer 500 07/31/24 08:44 [email or web address] (ml) Colloids volume administered ( ml) Blood Product volume administered (ml) Total IV fluid infused 500 07/31/24 08:44 [email or web address] Anesthesia Postop Eval I: Summary Notes Anesthesia Complication No 07/31/24 08:44 [email or web address] Anesthesia Complication Comment: Post-operative progress note Anesthesia: Postop Eval II Evaluation Mental status: Awake and Calm Pain Level: 0 nausea: No Vomiting: No Complications Anesthesia Complication: No 07/31/24 1247 Date Sage Martin Signature: Date CC: Signed Normal [facility] Hemoglobin A1con 06-18-2024 HbA1c (Bld) [Mass fraction] 8.2 % High 3.8-5.6 [facility] Comment on above: Result Comment: Norm al < 5.7 % Prediabetic 5.7 - 6.4 % Diabetic >or= 6.5 % Please note range changes. Performed By: #### L 502.0250, L501.9985, L500.4101 ####[facility] [address] [facility] [id number] Lipid Profileon 06-18-2024 Cholesterol [Mass/Vol] 161 mg/dL Normal 200 [facility] Comment on above: Result Comment: <200 mg/dL Desirable 200-240 mg/dL Borderline >240 mg/dL High Risk Performed By: #### L 502.0250, [id number], L500.4106 ####[facility] [address] [place], [place], [id number] Cholesterol in HDL [Mass/Vol] 50 mg/dL Normal [facility] Comment on above: Result Comment: The drugs N-Acetylcysteine and Metamizole may falsely depress this assay. Reference Range HDL <40 mg/dL Low HDL Cholesterol HDL >or= 60 mg/dL High HDL Cholesterol Performed By: #### L 502.0250, L501.9985, L500.4100 ####[facility] [address] [place], [address] Cholesterol in LDL [Mass/Vol] 87 mg/dL Normal 0-130 [facility] Comment on above: Performed By: #### L 502.0250, L501.9985, L500.4100 ####[facility] [address] [place], [address] Cholesterol in VLDL [Mass/Vol] 24 mg/dL Normal 5-40 [facility] Comment on above: Performed By: #### L 502.0250, L501.9985, L500.4100 ####[facility] [address] [place], [address] Triglyceride [Mass/Vol] 118 mg/dL Normal [facility] Comment on above: Result Comment: The drugs N-Acetylcysteine and Metamizole may falsely depress this assay. Serum Triglycerides Reference Interval Normal <150 mg/dL Borderline high 150 - 199 mg/dL High 200 - 499 mg/dL Very High > or = 500 mg/dL Performed By: #### L 502.0250, L501.9985, L500.4100 ####[facility] [address] [place], [address] Microalb:Creat Ratio,Random URon 06-18-2024 Creatinine [Mass/Vol] 157.00 mg/dL Normal NO RAN GE EST. [facility] Comment on above: Performed By: #### L 502.0250, L501.9985, L500.4100 ####[facility] [address] [place], [address] MALB:CRE 19.4 mg/g CRE Normal <30 mg/g CRE [facility] Comment on above: Performed By: #### L 502.0250, L501.9985, L500.4100 ####[facility] [address] [place], [address] MICROALBUMIN,UR 30.5 mg/L Normal NO RANGE EST. [facility] Comment on above: Performed By: #### L 502.0250, L501.9985, L500.4100 ####[facility] [address] [place], [address] Basophil percentageOrdered B y: Daniel Jimenez on 03-19-2024 Bilirubin [Mass/Vol] 0.60 mg/dL 0.20-1.00 [facility] Comment on above: For patients on eltr ombopag therapy, use of Dimension Holman TBIL is not recommended. Cholesterol [Mass/Vol] 146 mg/dL <200 [facility] Comment on above: <200 mg/dL Desirable 200-240 mg/dL Borderline >240 mg/dL High Risk Protein [Mass/Vol] 7.4 g/dL 6.4-8.2 [facility] Triglyceride [Mass/Vol] 101 mg/dL <199 [facility] Comment on above: The drugs N-Acetylcy steine and Metamizole may falsely depress this assay.Serum Triglycerides Reference Interval Normal <150 mg/dL Borderline high 150 - 199 mg/dL High 200 - 499 mg/dL Very High > or = 500 mg/dL Direct bilirubinOrdered By: Daniel VeraBarbara on 03-19-2024 Bilirubin.direct [Mass/Vol] 0.17 mg/dL 0.00-0.30 [facility] Hemoglobin A1con 03-19-2024 HbA1c (Bld) [Mass fraction] 8.6 % High 3.8-5.6 [facility] Comment on above: Result Comment: Norm al < 5.7 % Prediabetic 5.7 - 6.4 % Diabetic >or= 6.5 % Please note range changes. Performed By: #### L 502.0250, L500.3400, L500.4100, L501.9985 #### [facility] [address] [place], [address] Laboratory - Chemistry and C hemistry - challengeOrdered By: Daniel Jimenez on 03-19-2024 ALP [Catalytic activity/Vol] 43 U/L 45-117 [facility] ALT [Catalytic activity/Vol] 40 U/L 16-61 [facility] Cholesterol in HDL [Mass/Vol] 41 mg/dL >40 [facility] Comment on above: The drugs N-Acetylcy steine and Metamizole may falsely depress this assay. Reference Range HDL <40 mg/dL Low HDL Cholesterol HDL >or= 60 mg/dL High HDL Cholesterol Cholesterol in LDL [Mass/Vol] 85 mg/dL 0-130 [facility] Globulin (S) [Mass/Vol] 3.3 g/dL 2.2-4.2 [facility] Lipid Profileon 03-19-2024 Cholesterol [Mass/Vol] 146 mg/dL Normal [address] [facility] Comment on above: Result Comment: <200 mg/dL Desirable 200-240 mg/dL Borderline >240 mg/dL High Risk Performed By: #### L 502.0250, L500.3400, L500.4100, L501.9985 #### [facility] [address] [place], [address] Cholesterol in HDL [Mass/Vol] 41 mg/dL Normal [facility] Comment on above: Result Comment: The drugs N-Acetylcysteine and Metamizole may falsely depress this assay. Reference Range HDL <40 mg/dL Low HDL Cholesterol HDL >or= 60 mg/dL High HDL Cholesterol Performed By: #### L 502.0250, L500.3400, L500.4100, L501.9985 #### [facility] [address] [place], [address] Cholesterol in LDL [Mass/Vol] 85 mg/dL Normal 0-130 [facility] Comment on above: Performed By: #### L 502.0250, L500.3400, L500.4100, L501.9985 #### [facility] [address] [place], [address] Cholesterol in VLDL [Mass/Vol] 20 mg/dL Normal 5-40 [facility] Comment on above: Performed By: #### L 502.0250, L500.3400, L500.4100, L501.9985 #### [facility] [address] [place], [address] Triglyceride [Mass/Vol] 101 mg/dL Normal [facility] Comment on above: Result Comment: The drugs N-Acetylcysteine and Metamizole may falsely depress this assay. Serum Triglycerides Reference Interval Normal <150 mg/dL Borderline high 150 - 199 mg/dL High 200 - 499 mg/dL Very High > or = 500 mg/dL Performed By: #### L 502.0250, L500.3400, L500.4100, L501.9985 #### [facility] [address] [place], [address] Liver Profileon 03-19-2024 Albumin [Mass/Vol] 4.1 g/dL Normal 3.2-5.0 [facility] Comment on above: Performed By: #### L 502.0250, L500.3400, L500.4100, L501.9985 #### [facility] [address] [place], [address] ALK P 43 U/L Low 45-117 [facility] Comment on above: Performed By: #### L 502.0250, L500.3400, L500.4100, L501.9985 #### [facility] [address] [place], [address] ALT [Catalytic activity/Vol] 40 U/L Normal 16-61 [facility] Comment on above: Performed By: #### L 502.0250, L500.3400, L500.4100, L501.9985 #### [facility] [address] [place], [address] AST [Catalytic activity/Vol] 19 U/L Normal 15-37 [facility] Comment on above: Performed By: #### L 502.0250, L500.3400, L500.4100, L501.9985 #### [facility] [address] [place], [address] Bilirubin [Mass/Vol] 0.60 mg/dL Normal 0.20-1.00 [facility] Comment on above: Result Comment: For patients on eltrombopag therapy, use of Dimension Holman TBIL is not recommended. Performed By: #### L 502.0250, L500.3400, L500.4100, L501.9985 #### [facility] [address] [place], [address] Bilirubin.direct [Mass/Vol] 0.17 mg/dL Normal 0.00-0.30 [facility] Comment on above: Performed By: #### L 502.0250, L500.3400, L500.4100, L501.9985 #### [facility] [address] [place], [address] Globulin (S) [Mass/Vol] 3.3 g/dL Normal 2.2-4.2 [facility] Comment on above: Performed By: #### L 502.0250, L500.3400, L500.4100, L501.9985 #### [facility] [address] [place], [address] T PROT 7.4 g/dL Normal 6.4-8.2 [facility] Comment on above: Performed By: #### L 502.0250, L500.3400, L500.4100, L501.9985 #### [facility] [address] [place], [address] Microalb:Creat Ratio,Random URon 03-19-2024 Creatinine [Mass/Vol] 170.00 mg/dL Normal NO RAN GE EST. [facility] Comment on above: Performed By: #### L 502.0250, L500.3400, L500.4100, L501.9985 #### [facility] [address] [place], [place], [address] MALB:CRE 12.4 mg/g CRE Normal <30 mg/g CRE [facility] Comment on above: Performed By: #### L 502.0250, L500.3400, L500.4100, L501.9985 #### [facility] [address] [place], [place], [address] MICROALBUMIN,UR 21.1 mg/L Normal NO RANGE EST. [facility] Comment on above: Performed By: #### L 502.0250, L500.3400, L500.4100, L501.9985 #### [facility] [address] [place], [place], [id number] No Panel InformationOrdered By: Daniel Jimenez on 03-19-2024 Urine Microalbumin/Creatinin e Ratio 12.4 mg/g CRE <30 [facility] VLDL Cholesterol 20 mg/dL 5-40 [facility] Thin prep Papanicolaou smear with manual screeningOrdered By: Daniel Jimenez on 03-19-2024 Thin prep Papanicolaou smear with manual screening 4.1 g/dL 3.2-5.0 [facility] Thin prep Papanicolaou smear with manual screening 19 U/L 15-37 [facility] Thin prep Papanicolaou smear with manual screening 21.1 mg/L NO RANGE EST. [facility] Urine creatinine measurement (mass/volume)Ordered By: Daniel Jimenez on 03-19-2024 Creatinine (U) [Mass/Vol] 170.00 mg/dL NO RANGE EST. [facility] Whole blood hemoglobin A1c/t otal hemoglobin ratio (mass fraction)Ordered By: Daniel Jimenez on 03-19-2024 HbA1c (Bld) [Mass fraction] 8.6 % 3.8-5.6 [facility] Comment on above: Normal < 5.7 % Predi abetic 5.7 - 6.4 % Diabetic >or= 6.5 % Please note range changes. Absolute lymphocyte countOrd ered By: Daniel Jimenez on 01-01-2024 Lymphocytes Auto (Unsp spec) [#/Vol] 2.40 10*3/uL 0.83-4.51 [facility] Automated lymphocyte count a s percentage of total leukocytesOrdered By: Daniel Jimenez on 01-01-2024 Lymphocytes/100 WBC Auto (Unsp spec) 35.0 % 19-41 [facility] Basophil percentageOrdered B y: Daniel Jimenez on 01-01-2024 Basophils/100 WBC (Bld) 0.6 % 0-1 [facility] Bilirubin [Mass/Vol] 0.40 mg/dL 0.20-1.00 [facility] Comment on above: For patients on eltr ombopag therapy, use of Dimension Holman TBIL is not recommended. Chloride [Moles/Vol] 100 mmol/L 98-107 [facility] Cholesterol [Mass/Vol] 278 mg/dL <200 [facility] Comment on above: <200 mg/dL Desirable 200-240 mg/dL Borderline >240 mg/dL High Risk Eosinophils/100 WBC (Bld) 3.1 % 0-5 [facility] Glucose [Mass/Vol] 403 mg/dL 74-106 [facility] Comment on above: Glucose result great er than or equal to 200 mg/dLsuggests DIABETES MELLITUS per A.D.A. criteria. Hemoglobin (Bld) [Mass/Vol] 14.4 g/dL 13.0-16.5 [facility] Monocytes/100 WBC (Bld) 7.4 % 0-10 [facility] Neutrophils (Bld) [#/Vol] 3.7 10*3/uL 2.0-7.7 [facility] Neutrophils/100 WBC (Bld) 53.2 % 47-70 [facility] Potassium [Moles/Vol] 4.3 mmol/L 3.5-5.1 [facility] Comment on above: Slight Hemolysis, Re sult may be falsely increased. Protein [Mass/Vol] 7.4 g/dL 6.4-8.2 [facility] Sodium [Moles/Vol] 134 mmol/L 136-145 [facility] Triglyceride [Mass/Vol] 338 mg/dL <199 [facility] Comment on above: The drugs N-Acetylcy steine and Metamizole may falsely depress this assay.Serum Triglycerides Reference Interval Normal <150 mg/dL Borderline high 150 - 199 mg/dL High 200 - 499 mg/dL Very High > or = 500 mg/dL WBC (Bld) [#/Vol] 6.9 10*3/uL 4.4-11.0 [facility] Determination of erythrocyte mean corpuscular volume (MCV)Ordered By: Daniel Jimenez on 01-01-2024 MCV (RBC) [Entitic vol] 85.2 fL 80-94 [facility] Erythrocyte distribution wid th ratioOrdered By: Daniel Barbara on 01-01-2024 Erythrocyte distribution width (RBC) [Ratio] 12.1 % 11.6-14.6 [facility] Erythrocyte distribution wid th standard deviationOrdered By: Daniel Barbara on 01-01-2024 Erythrocyte distribution width (RBC) [Entitic vol] 37.2 fL 35.1-43.9 [facility] Hematocrit Auto (Bld) [Volum e fraction]Ordered By: Daniel Jimenez on 01-01-2024 Hematocrit (Bld) [Volume fraction] 46.1 % 40-54 [facility] Immature granulocytes/100 WB C Auto (Bld)Ordered By: Daniel Jimenez on 01-01-2024 Immature granulocytes/100 WBC (Bld) 0.700 % 0.0-0.9 [facility] Comment on above: IG% - Immature Granu locytes (promyelocytes, myelocytes and metamyelocytes) > 1% indicates that a LEFT SHIFT is Present. Laboratory - Chemistry and C hemistry - challengeOrdered By: Daniel Jimenez on 01-01-2024 Albumin/Creatinine DL <= 1.0 mg/L (24H U) [Ratio] 51.6 mg/g CRE <30 [facility] Albumin/Globulin [Mass ratio] 1.1 {ratio} 0.9-2.4 [facility] ALP [Catalytic activity/Vol] 61 U/L 45-117 [facility] ALT [Catalytic activity/Vol] 106 U/L 16-61 [facility] Cholesterol in HDL (Body fld) [Mass/Vol] 35 mg/dL >40 [facility] Comment on above: The drugs N-Acetylcy steine and Metamizole may falsely depress this assay. Reference Range HDL <40 mg/dL Low HDL Cholesterol HDL >or= 60 mg/dL High HDL Cholesterol Cholesterol in LDL (Body fld) [Moles/Vol] 175 mg/dL 0-130 [facility] Cholesterol in VLDL Calc [Moles/Vol] 68 mg/dL 5-40 [facility] CO2 [Moles/Vol] 27.0 mmol/L 21.0-32.0 [facility] Globulin (S) [Mass/Vol] 3.6 g/dL 2.2-4.2 [facility] Prostate specific Ag IA [Mass/Vol] 1.14 ng/mL 0.00-4.00 [facility] Comment on above: This test was perfor med using the TPSA assay method for [employer] chemistry system. Values obtained with differentassay methods cannot be used interchangably.When changing PSA assays in the course of monitoring apatient, additional sequential testing should be carriedout to confirm baseline values. Urea nitrogen/Creatinine [Mass ratio] 23.9 mg/mg 10-20 [facility] - Hematology and Cell countsOrdered By: Daniel Jimenez on 01-01-2024 MCH (RBC) [Entitic mass] 26.6 pg 27.0-32.0 [facility] MCHC (RBC) [Mass/Vol] 31.2 g/dL 32-36 [facility] Nucleated RBC/100 WBC (Bld) [Ratio] 0 % 0-5 [facility] Platelets (Bld) [#/Vol] 231 10*3/uL 150-450 [facility] No Panel InformationOrdered By: Daniel Jimenez on 01-01-2024 Estimated GFR (MDRD) Amer 116 mL/min >60 [facility] Comment on above: GFR Calc Estimated GFR (MDRD) Non-Af Amer 96 mL/min >60 [facility] Comment on above: Non- GFR Calc Platelet mean volume Zay-Ec ker (Bld) [Entitic vol]Ordered By: Daniel Jimenez on 01-01-2024 Platelet mean volume (Bld) [Entitic vol] 10.5 fL 6.2-12.0 [facility] RBC Auto (Bld) [#/Vol]Ordere d By: Daniel Jimenez on 01-01-2024 RBC (Bld) [#/Vol] 5.41 10*6/uL 4.6-6.2 [facility] Serum or plasma calcium natividad urement (mass/volume)Ordered By: Daniel Jimenez on 01-01-2024 Calcium [Mass/Vol] 9.3 mg/dL 8.5-10.1 [facility] Serum or plasma creatinine m easurement (mass/volume)Ordered By: aDniel Jimenez on 01-01-2024 Creatinine [Mass/Vol] 0.88 mg/dL 0.70-1.30 [facility] Comment on above: The validity of the calculated GFR & GFRAA in patients over 70 years has not been determined. Clinical correlation is essential. Serum or plasma urea nitroge n measurement (mass/volume)Ordered By: Daniel Jimenez on 01-01-2024 Urea nitrogen [Mass/Vol] 21 mg/dL 7-18 [facility] Thin prep Papanicolaou smear with manual screeningOrdered By: Daniel Jimenez on 01-01-2024 Thin prep Papanicolaou smear with manual screening 3.8 g/dL 3.2-5.0 [facility] Thin prep Papanicolaou smear with manual screening 36 U/L 15-37 [facility] Comment on above: Slight Hemolysis, Re sult may be falsely increased. Thin prep Papanicolaou smear with manual screening 7 5-15 [facility] Thin prep Papanicolaou smear with manual screening 39.1 mg/L NO RANGE EST. [facility] Urine creatinine measurement (mass/volume)Ordered By: Daniel Jimenez on 01-01-2024 Creatinine (U) [Mass/Vol] 75.80 mg/dL NO RANGE EST. [facility] Whole blood hemoglobin A1c/t otal hemoglobin ratio (mass fraction)Ordered By: Daniel Jimenez on 01-01-2024 HbA1c (Bld) [Mass fraction] 12.9 % 3.8-5.6 [facility] Comment on above: Normal < 5.7 % Predi abetic 5.7 - 6.4 % Diabetic >or= 6.5 % Please note range changes. Laboratory - Microbiology an d Antimicrobial susceptibilityOrdered By: Daniel Jimenez on 12-20-2023 SARS-CoV-2 (COVID-19) RNA JE+probe Ql (Unsp spec) [facility] SARS-CoV-2 (COVID-19) RNA JE+probe Ql (Unsp spec) [facility] Lab Report: PCR [id number] 2019NCoV (COVID-19) Lab Test Result (Text) Not Detected Normal [facility] Work Phone: Lab Report: Basic Metabolic Panelon 08-03-2020 Anion gap [Moles/Vol] 9 (?) [facility] Work Phone: Calcium [Mass/Vol] 9.5 mg/dL 8.4-10.4 [facility] Work Phone: Chloride [Moles/Vol] 93 mmol/L Low 98-107 [facility] Work Phone: CO2 [Moles/Vol] 31 mmol/L High 22-30 [facility] Work Phone: Creatinine [Mass/Vol] 0.65 mg/dL 0.52-1.25 [facility] Work Phone: GFR/1.73 sq M predicted among blacks MDRD (S/P/Bld) [Vol rate/Area] mL/min/{1.73_m2} >60 [facility] Work Phone: GFR/1.73 sq M predicted among non-blacks MDRD (S/P/Bld) [Vol rate/Area] mL/min/{1.73_m2} >60 [facility] Work Phone: Glucose [Mass/Vol] 241 mg/dL High 70-100 [facility] Work Phone: Potassium [Moles/Vol] 4.8 mmol/L 3.5-5.1 [facility] Work Phone: Sodium [Moles/Vol] 133 mmol/L Low 135-145 [facility] Work Phone: Urea nitrogen [Mass/Vol] 18 mg/dL 7-20 [facility] Work Phone: Lab Report: Complete Urinaly wilver 08-03-2020 WBC LM.HPF (Urine sed) [#/Area] Many /[LPF] Abnormal Negative [facility] Work Phone: pH (U) YELLOW Lt. Yellow [facility] Work Phone: Lab Report: Hemogramon 08-03 Erythrocyte distribution width (RBC) [Ratio] 13.0 % 11.5-14.5 [facility] Work Phone: Hematocrit (Bld) [Volume fraction] 46.4 % 40.0-52.0 [facility] Work Phone: Hemoglobin (Bld) [Mass/Vol] 15.3 g/dL 13.0-18.0 [facility] Work Phone: MCH (RBC) [Entitic mass] 28.2 pg 26.0-34.0 [facility] Work Phone: MCHC (RBC) [Mass/Vol] 32.9 % 32.0-36.0 Cry stal [facility] Work Phone: MCV (RBC) [Entitic vol] 85.6 fL 80.0-98.0 [facility] Work Phone: Platelet mean volume (Bld) [Entitic vol] 8.2 fL 7.4-10.4 [facility] Work Phone: Platelets (Bld) [#/Vol] 279 10*3/mm3 140-440 [facility] Work Phone: RBC (Bld) [#/Vol] 5.43 10*6/mm3 4.40-5.90 [facility] Work Phone: WBC (Bld) [#/Vol] 10.5 10*3/mm3 3.6-10.7 [facility] Work Phone: Clinical Summary: HMSPatient IDon 08-02-2020 OOP [facility] Work Phone: Office Visit: New - 1st visi t with practice, Rm: 2on 08-02-2020 NEGATED: Highlighted rowCT scan history of the back on 07/23/2020 at [facility] Work Phone: NEGATED: Highlighted rowMRI (magnetic resonance imaging) history of the back on 07/23/2020 at [facility] Work Phone: Vital Signs Date Time Vital Sign Value Performing Clinician Facility NEGATED: Highlighted [id number] 08:53-0400 BMI (Body Mass Index) 32.23 kg/m2 [facility] Work Phone: NEGATED: Highlighted [id number] 08:53-0400 Body weight 87.54 kg [facility] Work Phone: NEGATED: Highlighted [id number] 08:53-0400 Body weight 88 kg [facility] Work Phone: NEGATED: Highlighted [id number] 08:53-0400 Heart rate 1+ [facility] Work Phone: NEGATED: Highlighted [id number] 08:53-0400 Height 165.1 cm [facility] Work Phone: NEGATED: Highlighted [id number] 08:53-0400 Height 165 cm Nena Tittel [facility] Work Phone: Encounters Encounter Date Encounter Type Care Provider Facility Start: 03-01-2025 End: 03-01-[address] Daniel Jimenez DO Work Phone: [facility] Work Phone: Start: 03-01-2025 End: 03-01-2025 Patient encounter procedure Ana Hernandez [facility] Work Phone: Start: 03-01-2025 End: 03-01-2025 ambulatory Daniel Jimenez Facility:[facility] Start: 12-18-2024 End: 12-18-[address] Daniel Jimenez DO -Laboratory, [facility] Start: 12-18-2024 End: 12-18-2024 ambulatory Daniel Jimenez Facility:[facility] Start: 09-14-2024 End: 09-14-2024 ambulatory Daniel Jimenez Facility:[facility] Start: 07-31-2024 ambulatory Andrei Erik Faci lity:[facility] Start: 07-31-2024 End: 07-31-[facility] Start: 06-23-2024 ambulatory Daniel Jimenez Facility: [facility] Start: 06-18-2024 End: 06-18-2024 ambulatory Daniel Barbara Facility:[facility] Start: 03-19-2024 End: 03-19-2024 ambulatory [facility] Work Phone: Start: 03-19-2024 End: 03-19-2024 Patient encounter procedure [facility], [place] Work Phone: Start: 03-19-2024 End: 03-19-2024 ambulatory Daniel Jimenez Facility:[facility] Start: 01-01-2024 End: 01-01-2024 Patient encounter procedure [facility] Work Phone: Start: 12-20-2023 End: 12-20-2023 ambulatory [facility] Work Phone: Start: 12-20-2023 End: 12-20-2023 Patient encounter procedure [facility], Specimen Work Phone: Start: 08-02-2020 End: 08-08-2020 Patient encounter procedure Samy Loya Miguel DO Work Phone: [facility] Work Phone: Procedures Date Procedure Procedure Detail Performing Clinician Start: 03-01-2025 MRI of lumbar spine Dr. Daniel Jimenez DO Work Phone: Start: 12-20-2023 SARS-CoV-2, Influenz a & RSV (PCR) Start: 08-02-2020 End: 08-02-2020 BASIC LUMBAR SUPPORT (BREG) Samy Rivera DO Work Phone: Start: 08-02-2020 End: 08-08-2020 Blood pressure screening not performed - reason not given Samy Loya Rivera DO Work Phone: Start: 08-02-2020 End: 08-08-2020 BMI documented as above normal parameters - follow-up documented Samy Loya Rivera DO Work Phone: Start: 08-02-2020 End: 08-08-2020 Documentation of current medications Samy Loya Rivera DO Work Phone: Start: 08-02-2020 End: 08-08-2020 Pain assessment documented as positive - no follow-up/reason not given Samy Loya Rivera DO Work Phone: Start: 08-02-2020 End: 08-08-2020 Tobacco non-user Samy Loya Rivera DO Work Phone: NEGATED: Highlighted rowStart: 08-02-2020 End: 08-02-2020 Documentation of current medications Nena Granados Plan of Treatment Date Care Activity Detail Author Start: 08-25-2020 End: 08-25-2020 Appointment Appointment [facility] Work Phone: Start: 08-10-2020 End: 08-10-2020 Appointment Appointment [facility] Work Phone: Start: 08-02-2020 End: 08-02-2020 Radex spine lumbosacral minimum 4 views XR LUMBAR 4VWS FLEX/EX [facility] [place] [facility] Work Phone: Immunizations Immunization Date Immunization Notes Care Provider Michaela winkler 08-16-2019 Influenza virus vaccine [facility] Payers Date Payer Category Payer Self-pay [id number] 2013 Unknown [id number] 2013 Unknown [id number] Unknown [employer] [id number] Unknown [id number] Unknown [id number] Unknown [id number] Unknown [id number] Unknown [id number] Unknown [id number] Unknown [id number] Unknown [id number] Social History Date Type Detail Facility Start: 01-07-2022 End: 01-07-2022 Assertion Unknown if ever smoked [facility] Work Phone: Start: 1970 Sex Assigned At Male [facility] Start: 07-31-2024 Tobacco smoking status NHIS Never smoked tobacco (finding) [facility] Start: 03-03-2025 Sex Male (finding) [facility] NEGATED: Highlighted rowStart: 08-02-2020 End: 08-02-2020 Employment detail Employment detail [facility] Work Phone: Clinical Note 07-31-2024 Note Date & Type Note Facility 07-31-2024 Note [facility] Medical Records Department [address] [place] [address] History Physical Exam 07/31/24817 MR#: [id number] Acct: [id number] Name: JAKE JAQUEZ Rep #: [id number] : 1970 53 From: Andrei Valencia MD PCP: Dr. Daniel Jimenez, DO Status:[facility] [place] Location: [place] [address] HPI - General HPI Narrative JAKE JAQUEZ, is a 53 M who Presents for screening colonoscopy. He has never had a colonoscopy in the past. He denies abdominal pain or blood in the stool. He has no family history of colon cancer. [facility] Medical History (Updated 07/28/24 @ 14:10 by Gertrudis Muhammad) Wears glasses Alcohol use Arthritis Back pain Dietary restriction Non-smoker Sarcoidosis Asthma History of stress test Pain Hyperlipidemia Diabetes COVID-19 Hypertension Home Medications ???Medication ???Instructions ???Recorded ???Last Taken ???Type acetaminophen 325 mg tablet 1,000 mg (3.0769 x 325 mg) PO Q8H 07/23/20 Unknown Rx PRN Pain Score 1-10/Temp > 100.7 F #1 TAB albuterol sulfate 90 mcg/actuation 2 puff inhalation Q4H PRN 06/23/24 Unknown History aerosol inhaler shortness of breath or wheezing amlodipine 10 mg tablet 10 mg PO DAILY 06/23/24 07/31/24 History aspirin 81 mg tablet,delayed 81 mg PO DAILY 06/23/24 07/27/24 History release (Adult Low Dose Aspirin) metformin 500 mg tablet 500 mg PO BID 06/23/24 Unknown History rosuvastatin 10 mg tablet 10 mg PO DAILY 06/23/24 Unknown History diclofenac sodium 75 mg 75 mg PO DAILY 07/28/24 Unknown History tablet,delayed release Allergy/AdvReac Type Severity Reaction Status Date / Time No Known Allergies Allergy Verified 07/31/24 07:26 Surgical History (Updated 07/28/24 @ 14:10 by Gertrudis Muhammad) Hx of spinal surgery History of liver biopsy Hx of tonsillectomy Hx of right inguinal hernia repair Hx of vasectomy Social History (Updated 06/23/24 @ 09:23 by Alissa Zhou) household members: spouse current occupational status: employed current occupation: [employer] Smoking Status: Never smoker alcohol intake: current alcohol intake frequency: holidays/special occasions only substance use type: does not use Past Medical/Surgical History Planned Operation Planned Operative Procedure(s): CSCOPE OA S.O.S: No Previous Hospitalizations/Surgeries HX Hospitalizations: No HX of Surgeries: back surgery hernia repair elbow surgery shoulder surgery Any Problems With Anesthesia: No You/Your Family Experience Fever (Hyperthermia) With Anes: No Cholinesterase deficiency: No Cardiovascular Hx Chest Pain within Last 2 months: No Hx of Irregular Heartbeat and/or Afib: No Hx Heart Attack: No Hx Congestive Heart Failure: No Hx Rheumatic Fever: No Hx Hypertension: Yes (CONTROLLED WITH MED) Hx Internal Defibrillator: No Hx Pacemaker: No Hx Cardiac Catheterization: No Hx Cardiac Surgery/Stents/Etc.: No Hx Stress Test: Yes ([facility] > 10 YRS AGO. OK PER PT) Hx Pain in Legs when Walking/Leg Cramps: Yes Respiratory Chronic Cough: No HX of Shortness of Breath: No Hoarseness: No Hx Chronic Obstructive Pulmonary Disease (COPD): No Hx Asthma: No Hx Emphysema: No Hx Sleep Apnea: No Hx Respiratory Tract Infection/Cold (presently): No Do You Snore Loudly (louder than talking or can be heard): No Do You Often Feel Tired/ Fatigued/ Sleepy Dring Daytime?: No Has Anyone Observed You Stop Breathing During Sleep?: No Result (for STOP score): Negative Hx Smoking: No Smoking Status: Never smoker Gastrointestinal Hx Gastrointestinal Disorders: No Hx Gastrointestinal Bleed: No Hx Ulcer: No Hx Hiatal Hernia: No Difficulty Chewing/Swallowing: No Special diet followed at home: No Hx Unplanned Weight Loss of 20#: No HX Unplanned Weight Gain of 20#: No Neurological Hx Seizures: No HX Syncope/Blackout Spells/Unconsciousness: No Hx Transient Ischemic Attacks (TIA): No Hx Multiple Sclerosis: No Hx Parkinson's Disease: No Hx Head/Neck Injury: No Hx Headaches: No Hx Back Injury/Pain: No Recent Onset of Speech Difficulty: No Restless Legs: No Does patient have nerve stimulator: No Blood Disorder Hx Leukemia: No Bleeding Tendencies: No Hx Deep Vein Thrombosis: No Hx High Cholesterol: No Blood Transmitted Disease: No Hx Hepatitis: No Hx Cirrhosis: No Hx Anemia: No Hx Blood Disorders: No Reproduction : No Genitourinary Hx Renal Disease: No Hx Dialysis: No Musculoskeletal Hx Arthritis: No Hx Rheumatoid Arthritis: No Hx Gout: No Recent Onset of an Orthopedic Problem: No Endocrine Hx Diabetes: No Thyroid Disease: No Hx Steroid Therapy: No Psycho/Social Hx Substance Use: No Hx Alcohol Use: No Hx Anxiety: No Hx Depression: No Mental Illness: No Hx Dementia: No Miscellaneous Hx Cancer: No Recent Exposure to Contagiou (more content not included)... [facility] Evaluation note Note Date & Type Note Facility Evaluation note No assessment information availa ble [facility] Work Phone: Reason for referral (narrative) Note Date & Type Note Facility Reason for referral (narrative) No reason for referral information available [facility] Work Phone: Chief Complaint Chief Complaint Description Start Date lower back pain Preliminary chief co mplaint data, not yet signed by the author as of Instructions Instruction Description Start Date CompletedPatient advised to follow-up with Primary Care Physician for BMI management. Advance Directives No Advanced Directives Records Found Advance Directive Response Recorded Date/ Time Living Will No January 07 11:25am Power of Certification And Selection Specialist No January 07, 2022 11:25am Advance Directive Response Recorded Date/ Time Living Will No January 07 12:25pm Power of Certification And Selection Specialist No January 07, 2022 12:25pm Assessments There may be information available, but it has not been provided by the sender. Review of System There may be information available, but it has not been provided by the sender. Family History No Family History Records Found Relationship Condition Age at Onset Recorded Date/T suzette Unknown Family History?- Unknown July 2:48am Family History?Hypertension Unknown July 23, 2020 2:48am Relationship Condition Age at Onset Recorded Date/T suzette Unknown Family History?- Unknown July 3:48am Family History?Hypertension Unknown July 23, 2020 3:48am Relationship Condition Age at Onset Recorded Date/T suzette Unknown Family History?- Unknown July 8:20am Family History?Hypertension Unknown July 31, 2024 8:20am History of Present Illness There may be information available, but it has not been provided by the sender. Chief Complaint and Reason for Visit Chief Complaint Admit Date LUMBAR DDD March 01, 2025 7:5 5am Summary Purpose Additional Source Comments Reason for Visit (unrecogniz ed section and content) Reason For Visit Description New - 1st visit with practice Preliminary reason f or visit data, not yet signed by the author as of lower back pain Care Teams (unrecognized sec tion and content) Team Status: Active Member Role Status Dates Dr. Daniel Jimenez DO Family Provider Active Dr. Daniel Jimenez DO Primary Care Provider Active Team Status: Inactive Member Role Status Dates Dr. Daniel Jimenez DO Primary Care Provider, Attendin g Provider Active Team Status: Inactive Member Role Status Dates Dr. Daniel Jimenez DO Primary Care Prov ider, Attending Provider, Referring Provider Active Team Status: Active Member Role Status Dates Dr. Daniel Jimenez DO Primary Care Provider Active Team Status: Inactive Member Role Status Dates Dr. Daniel Jimenez DO Primary Care Provider Active Start: December 18, 2024 End: December 18, 2024 Dr. Daniel Jimenez DO Attending Provider Active Start: December 18, 2024 End: December 18, 2024 Team Status: Inactive Member Role Status Dates Dr. Daniel Jimenez DO Primary Care Provider Active Start: March 01, 2025 End: March 01, 2025 NP. Ana Hernandez Attending Provider Active Star t: March 01, 2025 End: March 01, 2025 NP. Ana Hernandez Referring Provider Active Star t: March 01, 2025 End: March 01, 2025 Goals (unrecognized section and content) Goals may be documented in a n alternate sectionGoals may be documented in an alternate sectionGoals may be documented in an alternate section (unrecognized sect ion and content) No Status Records Found INFORMATION SOURCE (unrecogn ized section and content) DATE CREATED AUTHOR 03/06/2025 [facility] FOR RECORDS PERTAINING TO PATIENTS WHO ARE [...] BE BASED ON THE PRIMARY CLINICAL RECORDS. [facility] [employer] provides no warranty or guarantee of the accuracy or completeness of information in this document.
[2025-06-18 11:27] LABS: Creatinine, Urine (random) 348.00 mg/dL (39.00-259.00); Microalbumin,Random Urine 27.0 mg/L (<20 mg/L)
[2025-06-18 12:21] LABS: AST(SGOT) 18 U/L (<=37); Alanine Aminotransfer ALT/SGPT 24 U/L (<=46); Albumin, Serum 4.5 g/dL (3.5-5.0); Alkaline Phosphatase 53 U/L (40-129); Bilirubin, Direct 0.17 mg/dL (0.00-0.30); Cholesterol 140 mg/dL (<=200); Globulin 2.8 g/dL (2.2-4.2); Low Density Lipoprotein Calc. 74 mg/dL; PSA,Total - Annual Screen 1.14 ng/mL (0.02-4.00); Triglycerides 115 mg/dL; Very Low Density Lipoprotein 23 mg/dL (5-40); cholesterol:hdl ratio screen 3.27
== END | disposition home or self-care (01) ==
PROVIDERS: PCP Family Medicine; Referring Provider Family Medicine; Visit Provider Family Medicine
DX: Z00.00 Encounter for general adult medical examination without abnormal findings (principal); E11.9 Type 2 diabetes mellitus without complications; Z12.5 Encounter for screening for malignant neoplasm of prostate
CPT/HCPCS: 36415; 80061; 80076; 82043; 82570; 83036; 84153; G0103

== ENCOUNTER → 2025-10-27 | Outpatient (CLI) | payer BC, OTHER, SELFPAY ==
[2025-10-27 13:19] LABS: Hematocrit 42.1 % (40-54); Hemoglobin 13.2 g/dL (13.0-16.5); Immature Granulocytes Count 0.020 X10^3/uL (0.0-0.0); Mean Corp Hgb Conc 31.4 g/dL (32-36); Mean Corpuscular Volume 81.4 fL (80-94); Mean Platelet Vol. 10.1 fl (6.2-12.0); NRBC Flagged by Analyzer 0 % (0-5); Platelet Count 284 K/mm3 (150-450); RBC Distribution Width CV 14.9 % (11.6-14.6); RBC Distribution Width SD 44.0 fl (35.1-43.9); Red Blood Count 5.17 M/mm3 (4.6-6.2); White Blood Count 7.4 K/mm3 (4.4-11.0)
[2025-10-27 13:45] LABS: Anion Gap 11 (5-15); BUN 16 mg/dL (4-19); BUN/Creat Ratio 20.6 RATIO (10-20); Calcium,Total 9.7 mg/dL (7.6-11.0); Carbon Dioxide 25.3 mmol/L (21.0-32.0); Chloride 102 mmol/L (98-108); Glucose 76 mg/dL (70-99); Potassium 4.3 mmol/L (3.3-5.1)
== END | disposition home or self-care (01) ==
LOC: LAB 12:43
PROVIDERS: PCP Family Medicine; Referring Provider Orthopaedic Surgery; Visit Provider Orthopaedic Surgery
DX: Z01.810 Encounter for preprocedural cardiovascular examination (principal); Z01.818 Encounter for other preprocedural examination
CPT/HCPCS: 36415; 80048; 83036; 85025